=== PATIENT | female | born 1965 | race Caucasian/White ===

== ENCOUNTER → 2016-08-01 | Outpatient (CLI) | payer OTHER | LOC: RAD 12:21 | PROVIDERS: ATTEND Nurse Practitioner Adult Health | DX: M54.2 Cervicalgia (principal); M62.81 Muscle weakness (generalized) | CPT/HCPCS: 72141 ==

== ENCOUNTER 2016-08-24 13:17 | Observation (INO) | payer OTHER ==
--- NOTE | 2016-08-24 13:40 | ER Document Report ---
ED General - General Stated Complaint: FAINTING Mode of Arrival: Medic Information source: Patient Notes: 51-year-old female history of Ronnie de leon presents after a syncopal episode during which she had chest pressure sensation. Patient notes she is currently still having a pressure sensation, patient was found hypotensive by EMS bradycardic. Patient was given fluid bolus and blood pressure improved as well as the heart rate. Patient notes this happens about once every 2 years TRAVEL OUTSIDE OF THE [place] IN LAST 30 DAYS: No - HPI Onset: Just prior to arrival Onset/Duration: Sudden Quality of pain: Pressure Severity: Mild Pain Level: 1 Associated symptoms: Chest pain, Weakness Exacerbated by: Denies Relieved by: Denies Similar symptoms previously: Yes Recently seen / treated by doctor: No - Related Data Allergies/Adverse Reactions: pentazocine lactate [From Talwin] Allergy (Intermediate, Verified 11/30/13 14:04 ) diphenhydramine HCl [From Benadryl] Allergy (Mild, Verified 11/30/13 14:04) metoclopramide HCl [From Reglan] Adverse Reaction (Intermediate, Verified 14:04) Histalet Forte Allergy (Severe, Uncoded 11/30/13 14:04) Past Medical History - Social History Smoking Status: Never Smoker Cigarette use (# per day): No Chew tobacco use (# tins/day): No Smoking Education Provided: No Family History: CAD - Past Medical History Cardiac Medical History: Reports: Hx Hypertension Denies: Hx Pulmonary Embolism Pulmonary Medical History: Reports: Hx Asthma, Hx Bronchitis, Hx Pneumonia - received the pneumovax and influenza vaccine in April Denies: Hx Tuberculosis Neurological Medical History: Reports: Hx Migraine - awaiting an ablation, sees pain management in [place], on Dilaudid 4mg Endocrine Medical History: Reports: Hx Hypothyroidism GI Medical History: Reports: Hx Gastroesophageal Reflux Disease, Hx Ulcer - Stomach Musculoskeltal Medical History: Reports Hx Arthritis, Reports Hx Fibromyalgia Psychiatric Medical History: Reports: Hx Bipolar Disorder, Hx Depression - anxiety Past Surgical History: Reports: Hx Cardiac Catheterization - X 2, Hx Cholecystectomy, Hx Hysterectomy, Hx Orthopedic Surgery - r arm x 10, Hx Thyroid Surgery - thyroidectomy. Denies: Hx Pacemaker - Immunizations Immunizations up to date: Yes Hx Diphtheria, Pertussis, Tetanus Vaccination: Yes Hx Pneumococcal Vaccination: 09/01/10 Review of Systems - Review of Systems Notes: REVIEW OF SYSTEMS: CONSTITUTIONAL : Denies fever, chills, or sweats. Denies recent illness. EENT: Denies eye, ear, throat, or mouth pain or symptoms. Denies nasal or sinus congestion or discharge. Denies throat, tongue, or mouth swelling or difficulty swallowing. CARDIOVASCULAR: admits ot chest pain syncope RESPIRATORY: Denies cough, cold, or chest congestion. Denies shortness of breath, difficulty breathing, or wheezing. GASTROINTESTINAL: Denies abdominal pain or distention. Denies nausea, vomiting , or diarrhea. Denies blood in vomitus, stools, or per rectum. Denies black, tarry stools. Denies constipation. GENITOURINARY: Denies difficulty urinating, painful urination, burning, frequency, blood in urine, or discharge. FEMALE GENITOURINARY: Denies vaginal bleeding, heavy or abnormal periods, irregular periods. Denies vaginal discharge or odor. MUSCULOSKELETAL: Denies back or neck pain or stiffness. Denies joint pain or swelling. SKIN: Denies rash, lesions or sores. HEMATOLOGIC : Denies easy bruising or bleeding. LYMPHATIC: Denies swollen, enlarged glands. NEUROLOGICAL: Denies confusion or altered mental status. Denies passing out or loss of consciousness. Denies dizziness or lightheadedness. Denies headache. Denies weakness or paralysis or loss of use of either side. Denies problems with gait or speech. Denies sensory loss, numbness, or tingling. Denies seizures. PSYCHIATRIC: Denies anxiety or stress. Denies depression, suicidal ideation, or homicidal ideation. ALL OTHER SYSTEMS REVIEWED AND NEGATIVE. Dictation was performed using [employer] voice recognition software PHYSICAL EXAMINATION: GENERAL: Well-appearing, well-nourished and in no acute distress. HEAD: Atraumatic, normocephalic. EYES: Pupils equal round and reactive to light, extraocular movements intact, conjunctiva are normal. ENT: Nares patent, oropharynx clear without exudates. Moist mucous membranes. NECK: Normal range of motion, supple without lymphadenopathy LUNGS: Breath sounds clear to auscultation bilaterally and equal. No wheezes rales or rhonchi. HEART: Regular rate and rhythm without murmurs ABDOMEN: Soft, nontender, nondistended abdomen. No guarding, no rebound. No masses appreciated. Female : deferred Musculoskeletal: Normal range of motion, no pitting or edema. No cyanosis. NEUROLOGICAL: Cranial nerves grossly intact. Normal speech, normal gait. Normal sensory, motor exams PSYCH: Normal mood, normal affect. SKIN: Warm, Dry, normal turgor, no rashes or lesions noted. Physical Exam - Vital signs Vitals: Resp 27 H 08/24/16 13:29 Course - Re-evaluation Re-evalutation: 08/24/16 13:39 Patient initially bradycardic hypotensive currently asymptomatic 08/24/16 14:44 pts bp has improved , hr is now stable, cardiac enzymes negative. 08/24/16 14:47 We'll admit the patient for chest pain - Vital Signs Vital signs: Temp Pulse Resp BP Pulse Ox 98.1 F 63 20 95/71 L 97 08/24/16 13:51 08/24/16 13:51 08/24/16 14:20 08/24/16 14:21 08/24/16 14:21 - Laboratory Result Diagrams: 08/24/16 13:55 08/24/16 13:55 Laboratory results interpreted by me: 08/24/16 13:55 Glucose 121 H Total Bilirubin 1.6 H - Diagnostic Test Radiology reviewed: Image reviewed, Reports reviewed - EKG Interpretation by Nc EKG shows normal: Sinus rhythm, Carson, Intervals, QRS Complexes Discharge - Discharge Clinical Impression: Bradycardia Chest pain Qualifiers: Chest pain type: unspecified Qualified Code(s): R07.9 - Chest pain, unspecified Hypotension Qualifiers: Hypotension type: unspecified hypotension type Qualified Code(s): I95.9 - Hypotension, unspecified Syncope Qualifiers: Syncope type: unspecified Qualified Code(s): R55 - Syncope and collapse Condition: Stable Disposition: ADMITTED OBSERVATION Admitting Provider: Hospitalist Unit Admitted: Telemetry
[2016-08-24] MEDS ORDERED: NORMAL SALINE 1000 ML 1,000 ML IV ONE ×2 (14:09→15:32)
[2016-08-24 14:14] LABS: ABSOLUTE BASOPHILS # (AUTO) 0.1 10^3/uL (0.0-0.2); ABSOLUTE EOSINOPHILS # (AUTO) 0.2 10^3/uL (0.0-0.6); ABSOLUTE LYMPHOCYTES (AUTO) 2.1 10^3/uL (0.5-4.7); ABSOLUTE MONOCYTES (AUTO) 0.6 10^3/uL (0.1-1.4); ABSOLUTE NEUT (AUTO) 7.5 10^3/uL (1.7-8.2); BASOPHILS % (AUTO) 0.5 % (0-2); EOSINOPHILS % (AUTO) 1.6 % (0-6); HEMATOCRIT 39.2 % (36.0-47.0); HEMOGLOBIN 13.4 g/dL (12.0-15.5); LYMPHOCYTES % (AUTO) 20.4 % (13-45); MEAN CORPUSCULAR HEMOGLOBIN 30.8 pg (27.0-33.4); MEAN CORPUSCULAR HGB CONC 34.2 g/dL (32.0-36.0); MEAN CORPUSCULAR VOLUME 90 fl (80-97); MONOCYTES % (AUTO) 5.6 % (3-13); RED BLOOD COUNT 4.35 10^6/uL (3.72-5.28); RED CELL DISTRIBUTION WIDTH 12.9 % (11.5-14.0); SEGMENTED NEUTROPHILS % (AUTO) 71.9 % (42-78); WHITE BLOOD COUNT 10.4 10^3/uL (4.0-10.5)
[2016-08-24 14:32] LABS: ALANINE AMINOTRANSFERASE 22 U/L (9-52); ALBUMIN 3.9 g/dL (3.5-5.0); ALKALINE PHOSPHATASE 79 U/L (38-126); ANION GAP 10 (5-19); ASPARTATE AMINO TRANSFERASE 21 U/L (14-36); BILIRUBIN,TOTAL 1.6 mg/dL (0.2-1.3); BLOOD UREA NITROGEN 9 mg/dL (7-20); CALCIUM 9.2 mg/dL (8.4-10.2); CARBON DIOXIDE 24 mmol/L (22-30); CHLORIDE 105 mmol/L (98-107); CREATINE KINASE 48 U/L (30-135); CREATININE RESULT 0.57 mg/dL (0.52-1.25); GLUCOSE 121 mg/dL (75-110); POTASSIUM 3.8 mmol/L (3.6-5.0); SODIUM 138.8 mmol/L (137-145); TOTAL PROTEIN 6.6 g/dL (6.3-8.2)
[2016-08-24 14:42] LABS: CREATINE KINASE MB 0.35 ng/mL (<4.55)
[2016-08-24 14:44] LABS: TROPONIN I < 0.012 ng/mL
[2016-08-24] MEDS ORDERED: ACETAMINOPHEN 325 MG TABLET PO ONE (14:44)
[2016-08-24] MEDS ORDERED: ASPIRIN 325 MG TABLET PO ONE (14:47)
[2016-08-24] MEDS ORDERED: ACETAMINOPHEN 325 MG TABLET PO PRN (15:32)
[2016-08-24] MEDS ORDERED: MAGNESIUM HYDROXIDE SUSP 30 ML UDCUP PO PRN (15:32)
[2016-08-24] MEDS ORDERED: IPRATROPIUM/ALBUTEROL 0.5-2.5 MG/3 ML AMPUL NEB PRN ×2 (15:32→16:34)
[2016-08-24 16:14] LABS: PHOSPHORUS 3.9 mg/dL (2.5-4.5)
--- NOTE | 2016-08-24 16:18 | PDOC H&P ---
History of Present Illness Admission Date/PCP: JENNIFER JEWELL MD Patient complains of: Syncope History of Present Illness: RACHANA HODGE is a 51 year old female presents from home by EMS after a syncopal episode. She states she awoke this morning and just didn't feel right complaining of some heaviness in her chest and general malaise. Company arrived a few hours later and when she approached the front door to let them in the next thing she remembers she woke up on the floor with EMS standing over her. She reports worsening of the chest heaviness just prior to the episode. EMS reports sinus bradycardia with a rate of 42 and hypotension with a systolic blood pressure of 80, she was started on IV fluids and transported to the emergency department. She denies sharp chest pain, palpitations, dizziness, headache, vision changes, hearing changes, dysuria, fever/chills, melena, hematochezia, nausea vomiting or diarrhea, abdominal pain. No recent sick contacts. No recent travel. She does, however report recent glaucoma surgery and the use of 3 different kinds of eyedrops for the last several days though she is unsure of their names. Evaluation in the emergency department was relatively unrevealing and her blood pressure responded to fluids and is now 112/75 and heart rate is in the 70s and a normal sinus rhythm on monitor. We were asked to admit for further evaluation and management. Of note for sick cardiac enzymes are negative and her EKG shows no ischemic changes. Likewise she reports previous heart catheter in the and she was told she had a "weak heart" but no ballooning or stenting was performed at that time. Full details are a bit fuzzy. Past Medical History Cardiac Medical History: Reports: Hypertension Denies: Pulmonary Embolism Pulmonary Medical History: Reports: Asthma, Bronchitis, Pneumonia - received the pneumovax and influenza vaccine in April Denies: Tuberculosis Neurological Medical History: Reports: Migraine - awaiting an ablation, sees pain management in [place], on Dilaudid 4mg Endocrine Medical History: Reports: Hypothyroidism GI Medical History: Reports: Gastroesophageal Reflux Disease Musculoskeltal Medical History: Reports: Arthritis, Fibromyalgia Psychiatric Medical History: Reports: Bipolar Disorder, Depression - anxiety Past Surgical History Past Surgical History: Reports: Cardiac Catheterization - X 2, Cholecystectomy, Hysterectomy, Orthopedic Surgery - r arm x 10 Denies: Pacemaker Social History Smoking Status: Never Smoker Hx Recreational Drug Use: No Hx Prescription Drug Abuse: Yes - Advance Directive Resuscitation Status: Full Code Family History Family History: CAD Parental Family History Reviewed: Yes Children Family History Reviewed: Yes Sibling(s) Family History Reviewed.: Yes Medication/Allergy Home Medications: Albuterol Sulfate [Proair HFA] 2 puff IH Q4HP PRN 08/24/16 Atorvastatin Calcium [Lipitor 40 mg Tablet] 40 mg PO Q2DAYS 08/24/16 Citalopram Hydrobromide [Celexa] 40 mg PO DAILY 08/24/16 Diazepam [Valium 5 mg Tablet] 5 mg PO BIDP PRN 08/24/16 Furosemide [Lasix] 20 mg PO DAILY 08/24/16 Hydromorphone HCl [Dilaudid] 4 mg PO Q6HP PRN 08/24/16 Ipratropium/Albuterol Sulfate [Duoneb 3 ml Ampul] 1 vial IH Q4HP PRN 08/24/16 Levothyroxine Sodium [Synthroid 0.15 mg Tablet] 0.15 mg PO DAILY 08/24/16 Morphine Sulfate [Ms-Contin Sr 15 mg Tablet] 15 mg PO BID 08/24/16 Omeprazole 40 mg PO DAILY 08/24/16 Oxcarbazepine [Trileptal] 300 mg PO BID 08/24/16 Promethazine HCl [Phenergan 25 mg Tablet] 25 mg PO DAILYP PRN 08/24/16 Risperidone [Risperdal] 2 mg PO BID 08/24/16 Temazepam [Restoril 15 mg Capsule] 15 mg PO HSP PRN 08/24/16 Travoprost (Benzalkonium) [Travatan 0.004% Eye Drop] 1 drop OS QHS 08/24/16 Allergies/Adverse Reactions: pentazocine lactate [From Talwin] Allergy (Intermediate, Verified 11/30/13 14:04 ) diphenhydramine HCl [From Benadryl] Allergy (Mild, Verified 11/30/13 14:04) metoclopramide HCl [From Reglan] Adverse Reaction (Intermediate, Verified 14:04) Histalet Forte Allergy (Severe, Uncoded 11/30/13 14:04) Review of Systems Constitutional: ABSENT: chills, fever(s), headache(s), weight gain, weight loss Eyes: ABSENT: visual disturbances Ears: ABSENT: hearing changes Cardiovascular: PRESENT: chest pain. ABSENT: dyspnea on exertion, edema, orthropnea, palpitations Respiratory: ABSENT: cough, hemoptysis Gastrointestinal: ABSENT: abdominal pain, constipation, diarrhea, hematemesis, hematochezia, nausea, vomiting Genitourinary: ABSENT: dysuria, hematuria Musculoskeletal: ABSENT: joint swelling Integumentary: ABSENT: rash, wounds Neurological: ABSENT: abnormal gait, abnormal speech, confusion, dizziness, focal weakness, syncope Psychiatric: ABSENT: anxiety, depression Endocrine: ABSENT: cold intolerance, heat intolerance, polydipsia, polyuria Hematologic/Lymphatic: ABSENT: easy bleeding, easy bruising Physical Exam Vital Signs: Temp Pulse Resp BP Pulse Ox 98.1 F 63 20 95/71 L 97 08/24/16 13:51 08/24/16 13:51 08/24/16 14:20 08/24/16 14:21 08/24/16 14:21 Intake & Output 08/23/16 08/24/16 08/25/16 06:59 06:59 06:59 Weight 79.379 kg PHYSICAL EXAM GENERAL: NAD; well developed, well nourished; no obese; alert and oriented to person, place, time, situation HEENT: normocephalic, atraumatic; EOMI, PERRLA, right greater than left conjunctival injection, no scleral icterus; oral mucosa moist, neck supple, no LAD, normal ROM RESPIRATORY: no accessory muscle use, no increased WOB, good air entry bilaterally; no wheezes, rales, rhonchi; no inspiratory crackles CARDIO: no JVD; RRR; no systolic murmur; no tachycardia; normal sinus rhythm on the monitor without ectopy VASCULAR: no carotid bruit; no abdominal bruit; no pallor; 2+ radial, DP pulse ; normal capillary refill GI: soft; nondistended; normal bowel sounds; no hepato spleno megaly; no rebound, rigidity, guarding; nontender NEURO: normal patella reflexes; normal sensation; normal motor function; no dysarthria; no nystagmus; tongue protrudes midline; normal finger to nose; MSK: 5/5 strength; normal ROM hips; ambulatory without assistance; no tenderness EXTREMITIES: no calf tender; no palpable cords in calf; no clubbing, cyanosis , pedal edema PSYCH: normal affect, normal mood SKIN: warm; moist; no petechiae; no telengectasias; no jaundice; no rash Results Laboratory Results: 08/24/16 13:55 08/24/16 13:55 08/24/16 08/24/16 08/24/16 13:55 13:55 13:55 WBC 10.4 RBC 4.35 Hgb 13.4 Hct 39.2 MCV 90 MCH 30.8 MCHC 34.2 RDW 12.9 Plt Count 203 Seg Neutrophils % 71.9 Lymphocytes % 20.4 Monocytes % 5.6 Eosinophils % 1.6 Basophils % 0.5 Absolute Neutrophils 7.5 Absolute Lymphocytes 2.1 Absolute Monocytes 0.6 Absolute Eosinophils 0.2 Absolute Basophils 0.1 Sodium 138.8 Potassium 3.8 Chloride 105 Carbon Dioxide 24 Anion Gap 10 BUN 9 Creatinine 0.57 Est GFR ( Amer) > 60 Est GFR (Non-Af Amer) > 60 Glucose 121 H Lactic Acid 1.4 Calcium 9.2 Total Bilirubin 1.6 H AST 21 ALT 22 Alkaline Phosphatase 79 Total Protein 6.6 Albumin 3.9 08/24/16 08/24/16 13:55 13:55 Creatine Kinase 48 CK-MB (CK-2) 0.35 Troponin I < 0.012 Labs reviewed and relatively unremarkable Assessment & Plan - Diagnosis (1) Bradycardia Is this a current diagnosis for this admission?: YesPlan: Unclear etiology. Possible adverse reaction to medication if she is taking timolol eyedrops for her recent glaucoma. Admit to telemetry floor for overnight monitoring, trend cardiac enzymes and check a stat echocardiogram. (2) Hypotension Qualifiers: Hypotension type: unspecified hypotension type Qualified Code(s): I95.9 - Hypotension, unspecified Plan: Unclear etiology. Continue IV fluids started in the emergency department and monitor volume status. Otherwise investigation as above. (3) Syncope Qualifiers: Syncope type: unspecified Qualified Code(s): R55 - Syncope and collapse Is this a current diagnosis for this admission?: YesPlan: Likely related to the above, and investigation as noted. Also check magnesium, phosphorus, B12. Patient reports recent TSH that was normal. Check carotid Dopplers. (4) Bipolar I disorder Is this a current diagnosis for this admission?: YesPlan: Resume home regimen. (5) Opioid dependence Is this a current diagnosis for this admission?: YesPlan: Titrate home regimen and based on her clinical condition at the time. - Time Time Spent: 50 to 70 Minutes Medications reviewed and adjusted accordingly: Yes Anticipated discharge: Home Within: within 24 hours
[2016-08-24] MEDS ORDERED: ALBUTEROL SULFATE HFA (90 MCG/PUFF) 8 GM MDI (1 MDI/ER DISP) IH PRN (16:34)
[2016-08-24] MEDS ORDERED: PROMETHAZINE HCL 25 MG TABLET PO PRN (16:34)
[2016-08-24] MEDS ORDERED: TEMAZEPAM 15 MG CAPSULE PO PRN (16:34)
[2016-08-24 17:32] LABS: APPEARANCE,URINE SLIGHTLY-CLOUDY; BILIRUBIN,URINE NEGATIVE (NEGATIVE); GLUCOSE, URINE NEGATIVE (NEGATIVE); KETONES,URINE NEGATIVE (NEGATIVE); LEUKOCYTE ESTERASE,URINE NEGATIVE (NEGATIVE); NITRITE,URINE NEGATIVE (NEGATIVE); PROTEIN,URINE NEGATIVE (NEGATIVE); URINE SPECIFIC GRAVITY 1.005; UROBILINOGEN,URINE NEGATIVE mg/dL (<2.0)
[2016-08-24 17:48] LABS: URINE METHADONE SCREEN NEGATIVE; URINE OPIATES LOW UNCONFIRMED POSITIVE; URINE PHENCYCLIDINE SCREEN NEGATIVE
[2016-08-24 17:54] LABS: URINE BARBITURATES SCREEN NEGATIVE
[2016-08-24] MEDS ORDERED: BESIFLOXACIN HCL 0.6% OPH SUSP 5 ML BOTTLE OD SCH (18:00)
[2016-08-24] MEDS ORDERED: (PENDING PHARMACY ID) (Loteprednol Etabonate [Lotemax] 1 DROP) OD SCH (18:00)
[2016-08-24] MEDS: NORMAL SALINE 1000 ML 1,000 ML IV PRN (18:20)
--- NOTE | 2016-08-24 18:30 | XCELERA REPORT ---
[address] [address] Transthoracic Echocardiogram Report Name: RACHANA HODGE Age: 51 yrs Gender: Female : 1965 Patient Status: Inpatient Patient Location: \S\02\S\A Study Date: 08/24/2016 05:18 PM Height: 65 in Weight: 175 lb BSA: 1.9 m2 Procedure: A complete two-dimensional transthoracic echocardiogram was performed (2D, M-mode, spectral and color flow Doppler). The study was technically adequate with some images being suboptimal in quality. Reason For Study: SYNCOPE Ordering Physician: CARMEN DUVALL Performed By: Norma Pop Interpretation Summary The left ventricular ejection fraction is normal. Doppler measurements suggest pseudonormalized left ventricular relaxation, which is associated with grade II/IV or mild to moderate diastolic dysfunction There is borderline concentric left ventricular hypertrophy. The left ventricle is grossly normal size. Wall motion cannot be accurately commented on, but no definite regional wall motion abnormalities noted. Borderline right ventricular enlargement. The right ventricular systolic function is normal. The right atrium is normal in size The left atrial size is normal. There is no mitral valve stenosis. There is no mitral regurgitation noted. There is no aortic valve stenosis No aortic regurgitation is present. There is no tricuspid stenosis. There is a trace or physiologic amount of tricuspid regurgitation Tricuspid regurgitation jet envelope not well defined to measure RV systolic pressure accurately. There is no pericardial effusion. MMode/2D Measurements \T\ Calculations RVDd: 2.4 cm LVIDd: 4.5 cm FS: 32.9 % Ao root diam: 3.0 cm IVSd: 1.0 cm LVIDs: 3.0 cm EDV(Teich): 91.5 ml LVPWd: 0.95 cmESV(Teich): 35.2 ml Ao root area: 7.0 cm2 EF(Teich): 61.6 % LA dimension: 3.5 cm LVOT diam: 1.8 cm LVOT area: 2.5 cm2 Doppler Measurements \T\ Calculations MV E max yareli: MV P1/2t max yareli: Ao V2 max: LV V1 max P.1 cm/sec 110.1 cm/sec 159.5 cm/sec 6.1 mmHg MV A max yareli: MV P1/2t: 64.7 msec Ao max PG: LV V1 max: 101.2 cm/sec MVA(P1/2t): 3.4 cm2 10.2 mmHg 123.9 cm/sec MV E/A: 1.1 MV dec slope: KRYSTAL(V,D): 2.0 cm2 498.4 cm/sec2 PA V2 max: TR max yareli: 82.9 cm/sec 197.6 cm/sec PA max PG: TR max P.6 mmHg 2.8 mmHg Left Ventricle The left ventricle is grossly normal size. There is borderline concentric left ventricular hypertrophy. The left ventricular ejection fraction is normal. Doppler measurements suggest pseudonormalized left ventricular relaxation, which is associated with grade II/IV or mild to moderate diastolic dysfunction. Wall motion cannot be accurately commented on, but no definite regional wall motion abnormalities noted. Right Ventricle Borderline right ventricular enlargement. There is normal right ventricular wall thickness. The right ventricular systolic function is normal. Atria The right atrium is normal in size. The left atrial size is normal. Interarterial septum not well visualized and not well dopplered. Cannot comment on ASD/PFO presence. Mitral Valve The mitral valve is grossly normal. There is no mitral valve stenosis. There is no mitral regurgitation noted. Aortic Valve The aortic valve is grossly normal. There is no aortic valve stenosis. No aortic regurgitation is present. Tricuspid Valve The tricuspid valve is not well visualized, but is grossly normal. There is no tricuspid stenosis. There is a trace or physiologic amount of tricuspid regurgitation. Tricuspid regurgitation jet envelope not well defined to measure RV systolic pressure accurately. Pulmonic Valve The pulmonic valve is not well visualized. Great Vessels The aortic root is not well visualized but is probably normal size. The inferior vena cava was not well visualized. Effusions There is no pericardial effusion. : CARMEN DUVALL > Indigo [facility]
--- NOTE | 2016-08-24 19:29 | EKG REPORT ---
SEVERITY:- ABNORMAL ECG - SINUS RHYTHM LEFT VENTRICULAR HYPERTROPHY : Confirmed by: Yadi Rosas MD 24-Aug-2016 19:28:13
[2016-08-24] MEDS ORDERED: RISPERIDONE 1 MG TABLET PO SCH (22:00)
[2016-08-24] MEDS ORDERED: OXCARBAZEPINE 150 MG TABLET PO SCH (22:00)
[2016-08-24] MEDS ORDERED: MORPHINE SULFATE SR 15 MG TABLET PO SCH (22:00)
[2016-08-24] MEDS ORDERED: (PENDING PHARMACY ID) (Travoprost (Benzalkonium) [Travatan 0.004% Eye Drop] 1 DROP) OS SCH (22:00)
[2016-08-24] MEDS ORDERED: PROMETHAZINE HCL INJ 25 MG/1 ML VIAL IV PRN (22:55)
[2016-08-25] MEDS: NORMAL SALINE 1000 ML 1,000 ML IV PRN (05:30)
[2016-08-25] MEDS ORDERED: ENOXAPARIN SODIUM INJ 40 MG/0.4 ML DISP.SYRIN SUBCUT SCH (08:00)
[2016-08-25] MEDS ORDERED: LANSOPRAZOLE 30 MG TAB.RAP.DR PO SCH (08:00)
[2016-08-25 09:31] VITALS: BP 141/86
[2016-08-25] MEDS ORDERED: CITALOPRAM HYDROBROMIDE 20 MG TABLET PO SCH (10:00)
[2016-08-25] MEDS ORDERED: BRIMONIDINE TARTRATE 0.2% OPH SOLN 5 ML OS SCH (10:00)
[2016-08-25] MEDS ORDERED: DORZOLAMIDE HCL 2% OPH SOLN 10 ML OS SCH (10:00)
[2016-08-25] MEDS ORDERED: DOCUSATE SODIUM 100 MG CAPSULE PO SCH (10:00)
[2016-08-25] MEDS ORDERED: LEVOTHYROXINE SODIUM 0.15 MG TABLET PO SCH (10:00)
--- NOTE | 2016-08-25 13:47 | PDOC DISCHARGE SUMMARY ---
General - Admit/Disc Date/PCP Admission Date/Primary Care Provider: 08/24/16 15:32 JENNIFER JEWELL MD Discharge Date: 08/25/16 - Discharge Diagnosis (1) Bradycardia Is this a current diagnosis for this admission?: YesSummary: Unclear etiology. Possible adverse reaction to pain medication or vasovagal reaction. (2) Hypotension Summary: Possible volume completion due to lack of oral intake over the last 48 hours, seems to have resolved with IV fluids. Possibly vasovagal reaction as noted above. (3) Syncope Is this a current diagnosis for this admission?: YesSummary: Appears to be vasovagal syncope, unclear trigger. Patient reports several family members suffer from similar "drop attacks" and she too had multiple episodes of "falling out" as a teenager. This is the first such attack she has suffered in several years. She was instructed if this were to recur to pursue neurologic and cardiac evaluation with tilt table testing looking for vasovagal hyperactivity. (4) Bipolar I disorder Is this a current diagnosis for this admission?: Yes (5) Opioid dependence Is this a current diagnosis for this admission?: YesSummary: She was counseled that the potent narcotic regimen she takes predisposes to vasovagal syncope and sensitivity but she is reluctant to reduce her dosages. She is to follow-up with her pain clinic physician for further recommendations. - Additional Information Resuscitation Status: Full Code Discharge Diet: As Tolerated Discharge Activity: Activity As Tolerated Home Medications: Albuterol Sulfate [Proair HFA] 2 puff IH Q4HP PRN 08/24/16 Atorvastatin Calcium [Lipitor 40 mg Tablet] 40 mg PO Q2DAYS 08/24/16 Besifloxacin HCl [Besivance Drops] 1 drop OD TID 08/24/16 Brimonidine Tartrate [Alphagan 0.2% Oph Soln 5 ml] 1 drop OS TID 08/24/16 Citalopram Hydrobromide [Celexa] 40 mg PO DAILY 08/24/16 Diazepam [Valium 5 mg Tablet] 5 mg PO BIDP PRN 08/24/16 Dorzolamide HCl [Trusopt Plus 2% Oph Soln 10 ml] 1 drop OS TID 08/24/16 Furosemide [Lasix] 20 mg PO DAILY 08/24/16 Hydromorphone HCl [Dilaudid] 4 mg PO Q6HP PRN 08/24/16 Ipratropium/Albuterol Sulfate [Duoneb 3 ml Ampul] 1 vial IH Q4HP PRN 08/24/16 Levothyroxine Sodium [Synthroid 0.15 mg Tablet] 0.15 mg PO DAILY 08/24/16 Loteprednol Etabonate [Lotemax] 1 drop OD QID 08/24/16 Morphine Sulfate [Ms-Contin Sr 15 mg Tablet] 15 mg PO BID 08/24/16 Omeprazole 40 mg PO DAILY 08/24/16 Oxcarbazepine [Trileptal] 300 mg PO BID 08/24/16 Promethazine HCl [Phenergan 25 mg Tablet] 25 mg PO Q6H PRN 08/24/16 Risperidone [Risperdal] 2 mg PO BID 08/24/16 Temazepam [Restoril 15 mg Capsule] 15 mg PO HSP PRN 08/24/16 Travoprost (Benzalkonium) [Travatan 0.004% Eye Drop] 1 drop OS QHS 08/24/16 History of Present Illness Patient complains of: Syncope History of Present Illness: presents from home by EMS after a syncopal episode. Hospital Course Hospital Course: She states she awoke this morning and just didn't feel right complaining of some heaviness in her chest and general malaise. Company arrived a few hours later and when she approached the front door to let them in the next thing she remembers she woke up on the floor with EMS standing over her. She reports worsening of the chest heaviness just prior to the episode. EMS reports sinus bradycardia with a rate of 42 and hypotension with a systolic blood pressure of 80, she was started on IV fluids and transported to the emergency department. She denies sharp chest pain, palpitations, dizziness, headache, vision changes, hearing changes, dysuria, fever/chills, melena, hematochezia, nausea vomiting or diarrhea, abdominal pain. No recent sick contacts. No recent travel. She does, however report recent glaucoma surgery and the use of 3 different kinds of eyedrops for the last several days though she is unsure of their names. Evaluation in the emergency department was relatively unrevealing and her blood pressure responded to fluids and is now 112/75 and heart rate is in the 70s and a normal sinus rhythm on monitor. We were asked to admit for further evaluation and management. Of note for sick cardiac enzymes are negative and her EKG shows no ischemic changes. Likewise she reports previous heart catheter in the and she was told she had a "weak heart" but no ballooning or stenting was performed at that time. Full details are a bit fuzzy. She was admitted to the hospital and underwent an investigation with the laboratory work that showed no evidence of cardiac ischemia, echocardiogram was largely unremarkable just showing a mild LVH, carotid Dopplers did not reveal any significant plaquing or stenosis and all of her laboratory work was largely unrevealing, her B12 level was low normal. She was instructed to begin oral B12 replacement therapy. Overnight monitoring on telemetry revealed only a very mild bradycardia dropping to 57 and her BP responded to IVFs without recurrence of her symptoms throughout her stay. at this point she is stable for discharge home and expresses no concerns to me about doing so at this time. Physical Exam Vital Signs: Temp Pulse Resp BP Pulse Ox 97.7 F 64 16 141/86 H 99 08/25/16 09:00 08/25/16 09:00 08/25/16 09:00 08/25/16 09:00 08/25/16 09:00 Intake & Output 08/24/16 08/25/16 08/26/16 06:59 06:59 06:59 Intake Total 1600 Output Total 800 Balance 800 Weight 96.8 kg PHYSICAL EXAM GENERAL: NAD; well developed, well nourished; no obese; alert and oriented to person, place, time, situation HEENT: normocephalic, atraumatic; EOMI, PERRLA, right greater than left conjunctival injection, no scleral icterus; oral mucosa moist, neck supple, no LAD, normal ROM RESPIRATORY: no accessory muscle use, no increased WOB, good air entry bilaterally; no wheezes, rales, rhonchi; no inspiratory crackles CARDIO: no JVD; RRR; no systolic murmur; no tachycardia; normal sinus rhythm on the monitor without ectopy VASCULAR: no carotid bruit; no abdominal bruit; no pallor; 2+ radial, DP pulse ; normal capillary refill GI: soft; nondistended; normal bowel sounds; no hepato spleno megaly; no rebound, rigidity, guarding; nontender NEURO: normal patella reflexes; normal sensation; normal motor function; no dysarthria; no nystagmus; tongue protrudes midline; normal finger to nose; MSK: 5/5 strength; normal ROM hips; ambulatory without assistance; no tenderness EXTREMITIES: no calf tender; no palpable cords in calf; no clubbing, cyanosis , pedal edema PSYCH: normal affect, normal mood SKIN: warm; moist; no petechiae; no telengectasias; no jaundice; no rash Results Laboratory Results: 08/24/16 17:10 Urine Color YELLOW Urine Appearance SLIGHTLY-CLOUDY Urine pH 6.0 Ur Specific [place] 1.005 Urine Protein NEGATIVE Urine Glucose (UA) NEGATIVE Urine Ketones NEGATIVE Urine Blood NEGATIVE Urine Nitrite NEGATIVE Ur Leukocyte Esterase NEGATIVE Urine WBC (Auto) 2 08/24/16 08/25/16 08/25/16 20:50 02:02 08:27 Troponin I < 0.012 < 0.012 < 0.012 Impressions: Carotid Doppler Study 08/24/16 00:00 IMPRESSION: NO HEMODYNAMICALLY SIGNIFICANT STENOSIS. Head CT 08/24/16 00:00 IMPRESSION: NORMAL BRAIN CT WITHOUT CONTRAST. Qualifiers PATEINT BEING DISCHARGED WITH ANY OF THE FOLLOWING DIAGNOSIS?: No VTE patient discharged on overlapping Therapy?: Yes Plan Discharge Plan: Discharge home with outpatient follow-up with his primary care provider in one week, return to the emergency department for any recurrent symptoms.
== END 2016-08-25 10:05 | disposition home or self-care (01) ==
LOC: ER 13:17 → EH 15:32 → UNDOADMOB 15:41 → EH 15:41 → 4W 19:41
PROVIDERS: ADMIT Internal Medicine; ATTEND Internal Medicine
DX: R00.1 Bradycardia, unspecified (principal); I95.9 Hypotension, unspecified; R55 Syncope and collapse; F31.9 Bipolar disorder, unspecified; F11.20 Opioid dependence, uncomplicated; I10 Essential (primary) hypertension; J45.909 Unspecified asthma, uncomplicated; E03.9 Hypothyroidism, unspecified; K21.9 Gastro-esophageal reflux disease without esophagitis; R07.9 Chest pain, unspecified
CPT/HCPCS: 93005; 99285; 36415 ×2; 82553; 82607; 82550; 83605; 83735; 84100; 85025; 80053; 81001; 84484 ×2; 80307; 83036; 93306; 93880; 70450; 93010; G0378 ×3; J3490 ×4; J7030 ×2

== ENCOUNTER → 2018-02-21 | Outpatient (CLI) | payer OTHER ==
--- NOTE | 2018-02-22 10:49 | RADIOLOGY REPORT (SQ) ---
EXAM DESCRIPTION: MRI LUMBAR SPINE WITHOUT COMPLETED DATE/TIME: 02/21/2018 3:05 pm REASON FOR STUDY: LOW BACK PAIN M47.817 SPONDYLS W/O MYELOPATHY OR RADICULOPATHY, LUMBOSACR COMPARISON: None. TECHNIQUE: Sagittal and Axial imaging includes T1, T2, STIR and gradient echo sequences. Coronal T2/ HASTE imaging. LIMITATIONS: None. FINDINGS: VISUALIZED UPPER ABDOMEN: Limited evaluation. No acute or suspicious findings suggested. SEGMENTATION: No transitional anatomy. The lowest well-developed disc space is labeled L5-S1. ALIGNMENT: Minimal grade 1 listhesis L4-5. VERTEBRAE: Intact. BONE MARROW: Normal. No marrow replacement or reactive changes. DISC SIGNAL: Discs are relatively maintained. POSTERIOR ELEMENTS: No pars defect. Multilevel facet arthropathy. HARDWARE: None in the spine. CORD AND CONUS: Normal in size and signal intensity. Conus at the appropriate level. SOFT TISSUES: No aortic aneurysm seen. No bulky retroperitoneal adenopathy or mass. No paraspinal mas s or fluid. L1-L2: No significant spinal stenosis or exit foraminal stenosis. L2-L3: Mild left foraminal narrowing. L3-L4: Mild bilateral foraminal narrowing. L4-L5: Minimal central canal encroachment. Moderate bilateral foraminal narrowing. L5-S1: No significant spinal stenosis or exit foraminal stenosis. LOWER THORACIC: Incompletely imaged. No stenosis seen. SACRUM: Visualized upper sacrum intact. OTHER: No other significant findings. IMPRESSION: 1. Spondylosis. Degenerative changes are largely related to facet arthropathy. No lar ge disc bulges or hernias. No high-grade central narrowing. Up to moderate foraminal stenosis at th e L4-5 level. TECHNICAL DOCUMENTATION: JOB ID: [id number] [facility]- All Rights Reserved Reading location - IP/workstation name: [email or web address]
== END ==
LOC: RAD 14:28
PROVIDERS: ATTEND Physician Assistant
DX: M47.817 Spondylosis without myelopathy or radiculopathy, lumbosacral region (principal)
CPT/HCPCS: 72148

== ENCOUNTER → 2018-11-30 | Outpatient (CLI) | payer OTHER ==
--- NOTE | 2018-11-30 19:26 | EKG REPORT ---
SEVERITY:- ABNORMAL ECG - SINUS RHYTHM LEFT VENTRICULAR HYPERTROPHY : Confirmed by: Chivo Hsu MD 30-Nov-2018 19:25:23
== END ==
LOC: OD 15:14
PROVIDERS: ATTEND Physician Assistant
DX: Z79.899 Other long term (current) drug therapy (principal)
CPT/HCPCS: 93005; 93010

== ENCOUNTER 2019-06-01 10:49 | Emergency (ER) | payer OTHER ==
--- NOTE | 2019-06-01 11:08 | ER Document Report ---
ED Medical Screen (RME) - General Chief Complaint: Chest Pain Stated Complaint: CHEST PAIN Time Seen by Provider: 06/01/19 11:03 Primary Care Provider: RICHELLE ROSAS PA [Primary Care Provider] - Follow up as needed Notes: 53-year-old female with hypertension, hyperlipidemia, asthma, GERD, bipolar disorder, generalized anxiety disorder presents the emergency department with chest pain that started at 830 this morning. Patient states that she just felt very sluggish and was unable to get up to run errands and has had a pressure like feeling in her chest that radiates into her left arm. Patient did have some nausea last night. Denies diaphoresis, denies dyspnea on exertion or shortness of breath, patient is not a smoker Exam: Well acute appearing in no acute distress, lungs are clear to auscultation all [place], regular cardiac rate and rhythm, S1-S2 heard with no murmurs I have greeted and performed a rapid initial assessment of this patient. A comprehensive ED assessment and evaluation of the patient, analysis of test results and completion of medical decision making process will be conducted by an additional ED providers. TRAVEL OUTSIDE OF THE [place] IN LAST 30 DAYS: No - Related Data Allergies/Adverse Reactions: pentazocine lactate [From Talwin] Allergy (Intermediate, Verified 06/01/19 11:03) diphenhydramine HCl [From Benadryl] Allergy (Mild, Verified 06/01/19 11:03) metoclopramide HCl [From Reglan] Adverse Reaction (Intermediate, Verified 06/01/19 11:03) Histalet Forte Allergy (Severe, Uncoded 06/01/19 11:03) Past Medical History - Past Medical History Cardiac Medical History: Reports: Hx Hypertension Denies: Hx Pulmonary Embolism Pulmonary Medical History: Reports: Hx Asthma, Hx Bronchitis, Hx Pneumonia - received the pneumovax and influenza vaccine in April Denies: Hx Tuberculosis Neurological Medical History: Reports: Hx Migraine - awaiting an ablation, sees pain management in [place], on Dilaudid 4mg Endocrine Medical History: Reports: Hx Hypothyroidism GI Medical History: Reports: Hx Gastroesophageal Reflux Disease, Hx Ulcer - Stomach Musculoskeltal Medical History: Reports Hx Arthritis, Reports Hx Fibromyalgia Psychiatric Medical History: Reports: Hx Bipolar Disorder, Hx Depression - anxiety Past Surgical History: Reports: Hx Cardiac Catheterization - X 2, Hx Cholecystectomy, Hx Hysterectomy, Hx Orthopedic Surgery - r arm x 10, Hx Thyroid Surgery - thyroidectomy. Denies: Hx Pacemaker - Immunizations Immunizations up to date: Yes Hx Diphtheria, Pertussis, Tetanus Vaccination: Yes Doctor's Discharge - Discharge Referrals: RICHELLE ROSAS PA [Primary Care Provider] - Follow up as needed
[2019-06-01 11:39] LABS: ABSOLUTE BASOPHILS # (AUTO) 0.1 10^3/uL (0.0-0.2); ABSOLUTE EOSINOPHILS # (AUTO) 0.2 10^3/uL (0.0-0.6); ABSOLUTE LYMPHOCYTES (AUTO) 1.9 10^3/uL (0.5-4.7); ABSOLUTE MONOCYTES (AUTO) 0.6 10^3/uL (0.1-1.4); ABSOLUTE NEUT (AUTO) 4.8 10^3/uL (1.7-8.2); BASOPHILS % (AUTO) 0.8 % (0-2); EOSINOPHILS % (AUTO) 2.2 % (0-6); HEMATOCRIT 41.3 % (36.0-47.0); HEMOGLOBIN 14.4 g/dL (12.0-15.5); LYMPHOCYTES % (AUTO) 25.3 % (13-45); MEAN CORPUSCULAR HEMOGLOBIN 31.7 pg (27.0-33.4); MEAN CORPUSCULAR HGB CONC 34.8 g/dL (32.0-36.0); MEAN CORPUSCULAR VOLUME 91 fl (80-97); MONOCYTES % (AUTO) 8.2 % (3-13); PLATELET COUNT 193 10^3/uL (150-450); RED BLOOD COUNT 4.53 10^6/uL (3.72-5.28); RED CELL DISTRIBUTION WIDTH 13.6 % (11.5-14.0); SEGMENTED NEUTROPHILS % (AUTO) 63.5 % (42-78); TOTAL CELLS COUNTED % (AUTO) 100 %; WHITE BLOOD COUNT 7.6 10^3/uL (4.0-10.5)
[2019-06-01 12:16] LABS: ALKALINE PHOSPHATASE 70 U/L (38-126); ANION GAP 10 (5-19); ASPARTATE AMINO TRANSFERASE 20 U/L (14-36); BILIRUBIN,DIRECT 0.1 mg/dL (0.0-0.4); BILIRUBIN,TOTAL 0.9 mg/dL (0.2-1.3); BLOOD UREA NITROGEN 5 mg/dL (7-20); CALCIUM 8.9 mg/dL (8.4-10.2); CARBON DIOXIDE 26 mmol/L (22-30); CHLORIDE 105 mmol/L (98-107); GLUCOSE 129 mg/dL (75-110); POTASSIUM 3.6 mmol/L (3.6-5.0); TOTAL PROTEIN 7.1 g/dL (6.3-8.2)
--- NOTE | 2019-06-01 12:28 | RADIOLOGY REPORT (SQ) ---
EXAM DESCRIPTION: CHEST 2 VIEWS COMPLETED DATE/TIME: 06/01/2019 12:21 pm REASON FOR STUDY: chest pain COMPARISON: 12/01/2013 EXAM PARAMETERS: NUMBER OF VIEWS: two views TECHNIQUE: Digital Frontal and Lateral radiographic views of the chest acquired. RADIATION DOSE: NA LIMITATIONS: none FINDINGS: LUNGS AND PLEURA: No opacities, masses or pneumothorax. No pleural effusion. MEDIASTINUM AND HILAR STRUCTURES: No masses or contour abnormalities. HEART AND VASCULAR STRUCTURES: Heart normal size. No evidence for failure. BONES: No acute findings. HARDWARE: None in the chest. OTHER: No other significant finding. IMPRESSION: NO ACUTE RADIOGRAPHIC FINDING IN THE CHEST. TECHNICAL DOCUMENTATION: JOB ID: [id number] [employer]- All Rights Reserved Reading location - IP/workstation name: [email or web address]
[2019-06-01] MEDS ORDERED: HYDROMORPHONE HCL 2 MG TABLET PO ONE (14:17)
[2019-06-01] MEDS ORDERED: ASPIRIN 81 MG TABLET, CHEWABLE PO ONE (14:17)
--- NOTE | 2019-06-01 14:27 | ER Document Report ---
ED General - General Chief Complaint: Chest Pain Stated Complaint: CHEST PAIN Time Seen by Provider: 06/01/19 11:03 Primary Care Provider: MAYELA KEARNS MD [ACTIVE STAFF] - Follow up as needed RICHELLE ROSAS PA [PHYSICIAN DOOR INSTALLER] - Follow up as needed Notes: 53 year old female arrives with complaints of chest pain since 8:30-9:00 this am. She was up and watching tv when the pain first started. It is a heaviness in her left chest and radiates to left shoulder and down arm to about her elbow. Nothing seems to make this pain better or worse. No fever or chills. No recent illness. TRAVEL OUTSIDE OF THE [place] IN LAST 30 DAYS: No - HPI Exacerbated by: Denies Relieved by: Denies - Related Data Allergies/Adverse Reactions: pentazocine lactate [From Talwin] Allergy (Intermediate, Verified 06/01/19 11:03) diphenhydramine HCl [From Benadryl] Allergy (Mild, Verified 06/01/19 11:03) metoclopramide HCl [From Reglan] Adverse Reaction (Intermediate, Verified 06/01/19 11:03) Histalet Forte Allergy (Severe, Uncoded 06/01/19 11:03) Home Medications: HTN, HYPOGLYCEMIA, HIGH CHOLESTROL, ASTHMA, BIPOLAR, Past Medical History - Social History Smoking Status: Never Smoker Frequency of alcohol use: None Drug Abuse: None Family History: CAD Patient has suicidal ideation: No Patient has homicidal ideation: No - Past Medical History Cardiac Medical History: Reports: Hx Hypertension Denies: Hx Pulmonary Embolism Pulmonary Medical History: Reports: Hx Asthma, Hx Bronchitis, Hx Pneumonia - received the pneumovax and influenza vaccine in April Denies: Hx Tuberculosis Neurological Medical History: Reports: Hx Migraine - awaiting an ablation, sees pain management in [place], on Dilaudid 4mg Endocrine Medical History: Reports: Hx Hypothyroidism GI Medical History: Reports: Hx Gastroesophageal Reflux Disease, Hx Ulcer - Stomach Musculoskeletal Medical History: Reports Hx Arthritis, Reports Hx Fibromyalgia Psychiatric Medical History: Reports: Hx Bipolar Disorder, Hx Depression - anxiety Past Surgical History: Reports: Hx Cardiac Catheterization - X 2, Hx Cholecystectomy, Hx Hysterectomy, Hx Orthopedic Surgery - r arm x 10, Hx Thyroid Surgery - thyroidectomy. Denies: Hx Pacemaker - Immunizations Immunizations up to date: Yes Hx Diphtheria, Pertussis, Tetanus Vaccination: Yes Hx Pneumococcal Vaccination: 02/28/10 Review of Systems - Review of Systems Constitutional: No symptoms reported EENT: No symptoms reported Cardiovascular: See HPI, Chest pain. denies: No symptoms reported Respiratory: No symptoms reported Gastrointestinal: No symptoms reported Genitourinary: No symptoms reported Female Genitourinary: No symptoms reported Musculoskeletal: No symptoms reported Skin: No symptoms reported Hematologic/Lymphatic: No symptoms reported Neurological/Psychological: No symptoms reported Physical Exam - Vital signs Vitals: Temp Pulse Resp BP Pulse Ox 97.5 F 58 L 16 141/77 H 95 06/01/19 11:03 06/01/19 11:03 06/01/19 11:03 06/01/19 11:03 06/01/19 11:03 Interpretation: Normal - General General appearance: Appears well, Alert - HEENT Head: Normocephalic, Atraumatic Eyes: Normal Pupils: PERRL - Respiratory Respiratory status: No respiratory distress Chest status: Nontender Breath sounds: Normal Chest palpation: Normal - Cardiovascular Rhythm: Regular Heart sounds: Normal auscultation Murmur: No - Abdominal Inspection: Normal Distension: No distension Bowel sounds: Normal Tenderness: Nontender Organomegaly: No organomegaly - Back Back: Normal, Nontender - Extremities General upper extremity: Normal inspection, Nontender, Normal color, Normal ROM, Normal temperature General lower extremity: Normal inspection, Nontender, Normal color, Normal ROM, Normal temperature, Normal weight bearing. No: Leslie's sign - Neurological Neuro grossly intact: Yes Cognition: Normal Orientation: AAOx4 Les Coma Scale Eye Opening: Spontaneous [place] Coma Scale Verbal: Oriented [place] Coma Scale Motor: Obeys Commands Les Coma Scale Total: 15 Speech: Normal Motor strength normal: LUE, RUE, LLE, RLE Sensory: Normal - Psychological Associated symptoms: Normal affect, Normal mood - Skin Skin Temperature: Warm Skin Moisture: Dry Skin Color: Normal Course - Re-evaluation Re-evalutation: 06/01/19 15:22 mdm 53 year old with chest pain consistently since this am. Started while awake at 830 and continues upon arrival. Better after being here a bit. 2 sets of enzymes are nl. No acute abnormality on cxr or ekg. Feel she is safe for follow up and likely functional study. I have discussed this with her and she expressed understanding. Normotensive here. No dissection likely with cxr and vital findings and pain better here. Addiotionally no leg pain or h/o clots and carlos with nl sat so while pe is in differential it is very unlilkely at this time. She has social support and will follow up. Pain management pt takes 4mg dilaudid po at a time as needed for low back pain. Will not send home with any pain medicines but will rec aspirin be taken until follow up. - Vital Signs Vital signs: Temp Pulse Resp BP Pulse Ox 97.5 F 58 L 15 136/86 H 98 06/01/19 11:03 06/01/19 11:03 06/01/19 14:31 06/01/19 14:31 06/01/19 14:31 - Laboratory Result Diagrams: 06/01/19 11:24 06/01/19 11:24 Laboratory results interpreted by me: 06/01/19 11:24 BUN 5 L Glucose 129 H - Diagnostic Test Radiology reviewed: Reports reviewed - EKG Interpretation by Me EKG shows normal: Sinus rhythm Rate: Bradycardia Rhythm: Other - Sinus Carlos nl axis no st elevation or depression repolarization ab my interpretation. Discharge - Discharge Clinical Impression: Chest pain Qualifiers: Chest pain type: unspecified Qualified Code(s): R07.9 - Chest pain, unspecified Hypertension Qualifiers: Hypertension type: unspecified Qualified Code(s): I10 - Essential (primary) hypertension Condition: Good Disposition: HOME, SELF-CARE Instructions: Chest Pain of Unclear Cause ([facility]), Oral Narcotic Medication ([facility]) Additional Instructions: See your doctor or the referral doctor in follow up. Rest. Please return here for any problems or any concerns. Call Dr. Kearns from cardiology for follow up. Take 2 baby aspirin daily until you see the engineering lecturer and can discuss this. Referrals: RICHELLE ROSAS PA [PHYSICIAN DOOR INSTALLER] - Follow up as needed MAYELA KEARNS MD [ACTIVE STAFF] - Follow up as needed
--- NOTE | 2019-06-01 14:28 | EKG REPORT ---
SEVERITY:- NORMAL ECG - SINUS RHYTHM : Confirmed by: Yadi Rosas MD 01-Jun-2019 14:28:24
[2019-06-01 15:59] VITALS: BP 122/75
== END 2019-06-01 16:01 | disposition home or self-care (01) ==
LOC: ER 10:49
DX: R07.9 Chest pain, unspecified (principal); E78.00 Pure hypercholesterolemia, unspecified; I10 Essential (primary) hypertension; Z90.49 Acquired absence of other specified parts of digestive tract
CPT/HCPCS: 36415; 71046; 80053; 84484; 85025; 93005; 93010; 99285

== ENCOUNTER 2019-06-29 12:36 | Emergency (ER) | payer OTHER ==
[2019-06-29 12:53] VITALS: BP 143/75
[2019-06-29] MEDS ORDERED: LIDOCAINE 5% (700 MG) TRANSDERMAL ADH..PATCH TP ONE (12:59)
[2019-06-29] MEDS ORDERED: KETOROLAC TROMETHAMINE 60 MG/2 ML SDV IM ONE (12:59)
[2019-06-29] MEDS ORDERED: ACETAMINOPHEN 325 MG TABLET PO ONE (12:59)
--- NOTE | 2019-06-29 13:04 | ER Document Report ---
HPI - HPI Time Seen by Provider: 06/29/19 12:53 Pain Level: 5 Notes: Patient is a 53-year-old female with a history of chronic back pain and under the care of pain management taking Dilaudid and Robaxin regularly presents complaining of acute on chronic back pain status post twist injury earlier this morning. Patient states that she stepped off of a step awkwardly and twisted her back. She did not fall or have any other traumatic injury. Patient states that the pain has flared up mostly on the left side of her lower back and radiates down into her legs. Patient states that she normally has pain in these areas with radiculitis. She is able to eat and drink without difficulty. She is urinating normally and having normal bowel movements. Bending and twisting make the pain worse. Denies any headache, fever, neck pain, URI, sore throat, chest pain, palpitations, syncope, cough, shortness of breath, wheeze, dyspnea, abdominal pain, nausea/vomiting/diarrhea, urinary retention, dysuria, hematuria, loss of control of bowel or bladder, numbness, saddle anesthesia, muscle paralysis/weakness, or rash. - ROS Systems Reviewed and Negative: Yes All other systems reviewed and negative - REPRODUCTIVE Reproductive: DENIES: : Past Medical History - Social History Smoking Status: Never Smoker Frequency of alcohol use: None Drug Abuse: None Family History: CAD Patient has suicidal ideation: No Patient has homicidal ideation: No - Past Medical History Cardiac Medical History: Reports: Hx Hypertension Denies: Hx Pulmonary Embolism Pulmonary Medical History: Reports: Hx Asthma, Hx Bronchitis, Hx Pneumonia - received the pneumovax and influenza vaccine in April Denies: Hx Tuberculosis Neurological Medical History: Reports: Hx Migraine - awaiting an ablation, sees pain management in [place], on Dilaudid 4mg Endocrine Medical History: Reports: Hx Hypothyroidism GI Medical History: Reports: Hx Gastroesophageal Reflux Disease, Hx Ulcer - Stomach Musculoskeletal Medical History: Reports Hx Arthritis, Reports Hx Fibromyalgia Psychiatric Medical History: Reports: Hx Bipolar Disorder, Hx Depression - anxiety Past Surgical History: Reports: Hx Cardiac Catheterization - X 2, Hx Cholecystectomy, Hx Hysterectomy, Hx Orthopedic Surgery - r arm x 10, Hx Thyroid Surgery - thyroidectomy. Denies: Hx Pacemaker - Immunizations Immunizations up to date: Yes Hx Diphtheria, Pertussis, Tetanus Vaccination: Yes Hx Pneumococcal Vaccination: 09/01/10 Vertical Provider Document - CONSTITUTIONAL Agree With Documented VS: Yes Notes: PHYSICAL EXAMINATION: GENERAL: Well-appearing, well-nourished and in no acute distress. LUNGS: Breath sounds clear to auscultation bilaterally and equal. No wheezes rales or rhonchi. HEART: Regular rate and rhythm without murmurs, rubs, gallops. ABDOMEN: Soft, nontender, nondistended abdomen. No guarding, no rebound. Normal bowel sounds present. No CVA tenderness bilaterally. Musculoskeletal: LE's b/l: FROM to passive/active. Strength 5+/5. No deficits noted. No bony tenderness of extremities. Back: LROM to passive/active to flexion/extension due to pain. Strength 5+/5. No vertebral point tenderness, stepoffs, or deformities. No other bony tenderness, erythema, swelling, or ecchymosis. SLR negative b/l. + Reproducible tenderness to the L-paraspinal mm b/l. Mild spasming. No SI jt tenderness. No foot drop Extremities: No cyanosis, clubbing, or edema b/l. Peripheral pulses 2+. Capillary refill less than 2 seconds. NEUROLOGICAL: Normal speech, slow but otherwise normal gait (>4 steps). Normal sensory, motor exams. Reflexes 2+ b/l. PSYCH: Normal mood, normal affect. SKIN: Warm, Dry, normal turgor, no rashes or lesions noted. - INFECTION CONTROL TRAVEL OUTSIDE OF THE [place] IN LAST 30 DAYS: No Course - Re-evaluation Re-evalutation: 06/29/19 13:02 Patient is an afebrile, well-hydrated, 53-year-old female who presents to the ED with acute on chronic low back pain. Vitals are acceptable. PE is otherwise unremarkable for any focal neurological deficits. Patient was given Toradol, Lidoderm patch, and Tylenol. Patient is already on Dilaudid and Robaxin at home. She has no significant tachycardia, tachypnea, or hypoxia. She is nontoxic-appearing and is tolerating p.o. without difficulties. There are no signs of infection. No other red flag symptoms noted. No other labs or imaging warranted at this time based on H&P. Low suspicion for any meningitis, fracture, expanding/ruptured AAA, cauda equina syndrome, epidural mass lesion/abscess, herniated disc causing severe spinal stenosis, or other systemic infection at this time. Patient is aware that this condition can change from initial presentation and that she needs monitor symptoms closely for any acute changes. I will send him home with a prescription for lidoderm. Conservative measures otherwise for symptoms. Recheck with your PCM in 3-5 days. Call your pain management provider after the holiday. Return to the ED with any worsening/concerning symptoms otherwise as reviewed discharge. Patient is in agreement. - Vital Signs Vital signs: Temp Pulse Resp BP Pulse Ox 98.1 F 99 20 143/75 H 94 06/29/19 12:53 06/29/19 12:53 06/29/19 12:53 06/29/19 12:53 06/29/19 12:53 Discharge - Discharge Clinical Impression: Acute exacerbation of chronic low back pain Condition: Stable Disposition: HOME, SELF-CARE Instructions: Low Back Pain ([facility]) Additional Instructions: Rest, Ice Tylenol/ibuprofen as needed Light stretches daily Strength exercises as able Moist heat and massage may help F/u with your PCP in 3-5 days for a recheck Consider consult(s) with Orthopedics/physical therapy for ongoing/worsening symptoms Call your pain provider after the holiday Return to the ED with any worsening symptoms and/or development of fever, headache, chest pain, palpitations, syncope, shortness of breath, trouble breathing, abdominal pain, n/v/d, blood in stool/urine, loss of control of bowel/bladder, urinary retention, muscle weakness/paralysis, saddle anesthesia, numbness/tingling, or other worsening symptoms that are concerning to you. Prescriptions: Lidocaine [Lidoderm 5% (700 mg) Transdermal Patch] 1 patch TP DAILY #10 adh..patch Forms: Elevated Blood Pressure Referrals: BRIANDA QUIJANO MD [ACTIVE STAFF] - Follow up as needed
== END 2019-06-29 13:43 | disposition home or self-care (01) ==
LOC: ER 12:36
DX: M54.5 Low back pain (principal); M54.9 Dorsalgia, unspecified; G89.29 Other chronic pain; X50.1XXA Overexertion from prolonged static or awkward postures, initial encounter; M79.604 Pain in right leg; M79.605 Pain in left leg; I10 Essential (primary) hypertension; J45.909 Unspecified asthma, uncomplicated
CPT/HCPCS: 99283; 96372; J1885

== ENCOUNTER 2019-09-14 15:27 | Emergency (ER) | payer OTHER ==
[2019-09-14] MEDS ORDERED: KETOROLAC TROMETHAMINE INJ/PF 30 MG/1 ML SDV IV ONE (16:04)
[2019-09-14] MEDS ORDERED: NORMAL SALINE 1000 ML 1,000 ML IV ONE (16:05)
--- NOTE | 2019-09-14 16:06 | ER Document Report ---
ED Medical Screen (RME) - General Chief Complaint: Headache >24 hrs old Stated Complaint: MIGRAINE/NECK PAIN Time Seen by Provider: 09/14/19 15:58 Primary Care Provider: ELIZABETH STRANGE MD [Primary Care Provider] - Follow up as needed Mode of Arrival: Ambulatory Information source: Patient Notes: Patient is a 54-year-old female with history of migraines presenting to the emergency department with global headache that began yesterday. Patient reports this is the worst headache of her life. She states this feels much different than her typical migraines. She is taking all of her migraine medications at home without relief. No focal neurological deficits noted. Patient alert, oriented, answering all questions appropriately. I have greeted and performed a rapid initial assessment of this patient. A comprehensive ED assessment and evaluation of the patient, analysis of test results and completion of the medical decision making process will be conducted by additional ED providers. I have specifically instructed the patient or family members with the patient to immediately return to any nursing staff should anything change in the patient's condition or with their chief complaint. TRAVEL OUTSIDE OF THE [place] IN LAST 30 DAYS: No - Related Data Allergies/Adverse Reactions: pentazocine lactate [From Talwin] Allergy (Intermediate, Verified 06/01/19 11:03) diphenhydramine HCl [From Benadryl] Allergy (Mild, Verified 06/01/19 11:03) metoclopramide HCl [From Reglan] Adverse Reaction (Intermediate, Verified 06/01/19 11:03) Histalet Forte Allergy (Severe, Uncoded 06/01/19 11:03) Home Medications: Emgality. Dilaudid Past Medical History - Past Medical History Cardiac Medical History: Reports: Hx Hypertension Denies: Hx Pulmonary Embolism Pulmonary Medical History: Reports: Hx Asthma, Hx Bronchitis, Hx Pneumonia - received the pneumovax and influenza vaccine in April Denies: Hx Tuberculosis Neurological Medical History: Reports: Hx Migraine - awaiting an ablation, sees pain management in [place], on Dilaudid 4mg Endocrine Medical History: Reports: Hx Hypothyroidism GI Medical History: Reports: Hx Gastroesophageal Reflux Disease, Hx Ulcer - Stomach Musculoskeltal Medical History: Reports Hx Arthritis, Reports Hx Fibromyalgia Psychiatric Medical History: Reports: Hx Bipolar Disorder, Hx Depression - anxiety Past Surgical History: Reports: Hx Cardiac Catheterization - X 2, Hx Cholecystectomy, Hx Hysterectomy, Hx Orthopedic Surgery - r arm x 10, Hx Thyroid Surgery - thyroidectomy. Denies: Hx Pacemaker - Immunizations Immunizations up to date: Yes Hx Diphtheria, Pertussis, Tetanus Vaccination: Yes Physical Exam - Vital signs Vitals: Temp Pulse Resp BP Pulse Ox 97.9 F 89 18 117/68 94 09/14/19 15:53 09/14/19 15:53 09/14/19 15:53 09/14/19 15:53 09/14/19 15:53 Course - Vital Signs Vital signs: Temp Pulse Resp BP Pulse Ox 97.9 F 89 18 117/68 94 09/14/19 15:53 09/14/19 15:53 09/14/19 15:53 09/14/19 15:53 09/14/19 15:53 Doctor's Discharge - Discharge Referrals: ELIZABETH STRANGE MD [Primary Care Provider] - Follow up as needed
--- NOTE | 2019-09-14 16:42 | RADIOLOGY REPORT (SQ) ---
EXAM DESCRIPTION: CT HEAD WITHOUT COMPLETED DATE/TIME: 09/14/2019 4:26 pm REASON FOR STUDY: HEADACHE COMPARISON: CT brain 11/30/2013, 08/24/2016 TECHNIQUE: Axial images acquired through the brain without intravenous contrast. Images reviewed wi th bone, brain and subdural windows. Additional sagittal and coronal reconstructions were generated. Images stored on PACS. All CT scanners at this facility use dose modulation, iterative reconstruction, and/or weight based d osing when appropriate to reduce radiation dose to as low as reasonably achievable (ALARA). [facility]: Dose Right [facility]: CareDose [facility]: Dose Right [facility]: Teradose 4D [facility]: Smart Qumas RADIATION DOSE: CT Rad equipment meets quality standard of care and radiation dose reduction techniq ues were employed. CTDIvol: 53.2 mGy. DLP: 964 mGy-cm. mGy. LIMITATIONS: None. FINDINGS: VENTRICLES: Normal size and contour. CEREBRUM: No masses. No hemorrhage. No midline shift. No evidence for acute infarction. Normal gra y/white matter differentiation. No areas of low density in the white matter. CEREBELLUM: No masses. No hemorrhage. No alteration of density. No evidence for acute infarction. EXTRAAXIAL SPACES: No fluid collections. No masses. ORBITS AND GLOBE: No intra- or extraconal masses. Normal contour of globes with bilateral lens impla nts CALVARIUM: No fracture. PARANASAL SINUSES: No fluid or mucosal thickening. SOFT TISSUES: No mass or hematoma. OTHER: No other significant finding. IMPRESSION: NORMAL BRAIN CT WITHOUT CONTRAST. EVIDENCE OF ACUTE STROKE: NO. COMMENT: Quality ID # [id number]: Final reports with documentation of one or more dose reduction techniques (e.g., Automated exposure control, adjustment of the mA and/or kV according to patient size, use of iterative reconstruction technique) TECHNICAL DOCUMENTATION: JOB ID: [id number] 2010 [employer]- All Rights Reserved Reading location - IP/workstation name: [id number]
[2019-09-14] MEDS ORDERED: KETOROLAC TROMETHAMINE INJ/PF 30 MG/1 ML SDV ONE (18:25)
[2019-09-14] MEDS ORDERED: PROCHLORPERAZINE EDISYLATE INJ 10 MG/2 ML VIAL IV ONE (19:40)
[2019-09-14 20:12] LABS: ABSOLUTE EOSINOPHILS # (AUTO) 0.2 10^3/uL (0.0-0.6); ABSOLUTE LYMPHOCYTES (AUTO) 2.4 10^3/uL (0.5-4.7); ABSOLUTE MONOCYTES (AUTO) 0.7 10^3/uL (0.1-1.4); ABSOLUTE NEUT (AUTO) 3.8 10^3/uL (1.7-8.2); BASOPHILS % (AUTO) 0.7 % (0-2); EOSINOPHILS % (AUTO) 2.4 % (0-6); HEMATOCRIT 37.7 % (36.0-47.0); HEMOGLOBIN 13.3 g/dL (12.0-15.5); LYMPHOCYTES % (AUTO) 33.6 % (13-45); MEAN CORPUSCULAR HEMOGLOBIN 33.1 pg (27.0-33.4); MEAN CORPUSCULAR HGB CONC 35.2 g/dL (32.0-36.0); MEAN CORPUSCULAR VOLUME 94 fl (80-97); MONOCYTES % (AUTO) 10.3 % (3-13); PLATELET COUNT 164 10^3/uL (150-450); TOTAL CELLS COUNTED % (AUTO) 100 %; WHITE BLOOD COUNT 7.1 10^3/uL (4.0-10.5)
[2019-09-14 20:26] LABS: ALBUMIN 4.1 g/dL (3.5-5.0); ALKALINE PHOSPHATASE 54 U/L (38-126); ANION GAP 5 (5-19); ASPARTATE AMINO TRANSFERASE 31 U/L (14-36); BILIRUBIN,TOTAL 0.7 mg/dL (0.2-1.3); BLOOD UREA NITROGEN 12 mg/dL (7-20); CALCIUM 8.5 mg/dL (8.4-10.2); CARBON DIOXIDE 31 mmol/L (22-30); CHLORIDE 103 mmol/L (98-107); GLUCOSE 90 mg/dL (75-110); POTASSIUM 4.9 mmol/L (3.6-5.0)
[2019-09-14] MEDS ORDERED: HYDROMORPHONE HCL INJ/PF 2 MG/ML AMPULE IV ONE (22:03)
[2019-09-14] MEDS ORDERED: METOCLOPRAMIDE HCL INJ/PF 10 MG/2 ML SDV IV ONE (22:04)
[2019-09-15 02:24] VITALS: BP 145/86
== END 2019-09-15 01:05 | disposition home or self-care (01) ==
LOC: ER 15:27
DX: R51 Headache (principal); M54.2 Cervicalgia; I10 Essential (primary) hypertension; E03.9 Hypothyroidism, unspecified; Z90.49 Acquired absence of other specified parts of digestive tract; Z90.710 Acquired absence of both cervix and uterus
CPT/HCPCS: 99284; 96361; 96374; 96375; 36415; 85025; 80053; 70450; J1885; J0780; J7030

== ENCOUNTER 2019-10-26 15:58 | Emergency (ER) | payer OTHER ==
[2019-10-26] MEDS ORDERED: KETOROLAC TROMETHAMINE 60 MG/2 ML SDV IM ONE (19:15)
--- NOTE | 2019-10-26 19:21 | ER Document Report ---
ED General - General Stated Complaint: BACK PAIN Time Seen by Provider: 10/26/19 17:01 Primary Care Provider: ERIC PRIDE MD [Primary Care Provider] - Follow up as needed TRAVEL OUTSIDE OF THE U.S. IN LAST 30 DAYS: No - HPI Notes: Chief complaint: Low back pain HPI: 54-year-old female followed by [place] [facility] previously taking 4 mg of Dilaudid 4 times daily was taken off this medication last week and switch to some type of a synthetic narcotic administered as a buccal film. She says this is not adequately controlling her pain. She also says that she slipped in her kitchen while mopping 2 days ago and fell and that her pain in lumbar area has been considerably worse since then. She denies any radicular symptoms. She denies any bowel bladder dysfunction. - Related Data Allergies/Adverse Reactions: pentazocine lactate [From Talwin] Allergy (Intermediate, Verified 06/01/19 11:03) diphenhydramine HCl [From Benadryl] Allergy (Mild, Verified 06/01/19 11:03) metoclopramide HCl [From Reglan] Adverse Reaction (Intermediate, Verified 06/01/19 11:03) Histalet Forte Allergy (Severe, Uncoded 06/01/19 11:03) Past Medical History - General Information source: Patient, [facility] Records - Social History Smoking Status: Unknown if Ever Smoked Family History: CAD - Past Medical History Cardiac Medical History: Reports: Hx Hypertension Denies: Hx Pulmonary Embolism Pulmonary Medical History: Reports: Hx Asthma, Hx Bronchitis, Hx Pneumonia - received the pneumovax and influenza vaccine in April Denies: Hx Tuberculosis Neurological Medical History: Reports: Hx Migraine - awaiting an ablation, sees pain management in [place], on Dilaudid 4mg Endocrine Medical History: Reports: Hx Hypothyroidism GI Medical History: Reports: Hx Gastroesophageal Reflux Disease, Hx Ulcer - Stomach Musculoskeletal Medical History: Reports Hx Arthritis, Reports Hx Fibromyalgia Psychiatric Medical History: Reports: Hx Bipolar Disorder, Hx Depression - anxiety Past Surgical History: Reports: Hx Cardiac Catheterization - X 2, Hx Cholecystectomy, Hx Hysterectomy, Hx Orthopedic Surgery - r arm x 10, Hx Thyroid Surgery - thyroidectomy. Denies: Hx Pacemaker - Immunizations Immunizations up to date: Yes Hx Diphtheria, Pertussis, Tetanus Vaccination: Yes Hx Pneumococcal Vaccination: 02/28/10 Review of Systems - Review of Systems Notes: Constitutional: Negative for fever. HENT: Negative for sore throat. Eyes: Negative for visual changes. Cardiovascular: Negative for chest pain. Respiratory: Negative for shortness of breath. Gastrointestinal: Negative for abdominal pain, vomiting or diarrhea. Genitourinary: Negative for dysuria. Musculoskeletal: As per HPI. Skin: Negative for rash. Neurological: Negative for headaches, weakness or numbness. 10 point ROS negative except as marked above and in HPI. Physical Exam - Vital signs Vitals: Temp 97.8 F 10/26/19 15:59 - Notes Notes: GENERAL: Obese middle-aged female who appears moderately uncomfortable. SKIN: Good turgor no rashes. HEAD: Normocephalic atraumatic. EYES: PERRLA. EOMI. Conjunctivae and sclerae clear. EARS: CANALS AND TMS CLEAR. NOSE: CLEAR. MOUTH: Moist mucosa. Good dentition. No stridor or edema. No drooling. NECK: Supple. No masses or thyromegaly. No adenopathy. Carotids 2+ without bruits. No JVD. BACK: Moderate tenderness lumbar area. No visible ecchymoses. No crepitus. No step-off.. CHEST: Respirations unlabored. Breath sounds clear and symmetrical. HEART: Regular rhythm. No murmur gallop or rub. ABDOMEN: Obese. Soft nontender without masses, organomegaly or rebound. Bowel sounds normally active. No bruits. GENITALIA: Deferred. EXTREMITIES: No edema. No calf tenderness. Cap refill less than 1.5 seconds. Dorsalis pedis and posterior tibial pulses 3+ and symmetrical. NEUROLOGICAL: GCS 15. Alert and oriented x3. Fluent speech. Cranial nerves II through XII intact. Sensorimotor and cerebellar normal. Normal tone. PSYCHIATRIC: Flat affect. Course - Re-evaluation Re-evalutation: 10/26/19 19:20 Patient will receive Toradol IM. Plain films of lumbar spine requested. 10/26/19 19:54 I have reviewed the lumbar spine films and I do not see any obvious acute fracture. I am going to give her 2 mg of Dilaudid IM as a one-time dose and she has follow-up visit with her pain management doctor tomorrow morning. - Vital Signs Vital signs: Temp Pulse Resp BP Pulse Ox 98.3 F 78 16 187/105 H 95 10/26/19 16:41 10/26/19 16:41 10/26/19 16:41 10/26/19 16:41 10/26/19 16:41 Discharge - Discharge Clinical Impression: Chronic pain syndrome Acute low back pain Qualifiers: Back pain laterality: midline Sciatica presence: without sciatica Qualified Code(s): M54.5 - Low back pain Condition: Stable Disposition: HOME, SELF-CARE Referrals: ERIC PRIDE MD [Primary Care Provider] - Follow up as needed
[2019-10-26] MEDS ORDERED: HYDROMORPHONE HCL INJ/PF 2 MG/ML AMPULE IM ONE (19:53)
--- NOTE | 2019-10-26 19:55 | RADIOLOGY REPORT (SQ) ---
EXAM DESCRIPTION: L SPINE WHOLE IMAGES COMPLETED DATE/TIME: 10/26/2019 7:39 pm REASON FOR STUDY: fall COMPARISON: Lumbar spine films 06/08/2008 NUMBER OF VIEWS: Five views including obliques. TECHNIQUE: AP, lateral, oblique, and sacral radiographic images acquired of the lumbar spine. LIMITATIONS: None. FINDINGS: MINERALIZATION: Normal. SEGMENTATION: Normal. No transitional anatomy. ALIGNMENT: Normal. VERTEBRAE: Maintained height. No fracture or worrisome bone lesion. DISCS: Preserved height. No significant osteophytes or end plate irregularity. POSTERIOR ELEMENTS: Diffuse lumbar facet arthropathy present, most pronounced from L2-3 through L5-S1 . HARDWARE: None in the spine. PARASPINAL SOFT TISSUES: Normal. PELVIS: Mild sclerosis bilateral SI joints OTHER: No other significant finding. IMPRESSION: Diffuse lumbar facet arthropathy. Mild sclerosis bilateral SI joints. No acute fracture or malalignment TECHNICAL DOCUMENTATION: JOB ID: [id number] 2010 [employer]- All Rights Reserved Reading location - IP/workstation name: [id number]
[2019-10-26 20:46] VITALS: BP 145/82
== END 2019-10-26 20:45 | disposition home or self-care (01) ==
LOC: ER 15:58
DX: M54.5 Low back pain (principal); G89.4 Chronic pain syndrome; W01.0XXA Fall on same level from slipping, tripping and stumbling without subsequent striking against object, initial encounter; Y92.000 Kitchen of unspecified non-institutional (private) residence as the place of occurrence of the external cause; Z88.8 Allergy status to other drugs, medicaments and biological substances; I10 Essential (primary) hypertension; J45.909 Unspecified asthma, uncomplicated; Z79.899 Other long term (current) drug therapy
CPT/HCPCS: 99283; 96372; 72110; J1885; J1170

== ENCOUNTER 2019-12-05 16:14 | Emergency (ER) | payer OTHER ==
[2019-12-05] MEDS ORDERED: KETOROLAC TROMETHAMINE INJ/PF 30 MG/1 ML SDV IV ONE (18:29)
[2019-12-05 18:38] LABS: ABSOLUTE BASOPHILS # (AUTO) 0.1 10^3/uL (0.0-0.2); ABSOLUTE EOSINOPHILS # (AUTO) 0.1 10^3/uL (0.0-0.6); ABSOLUTE LYMPHOCYTES (AUTO) 1.8 10^3/uL (0.5-4.7); ABSOLUTE MONOCYTES (AUTO) 0.7 10^3/uL (0.1-1.4); ABSOLUTE NEUT (AUTO) 5.1 10^3/uL (1.7-8.2); BASOPHILS % (AUTO) 0.7 % (0-2); EOSINOPHILS % (AUTO) 1.4 % (0-6); HEMATOCRIT 40.4 % (36.0-47.0); HEMOGLOBIN 13.9 g/dL (12.0-15.5); LYMPHOCYTES % (AUTO) 23.3 % (13-45); MEAN CORPUSCULAR HEMOGLOBIN 32.7 pg (27.0-33.4); MEAN CORPUSCULAR HGB CONC 34.5 g/dL (32.0-36.0); MEAN CORPUSCULAR VOLUME 95 fl (80-97); MONOCYTES % (AUTO) 9.1 % (3-13); PLATELET COUNT 241 10^3/uL (150-450); RED BLOOD COUNT 4.26 10^6/uL (3.72-5.28); RED CELL DISTRIBUTION WIDTH 14.2 % (11.5-14.0); SEGMENTED NEUTROPHILS % (AUTO) 65.5 % (42-78); TOTAL CELLS COUNTED % (AUTO) 100 %; WHITE BLOOD COUNT 7.7 10^3/uL (4.0-10.5)
--- NOTE | 2019-12-05 18:40 | ER Document Report ---
ED General - General Chief Complaint: Shortness Of Breath Stated Complaint: DIFFICULTY BREATHING Time Seen by Provider: 12/05/19 16:17 Primary Care Provider: ERIC PRIDE MD [Primary Care Provider] - Follow up as needed TRAVEL OUTSIDE OF THE U.S. IN LAST 30 DAYS: No - HPI Notes: Chief complaint: Chest pain and nonproductive cough HPI: 54-year-old female with longstanding history of chronic asthma reports increasing dry cough over the past 5 to 7 days. No sputum production. No hemoptysis. No fever. Slight increase in wheezing. This is associated with pleuritic pain. She describes this as sharp along the left costal margin with deep inspiration. She denies any trauma. She denies any known exposure to COVID-19 virus. She denies any travel away from home. Patient states that she has had similar symptoms in the past and at that time was diagnosed with pleurisy. Patient denies any personal or family history of thromboembolic disease. She denies any lower extremity edema. She denies any recent trauma or immobilization. She is not on any type of hormone supplementation. Patient has been using metered-dose inhaler at home. She does not take steroids at any time because of her history of severe glaucoma. Patient is a non-smoker. She denies vaping. Patient has a history of chronic pain syndrome related to a back condition and is taking Dilaudid and using transdermal patches. PERC SCORE (HADCLOTS) H Hormone administration A Age>50 D NO DVT/PE previously C no hemoptysis L no leg swelling unilaterally O O2 sat greater than 95% T Tachycardia present S no surgery/Trauma recently - Related Data Allergies/Adverse Reactions: pentazocine lactate [From Talwin] Allergy (Intermediate, Verified 10/26/19 19:58) diphenhydramine HCl [From Benadryl] Allergy (Mild, Verified 10/26/19 19:58) metoclopramide HCl [From Reglan] Adverse Reaction (Intermediate, Verified 10/26/19 19:58) Histalet Forte Allergy (Severe, Uncoded 10/26/19 19:58) Past Medical History - General Information source: Patient, [facility] Records - Social History Smoking Status: Never Smoker Frequency of alcohol use: None Drug Abuse: None Family History: CAD Patient has homicidal ideation: No - Past Medical History Cardiac Medical History: Reports: Hx Hypertension Denies: Hx Pulmonary Embolism Pulmonary Medical History: Reports: Hx Asthma, Hx Bronchitis, Hx Pneumonia - received the pneumovax and influenza vaccine in April Denies: Hx Tuberculosis Neurological Medical History: Reports: Hx Migraine - awaiting an ablation, sees pain management in [place], on Dilaudid 4mg Endocrine Medical History: Reports: Hx Hypothyroidism GI Medical History: Reports: Hx Gastroesophageal Reflux Disease, Hx Ulcer - Stomach Musculoskeletal Medical History: Reports Hx Arthritis, Reports Hx Fibromyalgia Psychiatric Medical History: Reports: Hx Bipolar Disorder, Hx Depression - anxiety Past Surgical History: Reports: Hx Cardiac Catheterization - X 2, Hx Cholecystectomy, Hx Hysterectomy, Hx Orthopedic Surgery - r arm x 10, Hx Thyroid Surgery - thyroidectomy. Denies: Hx Pacemaker - Immunizations Immunizations up to date: Yes Hx Diphtheria, Pertussis, Tetanus Vaccination: Yes Hx Pneumococcal Vaccination: 02/28/10 Review of Systems - Review of Systems Notes: Constitutional: Negative for fever. HENT: Negative for sore throat. Eyes: Negative for visual changes. Cardiovascular: As per HPI. Respiratory: As per HPI. Gastrointestinal: Negative for abdominal pain, vomiting or diarrhea. Genitourinary: Negative for dysuria. Musculoskeletal: Chronic back pain. Skin: Negative for rash. Neurological: Negative for headaches, weakness or numbness. 10 point ROS negative except as marked above and in HPI. Physical Exam - Vital signs Vitals: Temp 98.0 F 12/05/19 16:50 - Notes Notes: Remote Exam Using Telemedicine System GENERAL: Obese middle-aged female appearing in no acute distress. SKIN: no rashes. HEAD: Normocephalic atraumatic. EYES: PERRL. EOMI. Conjunctivae and sclerae clear. NOSE: CLEAR. MOUTH: Moist mucosa. Good dentition. No stridor or edema. No drooling. NECK: Full ROM. No visible masses or thyromegaly. No JVD. BACK: Symmetrical. CHEST: Respirations unlabored. Mild splinting on the left. ABDOMEN: Obese. Non-distended. GENITALIA: Deferred. EXTREMITIES: No edema. NEUROLOGICAL: GCS 15. Alert and oriented x3. Normal gait. Fluent speech. Cranial nerves II through XII intact. Motor and cerebellar normal. PSYCHIATRIC: Appropriate affect. Course - Re-evaluation Re-evalutation: 12/05/19 20:51 Clinically I think this lady is likely to have a pleuritis but we wanted to be sure she did not have a PE. We did a d-dimer initially was negative. Chest x- ray is normal. Troponin is normal. EKG showed no acute changes. We discussed options for treatment with patient. We agreed to a short trial of steroids although she has been told long-term steroids would be problematic with her glaucoma. I asked her to call her child development specialist in the morning and let him know that were doing short-term steroids and discussed this with him as well. I am giving her 125 mg Solu-Medrol IV here and I will put her on 3 days of pr ednisone at home. I am also going to place her on low-dose indomethacin 25 mg 3 times daily. She can follow-up with her primary care physician. She indicates that her current symptoms are more or less identical to when she was previously diagnosed with pleuritis several years ago. Patient expresses understanding of current findings and recommendations and agreement with treatment plan. - Vital Signs Vital signs: Temp Pulse Resp BP Pulse Ox 98.0 F 94 19 153/93 H 93 12/05/19 16:53 12/05/19 16:53 12/05/19 16:53 12/05/19 16:53 12/05/19 16:53 - Laboratory Result Diagrams: 12/05/19 18:02 12/05/19 18:02 Laboratory results interpreted by me: 12/05/19 12/05/19 18:02 18:02 RDW 14.2 H Creatinine 0.46 L Discharge - Discharge Clinical Impression: Pleuritis, Asthma Condition: Stable Disposition: HOME, SELF-CARE Additional Instructions: Call your media theorist and author of tomorrow regarding discussion of treatment with steroids. Take prescribed medications as directed. Discontinue indomethacin if you have severe abdominal pain or vomiting. Follow-up with your primary care physician next 2 to 3 days. Prescriptions: Prednisone [Deltasone 20 mg Tablet] 2 tab PO DAILY 5 Days tablet Indomethacin 25 mg PO TID 7 Days #21 capsule Referrals: ERIC PRIDE MD [Primary Care Provider] - Follow up as needed
[2019-12-05 18:43] LABS: ALBUMIN 4.2 g/dL (3.5-5.0); ALKALINE PHOSPHATASE 92 U/L (38-126); ANION GAP 5 (5-19); ASPARTATE AMINO TRANSFERASE 30 U/L (14-36); BILIRUBIN,TOTAL 0.4 mg/dL (0.2-1.3); BLOOD UREA NITROGEN 8 mg/dL (7-20); CALCIUM 9.1 mg/dL (8.4-10.2); CARBON DIOXIDE 29 mmol/L (22-30); CHLORIDE 105 mmol/L (98-107); GLUCOSE 77 mg/dL (75-110); POTASSIUM 3.8 mmol/L (3.6-5.0); TOTAL PROTEIN 7.2 g/dL (6.3-8.2)
--- NOTE | 2019-12-05 19:02 | EKG REPORT ---
SEVERITY:- ABNORMAL ECG - SINUS RHYTHM LEFT VENTRICULAR HYPERTROPHY : Confirmed by: Indigo Alcantara 05-Dec-2019 19:01:48
--- NOTE | 2019-12-05 19:34 | RADIOLOGY REPORT (SQ) ---
EXAM DESCRIPTION: CHEST SINGLE VIEW IMAGES COMPLETED DATE/TIME: 12/05/2019 7:14 pm REASON FOR STUDY: CP, Cough COMPARISON: 06/01/2019 TECHNIQUE: Single frontal radiographic view of the chest acquired. NUMBER OF VIEWS: One view. LIMITATIONS: None. FINDINGS: LUNGS AND PLEURA: No pneumothorax. No consolidation or pleural effusion. MEDIASTINUM AND HILAR STRUCTURES: Stable. HEART AND VASCULAR STRUCTURES: Stable. BONES: No acute findings. HARDWARE: None in the chest. OTHER: No other significant finding. IMPRESSION: NO ACUTE FINDINGS. TECHNICAL DOCUMENTATION: JOB ID: [id number] 2010 [employer]- All Rights Reserved Reading location - IP/workstation name: [email or web address]
[2019-12-05] MEDS ORDERED: METHYLPREDNISOLONE INJ 125 MG/2 ML SDV IV ONE (20:51)
[2019-12-05 21:07] VITALS: BP 145/82
== END 2019-12-05 21:07 | disposition home or self-care (01) ==
LOC: ER 16:14
DX: R09.1 Pleurisy (principal); J45.909 Unspecified asthma, uncomplicated; R05 Cough; R07.81 Pleurodynia; R00.0 Tachycardia, unspecified; H40.9 Unspecified glaucoma; E66.9 Obesity, unspecified; I10 Essential (primary) hypertension; M54.9 Dorsalgia, unspecified; G89.4 Chronic pain syndrome; Z79.891 Long term (current) use of opiate analgesic; Z79.899 Other long term (current) drug therapy; Z87.01 Personal history of pneumonia (recurrent); Z88.6 Allergy status to analgesic agent; Z88.5 Allergy status to narcotic agent; Z88.8 Allergy status to other drugs, medicaments and biological substances; Z82.49 Family history of ischemic heart disease and other diseases of the circulatory system
CPT/HCPCS: 93005; 99285; 96374; 96375; 36415; 83735; 85025; 80053; 84484; 85379; 71045; 93010; J2930; J1885

== ENCOUNTER 2020-03-26 13:40 | Emergency (ER) | payer OTHER ==
[2020-03-26] MEDS ORDERED: ALBUTEROL SULFATE 0.083% NEB 2.5 MG/3 ML AMPUL NEB ONE (14:49)
[2020-03-26] MEDS ORDERED: OXYCODONE-ACETAMINOPHEN 5-325 MG TABLET PO ONE (14:49)
[2020-03-26] MEDS ORDERED: DEXAMETHASONE SOD PHOS INJ 10 MG/1 ML VIAL IM ONE (14:49)
--- NOTE | 2020-03-26 14:53 | ER Document Report ---
ED General - General Chief Complaint: Cough Stated Complaint: COUGH Time Seen by Provider: 03/26/20 14:32 Primary Care Provider: ERIC PRIDE MD [Primary Care Provider] - Follow up as needed Mode of Arrival: Ambulatory Information source: Patient Notes: 54-year-old female coming in today with 3 to 4 days of sharp chest pain. She has a history of asthma and feels like she is more short of breath than normal. She gets extremely short of breath with minimal exertion. She does not have any history of coronary artery disease. She does state that she feels weak and achy at the same time. States her symptoms are consistent with those that she gets when she has an asthma flareup. TRAVEL OUTSIDE OF THE [place] IN LAST 30 DAYS: No - Related Data Allergies/Adverse Reactions: pentazocine lactate [From Talwin] Allergy (Intermediate, Verified 10/26/19 19:58) diphenhydramine HCl [From Benadryl] Allergy (Mild, Verified 10/26/19 19:58) metoclopramide HCl [From Reglan] Adverse Reaction (Intermediate, Verified 10/26/19 19:58) Histalet Forte Allergy (Severe, Uncoded 10/26/19 19:58) Past Medical History - Social History Smoking Status: Former Smoker Family History: CAD Patient has homicidal ideation: No - Past Medical History Cardiac Medical History: Reports: Hx Hypertension Denies: Hx Pulmonary Embolism Pulmonary Medical History: Reports: Hx Asthma, Hx Bronchitis, Hx Pneumonia - received the pneumovax and influenza vaccine in April Denies: Hx Tuberculosis Neurological Medical History: Reports: Hx Migraine - awaiting an ablation, sees pain management in [place], on Dilaudid 4mg Endocrine Medical History: Reports: Hx Hypothyroidism GI Medical History: Reports: Hx Gastroesophageal Reflux Disease, Hx Ulcer - Sto mach Musculoskeletal Medical History: Reports Hx Arthritis, Reports Hx Fibromyalgia Psychiatric Medical History: Reports: Hx Bipolar Disorder, Hx Depression - anxiety Past Surgical History: Reports: Hx Cardiac Catheterization - X 2, Hx Cholecystectomy, Hx Hysterectomy, Hx Orthopedic Surgery - r arm x 10, Hx Thyroid Surgery - thyroidectomy. Denies: Hx Pacemaker - Immunizations Immunizations up to date: Yes Hx Diphtheria, Pertussis, Tetanus Vaccination: Yes Hx Pneumococcal Vaccination: 02/28/10 Review of Systems - Review of Systems Notes: Constitutional: No fevers. No chills. Positive for weakness EENT: No eye redness. No eye pain. No ear pain. No sore throat. Cardiovascular: Positive pleuritic chest pain. No palpitations. Respiratory: No cough. +shortness of breath. No respiratory distress. Gastrointestinal: No abdominal pain. No nausea, vomiting, or diarrhea. Genitourinary: Atraumatic. No lesions. No pain. No discharge. Musculoskeletal: Atraumatic. No swelling. No deformities. Skin: No rash or lesions. Lymphatic: No swollen lymph nodes. Neurologic: No headache. No syncope. Psychiatric: No suicidal or homicidal ideation. Physical Exam - Vital signs Vitals: Temp Pulse Resp BP Pulse Ox 98.4 F 84 20 137/87 H 95 03/26/20 13:47 03/26/20 13:47 03/26/20 13:47 03/26/20 13:47 03/26/20 13:47 - Notes Notes: General: Well-developed, well-nourished. In no acute distress. Non-toxic appearing. Cardiac: Well-perfused. Regular rate and rhythm. No murmurs, rubs, or gallops. Pulmonary: No respiratory distress. No cyanosis. Bilateral lung newton are diminished. Abdominal: Non-distended. Non-rigid. Bowels sounds are present in all four quadrants. No guarding or rebound. HEENT: Head is atraumatic. Conjunctivae not reddened. No tearing. PERRL. EOMI. Orbits atraumatic. No periorbital swelling or erythema. Oropharynx is without erythema, swelling, or exudates. Neck: Supple. No adenopathy. No meningismus. Dermatologic: Warm with good turgor. No rash. Atraumatic. Chest: Atraumatic. No chest wall tenderness to palpation. Musculoskeletal: Moves all extremities well. No range of motion deficits. no muscular or joint tenderness. No paraspinal muscle tenderness. no midline spinal tenderness or step-off. Genitourinary: Examination deferred Neurologic: No gross neurologic deficits. Psychiatric: Normal mood. Course - Re-evaluation Re-evalutation: 03/26/20 14:53 Most likely an asthma exacerbation but given her age and obesity and history of chest pain will also get some basic cardiac work-up. 03/26/20 17:41 Patient is developed a transaminitis insert previous visit. She is always had normal transaminases and today's levels are about 10 times the normal range. Patient denies alcohol abuse. Denies Tylenol abuse. 03/26/20 18:04 Patient feeling better after breathing treatment. Coronavirus screening is still pending. She does not have a pneumonia on x-ray. She does have a history of asthma. Most likely having asthma exacerbation. She also has an incidental transaminitis. She told me that she has a very good primary care doctor who can follow her up with this. I had offered to right upper quadrant ultrasound which she has declined in favor of having her doctor order it. We will put her on some dexamethasone for the next 5 days for her asthma exacerbation and have her continue to use her breathing treatments as needed. - Vital Signs Vital signs: Temp Pulse Resp BP Pulse Ox 98.4 F 84 20 137/87 H 95 03/26/20 13:47 03/26/20 13:47 03/26/20 13:47 03/26/20 13:47 03/26/20 13:47 - Laboratory Result Diagrams: 03/26/20 15:25 03/26/20 15:25 Laboratory results interpreted by me: 03/26/20 03/26/20 15:25 15:25 WBC 3.5 L RBC 3.26 L Hct 35.6 L MCV 109 H MCH 37.7 H RDW 14.2 H Plt Count 144 L [place] % (Auto) 15.9 H Absolute Neuts (auto) 1.6 L Sodium 146.7 H Chloride 111 H AST 394 H ALT 2048 H Total Protein 6.1 L - EKG Interpretation by [place] EKG shows normal: Sinus rhythm Rate: Normal Rhythm: NSR Discharge - Discharge Clinical Impression: Transaminitis Asthma exacerbation Qualifiers: Asthma severity: unspecified severity Asthma persistence: unspecified Qualified Code(s): J45.901 - Unspecified asthma with (acute) exacerbation Condition: Good Disposition: HOME, SELF-CARE Instructions: Liver Function Abnormality ([facility]), Asthma ([facility]) Prescriptions: Dexamethasone [Decadron 4 mg Tablet] 4 mg PO DAILY 5 Days #5 tablet Referrals: ERIC PRIDE MD [Primary Care Provider] - Follow up tomorrow
--- NOTE | 2020-03-26 15:16 | RADIOLOGY REPORT (SQ) ---
EXAM DESCRIPTION: CHEST SINGLE VIEW IMAGES COMPLETED DATE/TIME: 03/26/2020 2:40 pm REASON FOR STUDY: cough COMPARISON: 12/05/2019. EXAM PARAMETERS: NUMBER OF VIEWS: One view. TECHNIQUE: Single frontal radiographic view of the chest acquired. RADIATION DOSE: NA LIMITATIONS: None. FINDINGS: LUNGS AND PLEURA: No opacities, masses or pneumothorax. No pleural effusion. MEDIASTINUM AND HILAR STRUCTURES: No masses. Contour normal. HEART AND VASCULAR STRUCTURES: Heart normal in size. Normal vasculature. BONES: No acute findings. HARDWARE: None in the chest. OTHER: No other significant finding. IMPRESSION: NO ACUTE RADIOGRAPHIC FINDING IN THE CHEST. TECHNICAL DOCUMENTATION: JOB ID: [id number] 2010 [employer]- All Rights Reserved Reading location - IP/workstation name: [email or web address]
[2020-03-26 16:07] LABS: ABSOLUTE EOSINOPHILS # (AUTO) 0.1 10^3/uL (0.0-0.6); ABSOLUTE LYMPHOCYTES (AUTO) 1.2 10^3/uL (0.5-4.7); ABSOLUTE MONOCYTES (AUTO) 0.6 10^3/uL (0.1-1.4); ABSOLUTE NEUT (AUTO) 1.6 10^3/uL (1.7-8.2); EOSINOPHILS % (AUTO) 3.9 % (0-6); HEMATOCRIT 35.6 % (36.0-47.0); HEMOGLOBIN 12.3 g/dL (12.0-15.5); LYMPHOCYTES % (AUTO) 33.7 % (13-45); MEAN CORPUSCULAR HEMOGLOBIN 37.7 pg (27.0-33.4); MEAN CORPUSCULAR HGB CONC 34.5 g/dL (32.0-36.0); MEAN CORPUSCULAR VOLUME 109 fl (80-97); MONOCYTES % (AUTO) 15.9 % (3-13); PLATELET COUNT 144 10^3/uL (150-450); RED BLOOD COUNT 3.26 10^6/uL (3.72-5.28); RED CELL DISTRIBUTION WIDTH 14.2 % (11.5-14.0); SEGMENTED NEUTROPHILS % (AUTO) 45.5 % (42-78); TOTAL CELLS COUNTED % (AUTO) 100 %; WHITE BLOOD COUNT 3.5 10^3/uL (4.0-10.5)
[2020-03-26 16:18] LABS: ALBUMIN 3.5 g/dL (3.5-5.0); ALKALINE PHOSPHATASE 89 U/L (38-126); ANION GAP 7 (5-19); ASPARTATE AMINO TRANSFERASE 394 U/L (14-36); BILIRUBIN,DIRECT 0.4 mg/dL (0.0-0.4); BILIRUBIN,TOTAL 0.9 mg/dL (0.2-1.3); BLOOD UREA NITROGEN 19 mg/dL (7-20); CALCIUM 8.7 mg/dL (8.4-10.2); CARBON DIOXIDE 29 mmol/L (22-30); CHLORIDE 111 mmol/L (98-107); GLUCOSE 97 mg/dL (75-110); TOTAL PROTEIN 6.1 g/dL (6.3-8.2)
[2020-03-26 17:13] LABS: A TYPE INFLUENZA AG NEGATIVE (NEGATIVE); B INFLUENZA AG NEGATIVE (NEGATIVE)
[2020-03-26 18:34] VITALS: BP 152/89
--- NOTE | 2020-03-26 20:16 | EKG REPORT ---
SEVERITY:- BORDERLINE ECG - SINUS RHYTHM LVH BY VOLTAGE : Confirmed by: Yadi Rosas MD 26-Mar-2020 20:16:09
== END 2020-03-26 18:32 | disposition home or self-care (01) ==
LOC: ER 13:40
DX: J45.901 Unspecified asthma with (acute) exacerbation (principal); R74.0 Nonspecific elevation of levels of transaminase and lactic acid dehydrogenase [LDH]; R07.81 Pleurodynia; R06.02 Shortness of breath; R53.1 Weakness; I10 Essential (primary) hypertension; Z87.891 Personal history of nicotine dependence; Z88.6 Allergy status to analgesic agent; Z88.5 Allergy status to narcotic agent; Z88.8 Allergy status to other drugs, medicaments and biological substances; Z82.49 Family history of ischemic heart disease and other diseases of the circulatory system; Z20.828 Contact with and (suspected) exposure to other viral communicable diseases; Z87.01 Personal history of pneumonia (recurrent)
CPT/HCPCS: 93005; 94640; 99285; 96372; 36415; 85025; 80053; 87804; 71045; 93010; U0003; J1100; J7613; C9803; 87635

== ENCOUNTER 2020-04-04 08:30 | Emergency (ER) | payer OTHER ==
[2020-04-04] MEDS ORDERED: MORPHINE SULFATE 10 MG/ML INJ IV ONE ×2 (10:12→12:53)
[2020-04-04] MEDS ORDERED: NORMAL SALINE 1000 ML 1,000 ML IV ONE (10:12)
[2020-04-04] MEDS ORDERED: ONDANSETRON HCL INJ/PF 4 MG/2 ML SDV IV ONE (10:12)
[2020-04-04 10:23] LABS: ABSOLUTE EOSINOPHILS # (AUTO) 0.2 10^3/uL (0.0-0.6); ABSOLUTE LYMPHOCYTES (AUTO) 2.9 10^3/uL (0.5-4.7); ABSOLUTE NEUT (AUTO) 3.2 10^3/uL (1.7-8.2); BASOPHILS % (AUTO) 0.7 % (0-2); EOSINOPHILS % (AUTO) 2.7 % (0-6); HEMATOCRIT 39.4 % (36.0-47.0); HEMOGLOBIN 13.4 g/dL (12.0-15.5); LYMPHOCYTES % (AUTO) 39.5 % (13-45); MEAN CORPUSCULAR HEMOGLOBIN 37.3 pg (27.0-33.4); MEAN CORPUSCULAR VOLUME 110 fl (80-97); MONOCYTES % (AUTO) 13.5 % (3-13); PLATELET COUNT 212 10^3/uL (150-450); RED BLOOD COUNT 3.59 10^6/uL (3.72-5.28); SEGMENTED NEUTROPHILS % (AUTO) 43.6 % (42-78); TOTAL CELLS COUNTED % (AUTO) 100 %; WHITE BLOOD COUNT 7.3 10^3/uL (4.0-10.5)
[2020-04-04 10:28] LABS: APPEARANCE,URINE CLOUDY; BILIRUBIN,URINE SMALL (NEGATIVE); COLOR,URINE AMBER; GLUCOSE, URINE NEGATIVE (NEGATIVE); KETONES,URINE NEGATIVE (NEGATIVE); LEUKOCYTE ESTERASE,URINE NEGATIVE (NEGATIVE); NITRITE,URINE NEGATIVE (NEGATIVE); PROTEIN,URINE 100 mg/dL (NEGATIVE); URINE SPECIFIC GRAVITY 1.025
[2020-04-04 10:44] LABS: ALBUMIN 4.2 g/dL (3.5-5.0); ALKALINE PHOSPHATASE 67 U/L (38-126); ANION GAP 12 (5-19); ASPARTATE AMINO TRANSFERASE 30 U/L (14-36); BILIRUBIN,DIRECT 0.3 mg/dL (0.0-0.4); BILIRUBIN,TOTAL 0.8 mg/dL (0.2-1.3); BLOOD UREA NITROGEN 14 mg/dL (7-20); CALCIUM 9.2 mg/dL (8.4-10.2); CARBON DIOXIDE 29 mmol/L (22-30); CHLORIDE 101 mmol/L (98-107); GLUCOSE 105 mg/dL (75-110); POTASSIUM 4.1 mmol/L (3.6-5.0); TOTAL PROTEIN 6.8 g/dL (6.3-8.2)
--- NOTE | 2020-04-04 12:01 | RADIOLOGY REPORT (SQ) ---
EXAM DESCRIPTION: CT ABD/PELVIS WITH IV ONLY IMAGES COMPLETED DATE/TIME: 04/04/2020 11:37 am REASON FOR STUDY: upper abd pain COMPARISON: None. TECHNIQUE: CT scan of the abdomen and pelvis performed using helical scanning technique with dynamic intravenous contrast injection. No oral contrast. Images reviewed with lung, soft tissue, and bone windows. Reconstructed coronal and sagittal MPR images reviewed. Delayed images for evaluation of the urinary system also acquired. All images stored on PACS. All CT scanners at this facility use dose modulation, iterative reconstruction, and/or weight based d osing when appropriate to reduce radiation dose to as low as reasonably achievable (ALARA). [facility]: Dose Right [facility]: CareDose [facility]: Dose Right [facility]: Teradose 4D [facility]: Parents R People CONTRAST TYPE AND DOSE: contrast/concentration: Isovue 350.00 mmol/ml; Total Contrast Delivered: 78. 9 ml; Total Saline Delivered: 12.0 ml RENAL FUNCTION: BUN 19 creatinine 0.69. RADIATION DOSE: CT Rad equipment meets quality standard of care and radiation dose reduction techniq ues were employed. CTDIvol: 17.9 - 20.2 mGy. DLP: 2391 mGy-cm.. LIMITATIONS: None. FINDINGS: LOWER CHEST: No significant findings. No nodules or infiltrates. LIVER: Normal size. No masses. No dilated ducts. SPLEEN: Normal size. No focal lesions. PANCREAS: No masses. No significant calcifications. No adjacent inflammation or peripancreatic fluid collections. Pancreatic duct not dilated. GALLBLADDER: Surgically absent. ADRENAL GLANDS: No significant masses or asymmetry. RIGHT KIDNEY AND URETER: No solid masses. Small calyceal calculus. No hydronephrosis or hydrouret er. LEFT KIDNEY AND URETER: No solid masses. Small calyceal calculus. No hydronephrosis or hydrourete r. AORTA AND VESSELS: No aneurysm. No dissection. Renal arteries, SMA, celiac without stenosis. RETROPERITONEUM: No retroperitoneal adenopathy, hemorrhage or masses. BOWEL AND PERITONEAL CAVITY: No masses or inflammatory changes. No free fluid or peritoneal masses. APPENDIX: Normal. PELVIS: No mass. No free fluid. Normal bladder. ABDOMINAL WALL: No masses. No hernias. BONES: No significant or acute findings. OTHER: No other significant finding. IMPRESSION: SMALL NONOBSTRUCTING CALYCEAL CALCULI IN BOTH KIDNEYS. NO OTHER SIGNIFICANT OR ACUTE FI NDING IN THE ABDOMEN OR PELVIS ON CT SCAN WITH IV CONTRAST. TECHNICAL DOCUMENTATION: JOB ID: [id number] Quality ID # [id number]: Final reports with documentation of one or more dose reduction techniques (e.g., Au tomated exposure control, adjustment of the mA and/or kV according to patient size, use of iterative reconstruction technique) 2010 [employer]- All Rights Reserved Reading location - IP/workstation name: [email or web address]
[2020-04-04 12:36] VITALS: BP 103/87
[2020-04-04] MEDS ORDERED: CEFTRIAXONE 1 GM/D5W RTU 50 ML ONE (12:52)
[2020-04-04] MEDS ORDERED: CEFTRIAXONE 1 GM/D5W RTU 1 GM/50 ML RTUPB IV ONE (13:05)
--- NOTE | 2020-04-04 13:16 | ER Document Report ---
ED General - General Chief Complaint: Abdominal Pain Stated Complaint: ABDOMINAL PAIN Time Seen by Provider: 04/04/20 09:44 Primary Care Provider: ERIC PRIDE MD [Primary Care Provider] - Follow up as needed Information source: Patient TRAVEL OUTSIDE OF THE [place] IN LAST 30 DAYS: No - HPI Notes: Patient presents with upper abdominal pain. She states she has had this pain for several days. She states that the last time she was here for similar pain she was told that her liver functions were elevated and that it was most likely secondary to Tylenol usage. She states she has been trying to limit her usage of Tylenol. She has had some nausea but no vomiting. No trouble with stool. She states she has had no chest pain or shortness of breath. No problems with urination. This pain in the upper abdomen is constant. Nothing makes it better or worse. It does radiate across both sides of the abdomen and is sharp. - Related Data Allergies/Adverse Reactions: pentazocine lactate [From Talwin] Allergy (Intermediate, Verified 04/04/20 10:07) diphenhydramine HCl [From Benadryl] Allergy (Mild, Verified 04/04/20 10:07) metoclopramide HCl [From Reglan] Adverse Reaction (Intermediate, Verified 1 10:07) Histalet Forte Allergy (Severe, Uncoded 04/04/20 10:07) Past Medical History - General Information source: Patient - Social History Smoking Status: Former Smoker Frequency of alcohol use: None Drug Abuse: None Family History: CAD Patient has homicidal ideation: No - Past Medical History Cardiac Medical History: Reports: Hx Hypertension Denies: Hx Pulmonary Embolism Pulmonary Medical History: Reports: Hx Asthma, Hx Bronchitis, Hx Pneumonia - received the pneumovax and influenza vaccine in April Denies: Hx Tuberculosis Neurological Medical History: Reports: Hx Migraine - awaiting an ablation, sees pain management in [place], on Dilaudid 4mg Endocrine Medical History: Reports: Hx Hypothyroidism GI Medical History: Reports: Hx Gastroesophageal Reflux Disease, Hx Ulcer - Stomach Musculoskeletal Medical History: Reports Hx Arthritis, Reports Hx Fibromyalgia Psychiatric Medical History: Reports: Hx Bipolar Disorder, Hx Depression - anxiety Past Surgical History: Reports: Hx Cardiac Catheterization - X 2, Hx Cholecystectomy, Hx Hysterectomy, Hx Orthopedic Surgery - r arm x 10, Hx Thyroid Surgery - thyroidectomy. Denies: Hx Pacemaker - Immunizations Immunizations up to date: Yes Hx Diphtheria, Pertussis, Tetanus Vaccination: Yes Hx Pneumococcal Vaccination: 02/28/10 Review of Systems - Review of Systems Constitutional: denies: Chills, Fever Cardiovascular: denies: Chest pain, Palpitations Respiratory: denies: Cough, Short of breath -: Yes All other systems reviewed and negative Physical Exam - Vital signs Vitals: Temp Pulse Resp BP Pulse Ox 98.6 F 90 16 108/49 L 94 04/04/20 08:35 04/04/20 08:35 04/04/20 08:35 04/04/20 08:35 04/04/20 08:35 Interpretation: Normal - General General appearance: Appears well, Alert - HEENT Head: Normocephalic, Atraumatic Eyes: Normal Pupils: PERRL - Respiratory Respiratory status: No respiratory distress Chest status: Nontender Breath sounds: Normal Chest palpation: Normal - Cardiovascular Rhythm: Regular Heart sounds: Normal auscultation Murmur: No - Abdominal Inspection: Normal Distension: Distended Bowel sounds: Normal Tenderness: Tender - Patient has bilateral upper quadrant tenderness to palpation. But no rebound or guarding. Organomegaly: No organomegaly - Back Back: Normal, Nontender - Extremities General upper extremity: Normal inspection, Nontender, Normal color, Normal ROM, Normal temperature General lower extremity: Normal inspection, Nontender, Normal color, Normal ROM, Normal temperature, Normal weight bearing. No: Leslie's sign - Neurological Neuro grossly intact: Yes Cognition: Normal Orientation: AAOx4 Les Coma Scale Eye Opening: Spontaneous Les Coma Scale Verbal: Oriented Les Coma Scale Motor: Obeys Commands [place] Coma Scale Total: 15 Speech: Normal Motor strength normal: LUE, RUE, LLE, RLE Sensory: Normal - Psychological Associated symptoms: Normal affect, Normal mood - Skin Skin Temperature: Warm Skin Moisture: Dry Skin Color: Normal Course - Vital Signs Vital signs: Temp Pulse Resp BP Pulse Ox 98.6 F 90 13 103/87 H 96 04/04/20 08:35 04/04/20 08:35 04/04/20 13:00 04/04/20 12:09 04/04/20 13:00 - Laboratory Result Diagrams: 04/04/20 09:50 04/04/20 09:50 Laboratory results interpreted by me: 04/04/20 04/04/2004/04/20 09:50 09:50 10:03 RBC 3.59 L MCV 110 H MCH 37.3 [place] % (Auto) 13.5 H Est GFR ( Amer) 55 L Est GFR (MDRD) Non-Af 45 L ALT 153 H Urine Protein 100 H Urine Blood SMALL H Urine Bilirubin SMALL H Urine Urobilinogen 2.0 H - Diagnostic Test Radiology reviewed: Image reviewed, Reports reviewed - EKG Interpretation by Me EKG shows normal: Sinus rhythm Rate: Normal - 89 Rhythm: NSR Voltage: Consistent with LVH Discharge - Discharge Clinical Impression: UTI (urinary tract infection) Qualifiers: Urinary tract infection type: site unspecified Hematuria presence: with hematuria Qualified Code(s): N39.0 - Urinary tract infection, site not specified; R31.9 - Hematuria, unspecified Condition: Stable Disposition: HOME, SELF-CARE Instructions: Urinary Tract Infection ([facility]) Additional Instructions: Please follow-up with your pain management doctor and your primary doctor as scheduled Prescriptions: Cefdinir 300 mg PO BID 7 Days #14 capsule Forms: Return to Work Referrals: ERIC PRIDE MD [Primary Care Provider] - Follow up as needed
--- NOTE | 2020-04-04 17:37 | EKG REPORT ---
SEVERITY:- ABNORMAL ECG - SINUS RHYTHM LEFT VENTRICULAR HYPERTROPHY : Confirmed by: Yadi Rosas MD 04-Apr-2020 17:35:52
== END 2020-04-04 14:15 | disposition home or self-care (01) ==
LOC: ER 08:30
DX: N39.0 Urinary tract infection, site not specified (principal); R31.9 Hematuria, unspecified; N20.0 Calculus of kidney; R11.0 Nausea; J45.909 Unspecified asthma, uncomplicated; I10 Essential (primary) hypertension; Z87.891 Personal history of nicotine dependence; Z88.6 Allergy status to analgesic agent; Z88.5 Allergy status to narcotic agent; Z88.8 Allergy status to other drugs, medicaments and biological substances
CPT/HCPCS: 93005; 96376; 99285; 96361; 96375; 96365; 36415; 83690; 85025; 80053; 81001; 74177; 93010; J2270; J2405; J7030; J0696

== ENCOUNTER 2020-04-04 20:00 | Inpatient (IN) | payer OTHER ==
--- NOTE | 2020-04-04 20:50 | ER Document Report ---
ED General - General Chief Complaint: Altered Mental Status Stated Complaint: ALTERED MENTAL STATUS Time Seen by Provider: 04/04/20 20:49 Primary Care Provider: ERIC PRIDE MD [Primary Care Provider] - Follow up as needed TRAVEL OUTSIDE OF THE [place] IN LAST 30 DAYS: No - HPI Notes: 54-year-old female presents with concerns for altered mental status, shortness of breath and abdominal pain. Patient was seen in the emergency department earlier today for upper abdominal pain, she had a CT abdomen which not show any acute findings, she was diagnosed with a UTI. Patient's states that he noticed that when she was driving home from the emergency department today, her hands seemed very pale and cold. She also had some episodes of shaking and jerking when she got home. He states that he then left the house, however his sons called him around 6:30-7:00 PM saying that patient was sleeping but there is concerned that she had "stopped breathing". Called EMS and was told that she had shallow breathing, was started on BiPAP. Patient states that since she has been on BiPAP her breathing is better. She states that she "did not have enough air". She complains of upper abdominal pain, states it feels like she is being stabbed. Patient was seen in the emergency department on March 26, it was noted that she had elevated LFTs at that time. She states that she was told was from chronic Tylenol use, states that she would take 8-9 pills 4-5 times per da y. She states that she has stopped taking this amount of Tylenol. She was supposed to have an outpatient ultrasound of her liver done through her primary care doctor which she did not do. - Related Data Allergies/Adverse Reactions: pentazocine lactate [From Talwin] Allergy (Intermediate, Verified 04/04/20 10:07) diphenhydramine HCl [From Benadryl] Allergy (Mild, Verified 04/04/20 10:07) metoclopramide HCl [From Reglan] Adverse Reaction (Intermediate, Verified 04/04/20 10:07) Histalet Forte Allergy (Severe, Uncoded 04/04/20 10:07) Past Medical History - General Information source: Patient, Relative - Social History Smoking Status: Unknown if Ever Smoked Family History: CAD - Past Medical History Cardiac Medical History: Reports: Hx Hypertension Denies: Hx Pulmonary Embolism Pulmonary Medical History: Reports: Hx Asthma, Hx Bronchitis, Hx Pneumonia - received the pneumovax and influenza vaccine in April Denies: Hx Tuberculosis Neurological Medical History: Reports: Hx Migraine - awaiting an ablation, sees pain management in [place], on Dilaudid 4mg Endocrine Medical History: Reports: Hx Hypothyroidism GI Medical History: Reports: Hx Gastroesophageal Reflux Disease, Hx Ulcer - Stomach Musculoskeletal Medical History: Reports Hx Arthritis, Reports Hx Fibromyalgia Psychiatric Medical History: Reports: Hx Bipolar Disorder, Hx Depression - anxiety Past Surgical History: Reports: Hx Cardiac Catheterization - X 2, Hx Cholecystectomy, Hx Hysterectomy, Hx Orthopedic Surgery - r arm x 10, Hx Thyroid Surgery - thyroidectomy. Denies: Hx Pacemaker - Immunizations Immunizations up to date: Yes Hx Diphtheria, Pertussis, Tetanus Vaccination: Yes Hx Pneumococcal Vaccination: 02/28/10 Review of Systems - Review of Systems Constitutional: denies: Fever EENT: No symptoms reported Cardiovascular: denies: Chest pain Respiratory: Short of breath Gastrointestinal: Abdominal pain. denies: Diarrhea, Vomiting Genitourinary: Dysuria Female Genitourinary: No symptoms reported Musculoskeletal: No symptoms reported Skin: No symptoms reported Hematologic/Lymphatic: No symptoms reported Neurological/Psychological: Confusion Physical Exam - Vital signs Vitals: Resp Pulse Ox 12 93 04/04/20 20:06 04/04/20 20:06 - General General appearance: Alert In distress: None - HEENT Head: Normocephalic, Atraumatic Extraocular movements intact: Yes Pupils: PERRL - Pupils small approximately 2 mm, reactive bilaterally - Respiratory Respiratory status: No respiratory distress Breath sounds: Decreased air movement - Bases, consider limitation in exam due to body habitus - Cardiovascular Rhythm: Regular Heart sounds: Normal auscultation Decreased capillary refill in seconds: 3 - Abdominal Inspection: Obese Distension: No distension Bowel sounds: Normal Tenderness: Tender - Epigastric - Genitourinary Notes: A Wilder was placed prior to evaluation, appears to have clear urine draining - Extremities General upper extremity: Normal inspection General lower extremity: Normal inspection. No: Edema - Neurological Neuro grossly intact: Yes Cognition: Normal Orientation: AAOx4 Notes: Patient is awake and alert, GCS 15, follows commands. She does intermittently doze off, however arouses easily. Her speech is clear, face symmetric, motor strength symmetric between extremities. Intermittent myoclonic jerk of lower extremities - Psychological Associated symptoms: Normal affect - Skin Skin Temperature: Warm Course - Re-evaluation Re-evalutation: 54-year-old female arrives via EMS after concerns for respiratory depression at home, she was initiated on BiPAP. Currently her lungs are grossly clear, there is some decrease sounds at the bases but this could be from her body habitus. Sats are 90% on BiPAP. Patient is awake and alert, intermittently dozes off but arouses easily, no gross neuro deficits. She complains of upper abdominal pain, she has some mild tenderness in this area, overall non-peritoneal. I did look into her previous ED visits, she did have elevated LFTs on March 26, this is from presumed chronic Tylenol overdosing. I have checked a level today including liver function test. She was seen in the emergency department this morning, she had a CT abdomen done which showed calyceal calculi with overall no acute findings. There is no abnormalities or biliary ductal dilation seen per radiology. She was diagnosed with a UTI. She was hypotensive on arrival, her blood pressure improved in the room to >90 systolic. Additionally febrile 101.7 holding on administering Tylenol given her reported history. I suspect that her AMS/hypotension is likely multifactorial. UTI could be contributing. Have started Zosyn and 2 L of fluid. I am concerned potentially may be there is some component of unintentional opiate overdose as she is chronically on these medications, this could have also led to her respiratory depression. CO2 retention would likely as well. We will continue her on BiPAP and trend gases. 04/04/20 22:50 No leukocytosis, however there are toxic granulations on her differential. Based on VBG there is a respiratory acidosis with PCO2 87.6 and pH 7.1 Sodium within normal limits There has been an increase in her creatinine from today and from baseline AST is within normal limits, ALT elevated however has decreased from previous check today and overall from 2 weeks ago when it was greater than 1000. APAP is negative Urine is not overtly suggestive of UTI, however her urine from earlier today had pyuria, bacteria and leuk esterase 04/04/20 22:57 Patient looks to be improved. Systolic is now 102 after fluids. Updated patient and on results so far. Have ordered a repeat VBG 04/04/20 23:58 Informed by nursing that patient has only received 1 L fluid, second liter is being started now 04/05/20 01:02 Repeat gas with worsening of CO2 retention. Patient remains alert and communicative, she currently is off BiPAP at this time and is not hypoxic, BiPAP is off because she is getting ready to go to CT. We will have respiratory adjust settings 04/05/20 01:12 Mostly recent BP 98/53, heart rate 89 04/05/20 01:47 Patient came back from CT and was on nasal cannula, satting mid 70s. She is immediately being placed back on BiPAP 04/05/20 04:11 I gone in and seen patient, she remains alert and interactive. Blood pressure has remained above 100. Patient to be admitted to [facility] via the hospital team - Vital Signs Vital signs: Temp Pulse Resp BP Pulse Ox 101.7 F H 12 99/60 L 98 04/04/20 20:42 04/05/20 02:46 04/05/20 02:46 04/05/20 02:46 - Laboratory Result Diagrams: 04/04/20 20:44 04/04/20 20:44 Laboratory results interpreted by me: 04/04/20 04/04/20 04/04/20 20:44 20:44 20:44 RBC 3.26 L MCV 111 H MCH 37.8 H Dewey % (Auto) 13.6 H VBG pH 7.10 L* VBG pCO2 87.6 H* Creatinine 1.75 H Est GFR ( Amer) 37 L Est GFR (MDRD) Non-Af 30 L Glucose 112 H Calcium 8.3 L Phosphorus 7.3 H ALT 135 H Urine Protein Urine Blood Salicylates < 1.0 L Acetaminophen < 10 L 04/04/20 04/04/20 20:50 23:39 RBC MCV MCH [place] % (Auto) VBG pH 7.06 L* VBG pCO2 111.2 H* Creatinine Est GFR ( Amer) Est GFR (MDRD) Non-Af Glucose Calcium Phosphorus ALT Urine Protein 30 H Urine Blood SMALL H Salicylates Acetaminophen - Diagnostic Test Radiology reviewed: Image reviewed, Reports reviewed Discharge - Discharge Clinical Impression: IVET (acute kidney injury), CO2 retention, Respiratory acidosis Sepsis Qualifiers: Sepsis type: sepsis due to unspecified organism Sepsis acute organ dysfunction status: with acute organ dysfunction Severe sepsis acute organ dysfunction type: unspecified Severe sepsis shock status: unspecified Qualified Code(s): A41.9 - Sepsis, unspecified organism; R65.20 - Severe sepsis without septic shock Disposition: ADMITTED INPATIENT Admitting Provider: Aries (Hospitalist) Unit Admitted: IMCU Referrals: ERIC PRIDE MD [Primary Care Provider] - Follow up as needed
[2020-04-04] MEDS ORDERED: FAMOTIDINE INJ/PF 20 MG/2 ML SDV IV ONE (21:04)
[2020-04-04] MEDS ORDERED: PIPERACILLIN/TAZOBACTAM 4.5 GM VIAL IV ONE (21:08)
[2020-04-04 21:10] LABS: ABSOLUTE EOSINOPHILS # (AUTO) 0.1 10^3/uL (0.0-0.6); ABSOLUTE LYMPHOCYTES (AUTO) 1.7 10^3/uL (0.5-4.7); ABSOLUTE MONOCYTES (AUTO) 1.1 10^3/uL (0.1-1.4); ABSOLUTE NEUT (AUTO) 5.4 10^3/uL (1.7-8.2); BASOPHILS % (AUTO) 0.6 % (0-2); EOSINOPHILS % (AUTO) 1.5 % (0-6); HEMATOCRIT 36.1 % (36.0-47.0); HEMOGLOBIN 12.3 g/dL (12.0-15.5); LYMPHOCYTES % (AUTO) 20.3 % (13-45); MEAN CORPUSCULAR HEMOGLOBIN 37.8 pg (27.0-33.4); MEAN CORPUSCULAR HGB CONC 34.1 g/dL (32.0-36.0); MONOCYTES % (AUTO) 13.6 % (3-13); PLATELET COUNT 167 10^3/uL (150-450); RED BLOOD COUNT 3.26 10^6/uL (3.72-5.28); RED CELL DISTRIBUTION WIDTH 13.2 % (11.5-14.0); TOTAL CELLS COUNTED % (AUTO) 100 %; WHITE BLOOD COUNT 8.4 10^3/uL (4.0-10.5)
[2020-04-04 21:15] LABS: VENOUS BLOOD BASE EXCESS -5.7 mmol/L; VENOUS BLOOD HCO3 26.4 mmol/L (20-32)
[2020-04-04 21:18] LABS: VENOUS BLOOD PCO2 87.6 mmHg (35-63); VENOUS BLOOD PH 7.1 (7.30-7.42)
[2020-04-04 21:19] LABS: INTERNATIONAL RATION (INR) 1.01; PARTIAL THROMBOPLASTIN TIME 29.6 SEC (23.5-35.8); PROTHROMBIN TIME 13.6 SEC (11.4-15.4)
[2020-04-04 21:28] LABS: ALBUMIN 3.9 g/dL (3.5-5.0); ALKALINE PHOSPHATASE 64 U/L (38-126); ANION GAP 9 (5-19); ASPARTATE AMINO TRANSFERASE 28 U/L (14-36); BILIRUBIN,DIRECT 0.4 mg/dL (0.0-0.4); BILIRUBIN,TOTAL 0.6 mg/dL (0.2-1.3); BLOOD UREA NITROGEN 15 mg/dL (7-20); CALCIUM 8.3 mg/dL (8.4-10.2); CARBON DIOXIDE 29 mmol/L (22-30); CHLORIDE 102 mmol/L (98-107); CREATINE KINASE 80 U/L (30-135); GLUCOSE 112 mg/dL (75-110); PHOSPHORUS 7.3 mg/dL (2.5-4.5); POTASSIUM 4.4 mmol/L (3.6-5.0); TOTAL PROTEIN 6.4 g/dL (6.3-8.2)
[2020-04-04 21:29] LABS: ACETAMINOPHEN < 10 ug/mL (10-30); ALCOHOL < 10 mg/dL (NONE DETECTED); SALICYLATE < 1.0 mg/dL (2.0-20.0)
[2020-04-04] MEDS: RINGERS SOLUTION,LACTATED 1,000 ML IV PRN ×2 (21:33→23:53)
[2020-04-04 21:35] LABS: PLATELET CLUMPS PRESENT; PLATELET COMMENT ADEQUATE
[2020-04-04 21:36] LABS: STOMATOCYTES 3+
[2020-04-04 21:37] LABS: TOXIC GRANULATION SLIGHT
[2020-04-04 21:38] LABS: WBC MORPHOLOGY COMMENT MACROCYTIC NORMOCHRO
[2020-04-04 21:39] LABS: MEAN CORPUSCULAR VOLUME 111 fl (80-97)
[2020-04-04 21:48] LABS: APPEARANCE,URINE CLEAR; BILIRUBIN,URINE NEGATIVE (NEGATIVE); COLOR,URINE YELLOW; GLUCOSE, URINE NEGATIVE (NEGATIVE); KETONES,URINE NEGATIVE (NEGATIVE); LEUKOCYTE ESTERASE,URINE NEGATIVE (NEGATIVE); NITRITE,URINE NEGATIVE (NEGATIVE); PROTEIN,URINE 30 mg/dL (NEGATIVE); UROBILINOGEN,URINE NEGATIVE mg/dL (<2.0)
--- NOTE | 2020-04-04 21:57 | RADIOLOGY REPORT (SQ) ---
XR CHEST 1 VIEW HISTORY: SOB. COMPARISON: 03/26/2020 FINDINGS: The heart size is mildly enlarged. There is no pulmonary vascular congestion. No consolidation, pleural effusion, or pneumothorax is seen. No acute bony findings are seen. IMPRESSION: No evidence of acute cardiopulmonary disease.
[2020-04-04 22:06] LABS: URINE AMPHETAMINES SCREEN NEGATIVE; URINE BENZODIAZEPINES SCREEN NEGATIVE; URINE COCAINE SCREEN NEGATIVE; URINE MARIJUANA (THC) SCREEN NEGATIVE; URINE METHADONE SCREEN NEGATIVE; URINE PHENCYCLIDINE SCREEN NEGATIVE
[2020-04-04 22:08] LABS: URINE BARBITURATES SCREEN UNCONFIRMED POSITIVE
[2020-04-05] LABS: VENOUS BLOOD BASE EXCESS -2.4 mmol/L; VENOUS BLOOD HCO3 30.6 mmol/L (20-32)
[2020-04-05 00:06] LABS: VENOUS BLOOD PH 7.06 (7.30-7.42)
[2020-04-05 00:07] LABS: VENOUS BLOOD PCO2 111.2 mmHg (35-63)
--- NOTE | 2020-04-05 01:53 | RADIOLOGY REPORT (SQ) ---
EXAM DESCRIPTION: Contrast CT head CLINICAL HISTORY: 54 years Female AMS TECHNIQUE: Noncontrast CT head. All CT scans at this facility use dose modulation, iterative reconstruction, and/or weight based dosing when appropriate to reduce radiation dose to as low as reasonably achievable. COMPARISON: September 14, 2019 FINDINGS: Johns matter, white matter, ventricles, and cisterns are within normal limits. No acute hemorrhage or mass effect. Visualized portions of paranasal sinuses demonstrate a right maxillary mucous retention cyst versus polyp. Mastoids are clear. Rounded calcification along the left frontal inner calvarial table is nonspecific but stable in appearance and may represent an incidental small calcified meningioma. Bilateral lens implants. IMPRESSION: 1. No acute intracranial findings.
[2020-04-05] MEDS ORDERED: IPRATROPIUM/ALBUTEROL 0.5-2.5 MG/3 ML AMPUL NEB PRN (05:18)
[2020-04-05] MEDS ORDERED: ACETAMINOPHEN 325 MG TABLET PO PRN (05:18)
[2020-04-05] MEDS ORDERED: ONDANSETRON 4 MG TAB.RAPDIS PO PRN (05:18)
[2020-04-05] MEDS ORDERED: NALOXONE HCL INJ/PF 0.4 MG/1 ML SDV IV ONE (05:23)
[2020-04-05] MEDS ORDERED: PIPERACILLIN/TAZOBACTAM 4.5 GM VIAL IV ONE (06:07)
[2020-04-05] MEDS: PIPERACILLIN SODIUM/TAZOBACTAM 4.5 GM in NORMAL SALINE 100 ML IV SCH ×4 (06:22→23:51)
[2020-04-05] MEDS: HEPARIN SOD (PORCINE) 5,000 UNIT/ML 1 ML VIAL SUBCUT SCH ×3 (06:25→22:05)
[2020-04-05 06:28] LABS: ARTERIAL BLOOD HCO3 29.5 mmol/L (20-24); ARTERIAL BLOOD O2 SATURATION 95.2 % (94-98); ARTERIAL BLOOD PO2 97.2 mmHg (80-100)
[2020-04-05 06:50] LABS: ARTERIAL BLOOD FIO2 60%
[2020-04-05 06:52] LABS: ARTERIAL BLOOD PH 7.17 (7.35-7.45)
--- NOTE | 2020-04-05 06:58 | PDOC H&P ---
History of Present Illness Admission Date/PCP: 04/05/20 04:19 ERIC PRIDE MD History of Present Illness: RACHANA HODGE is a 54 year old female, past medical history of asthma, hypot hyroidism, hypertension, hyperlipidemia,, depression, bipolar disorder who was brought to the ED due to altered mental status. Patient was initially seen in the emergency room yesterday with complaints of abdominal pain for 2 days. She denies any fever, no diarrhea, no dysuria or other urinary symptoms. Pain is mainly epigastric to left upper quadrant area, sharp, nonradiating, 10 out of 10 at its most painful. Urinalysis that was done showed an matias-colored urine, small blood, negative nitrite, negative leukocyte esterase. CT of the abdomen showed small nonobstructing calyceal calculi in both kidneys. No other significant or acute findings in the abdomen or pelvis on CT scan with IV contrast. Eventually sent home with prescriptions for cefdinir. Came back a few hours after due to altered mental status. According to her he noticed that when she was driving home from the emergency room her hands seem very pale and cold. She also had some episodes of shaking and jerking when she got home. He was called by his sons at around 630 to 7 PM saying that the patient was sleeping but that it seemed that she had stopped breathing. EMS was called and she was noted to have shallow breathing and she was started on BiPAP. In the ED she was noted to be borderline hypotensive to 90s over 50s, heart rate of 88. BC showed a WBC count of 8.4, hemoglobin 12.3, platelet 167. CMP showed sodium of 140 potassium 4.4, creatinine 1.75 which was increased from yesterday's value of 1.24. Venous blood gas showed pH of 7.06, PCO2 111.2. There was a delay in adjusting her BiPAP settings. Of note, she told me that a few years ago she was using a "machine" to help her breathe but was told that she can stop using it because she did not need it. Per review of her medication she is also on diazepam, temazepam, hydromorphone which can worsen her hypoventilation. She does have a history of similar episode in 2017. She is on oxcarbazepine presently, unsure the indication. She follows with a pain management clinic at [place]. Past Medical History Cardiac Medical History: Reports: Hypertension Denies: Pulmonary Embolism Pulmonary Medical History: Reports: Asthma, Bronchitis, Pneumonia - received the pneumovax and influenza vaccine in April Denies: Tuberculosis Neurological Medical History: Reports: Migraine - awaiting an ablation, sees pain management in [place], on Dilaudid 4mg Endocrine Medical History: Reports: Hypothyroidism GI Medical History: Reports: Gastroesophageal Reflux Disease Musculoskeltal Medical History: Reports: Arthritis, Fibromyalgia Psychiatric Medical History: Reports: Bipolar Disorder, Depression - anxiety, General Anxiety Disorder Past Surgical History Past Surgical History: Reports: Cardiac Catheterization - X 2, Cholecystectomy, Hysterectomy, Orthopedic Surgery - r arm x 10 Denies: Pacemaker Social History Smoking Status: Unknown if Ever Smoked Electronic Cigarette use?: No Frequency of Alcohol Use: None Hx Recreational Drug Use: No Hx Prescription Drug Abuse: No - Advance Directive Resuscitation Status: Full Code Family History Family History: CAD Parental Family History Reviewed: Yes Children Family History Reviewed: Yes Sibling(s) Family History Reviewed.: Yes Medication/Allergy Home Medications: Albuterol Sulfate [Proair HFA] 2 puff IH Q4HP PRN 08/24/16 Atorvastatin Calcium [Lipitor 40 mg Tablet] 40 mg PO Q2DAYS 08/24/16 Besifloxacin HCl [Besivance Drops] 1 drop OD TID 08/24/16 Brimonidine Tartrate [Alphagan 0.2% Oph Soln 5 ml] 1 drop OS TID 08/24/16 Citalopram Hydrobromide [Celexa] 40 mg PO DAILY 08/24/16 Diazepam [Valium 5 mg Tablet] 5 mg PO BIDP PRN 08/24/16 Dorzolamide HCl [Trusopt Plus 2% Oph Soln 10 ml] 1 drop OS TID 08/24/16 Furosemide [Lasix] 20 mg PO DAILY 08/24/16 Hydromorphone HCl [Dilaudid] 4 mg PO Q6HP PRN 08/24/16 Ipratropium/Albuterol Sulfate [Duoneb 3 ml Ampul] 1 vial IH Q4HP PRN 08/24/16 Levothyroxine Sodium [Synthroid 0.15 mg Tablet] 0.15 mg PO DAILY 08/24/16 Loteprednol Etabonate [Lotemax] 1 drop OD QID 08/24/16 Morphine Sulfate [Ms-Contin Sr 15 mg Tablet] 15 mg PO BID 08/24/16 Omeprazole 40 mg PO DAILY 08/24/16 Oxcarbazepine [Trileptal] 300 mg PO BID 08/24/16 Promethazine HCl [Phenergan 25 mg Tablet] 25 mg PO Q6H PRN 08/24/16 Risperidone [Risperdal] 2 mg PO BID 08/24/16 Temazepam [Restoril 15 mg Capsule] 15 mg PO HSP PRN 08/24/16 Travoprost (Benzalkonium) [Travatan 0.004% Eye Drop] 1 drop OS QHS 08/24/16 Lidocaine [Lidoderm 5% (700 mg) Transdermal Patch] 1 patch TP DAILY #10 adh..patch 06/29/19 Ondansetron [Zofran Odt 4 mg Tablet] 1 - 2 tab PO Q4H PRN #15 tab.rapdis 09/15/19 Indomethacin 25 mg PO TID 7 Days #21 capsule 12/05/19 Prednisone [Deltasone 20 mg Tablet] 2 tab PO DAILY 5 Days tablet 12/05/19 Dexamethasone [Decadron 4 mg Tablet] 4 mg PO DAILY 5 Days #5 tablet 03/26/20 Cefdinir 300 mg PO BID 7 Days #14 capsule 04/04/20 Allergies/Adverse Reactions: pentazocine lactate [From Talwin] Allergy (Intermediate, Verified 04/04/20 10:07) diphenhydramine HCl [From Benadryl] Allergy (Mild, Verified 04/04/20 10:07) metoclopramide HCl [From Reglan] Adverse Reaction (Intermediate, Verified 04/04/20 10:07) Histalet Forte Allergy (Severe, Uncoded 04/04/20 10:07) Review of Systems Constitutional: ABSENT: fatigue, fever(s), night sweats Cardiovascular: ABSENT: chest pain Gastrointestinal: PRESENT: abdominal pain Neurological: PRESENT: abnormal movements - Myoclonic movements noted, confusion Psychiatric: ABSENT: hallucinations Physical Exam Vital Signs: Temp Pulse Resp BP Pulse Ox 97.6 F 15 111/60 100 04/05/20 03:00 04/05/20 04:46 04/05/20 04:46 04/05/20 04:46 Intake & Output 04/03/20 04/04/20 04/05/20 06:59 06:59 06:59 Intake Total 1000 Balance 1000 General appearance: PRESENT: mild distress, morbidly obese Head exam: PRESENT: atraumatic, normocephalic Eye exam: PRESENT: EOMI, PERRLA Ear exam: PRESENT: normal external ear exam Mouth exam: PRESENT: moist Neck exam: PRESENT: full ROM Respiratory exam: PRESENT: clear to auscultation rashaad, symmetrical, unlabored. ABSENT: rales, wheezes Cardiovascular exam: PRESENT: RRR, +S1, +S2 Pulses: PRESENT: +2 pedal pulses bilateral GI/Abdominal exam: PRESENT: normal bowel sounds, soft, tenderness - Gastric and left upper quadrant tenderness Extremities exam: PRESENT: full ROM Musculoskeletal exam: PRESENT: full ROM Neurological exam: PRESENT: alert, awake, oriented to person, oriented to place, oriented to time, other - Myoclonic jerks noted Psychiatric exam: PRESENT: normal mood Skin exam: PRESENT: normal color Results Laboratory Results: 04/04/20 20:44 04/04/20 20:44 04/04/20 04/04/20 04/04/20 20:44 20:44 20:44 WBC 8.4 RBC 3.26 L Hgb 12.3 Hct 36.1 MCV 111 H MCH 37.8 H MCHC 34.1 RDW 13.2 Plt Count 167 Seg Neutrophils % 64.0 VBG pH 7.10 L* VBG pCO2 87.6 H* VBG HCO3 26.4 VBG Base Excess -5.7 Sodium 140.0 Potassium 4.4 Chloride 102 Carbon Dioxide 29 Anion Gap 9 BUN 15 Creatinine 1.75 H Est GFR ( Amer) 37 L Glucose 112 H Lactic Acid Calcium 8.3 L Phosphorus 7.3 H Magnesium 1.8 Total Bilirubin 0.6 AST 28 Alkaline Phosphatase 64 Total Protein 6.4 Albumin 3.9 Lipase 63.3 Urine Color Urine Appearance Urine pH Ur Specific [place] Urine Protein Urine Glucose (UA) Urine Ketones Urine Blood Urine Nitrite Ur Leukocyte Esterase Urine WBC (Auto) Urine RBC (Auto) 04/04/20 04/04/20 04/04/20 20:44 20:50 23:39 WBC RBC Hgb Hct MCV MCH MCHC RDW Plt Count Seg Neutrophils % VBG pH 7.06 L* VBG pCO2 111.2 H* VBG HCO3 30.6 VBG Base Excess -2.4 Sodium Potassium Chloride Carbon Dioxide Anion Gap BUN Creatinine Est GFR ( Amer) Glucose Lactic Acid 1.3 Calcium Phosphorus Magnesium Total Bilirubin AST Alkaline Phosphatase Total Protein Albumin Lipase Urine Color YELLOW Urine Appearance CLEAR Urine pH 5.0 Ur Specific [place] 1.060 Urine Protein 30 H Urine Glucose (UA) NEGATIVE Urine Ketones NEGATIVE Urine Blood SMALL H Urine Nitrite NEGATIVE Ur Leukocyte Esterase NEGATIVE Urine WBC (Auto) 3 Urine RBC (Auto) 48 04/04/20 20:44 Creatine Kinase 80 Impressions: Chest X-Ray 04/04/20 21:02 IMPRESSION: No evidence of acute cardiopulmonary disease. Head CT 04/04/20 21:02 IMPRESSION: 1. No acute intracranial findings. Assessment and Plan - Diagnosis (1) Acute hypercapnic respiratory failure Is this a current diagnosis for this admission?: Yes Plan: - came in with AMS, decreased arousal, shallow breathing. She was using a "machine" for breathing a few years ago and was told to stop because she didn't need it. - +ve myoclonic jerks likely from CO2 retention - VBG pH 87.6, pCO2 111.2 - started on bipap improvement of mental status - CO2 retention likely from Obesity hypoventilation/EDILSON - repeat ABG pending - continue BIPAP (2) Acute metabolic encephalopathy Is this a current diagnosis for this admission?: Yes Plan: - improving - noted with myoclonic jerks - on oxcarbazepine unclear history of seizures - more likely 2/2 to hypercapnia aggravated by dilaudid and benzo intake - CT head negative - MRI ordered - urine drug screen ordered - ammonia pending (3) Respiratory acidosis Is this a current diagnosis for this admission?: Yes Plan: - VBG 7.06, pCO2 111.2 - Co2 retention likely from Obesity hypoventilation/EDILSON - continue bipap - repeat ABG (4) Abdominal pain Qualifiers: Abdominal location: left upper quadrant Qualified Code(s): R10.12 - Left upper quadrant pain Is this a current diagnosis for this admission?: Yes Plan: - 2 days duration, epigastric, LUQ, sharp - CT abd showed small non obstructing calyceal calculi - UA matias, small blood, RBC 26, negative nitrite and leukocyte esterase - pain likely from urolith - IV hydration (5) Sepsis Qualifiers: Sepsis type: sepsis due to unspecified organism Sepsis acute organ dysfunction status: with acute organ dysfunction Severe sepsis acute organ dysfunction type: encephalopathy Severe sepsis shock status: unspecified Qualified Code(s): A41.9 - Sepsis, unspecified organism; R65.20 - Severe sepsis without septic shock; G93.40 - Encephalopathy, unspecified Is this a current diagnosis for this admission?: Yes Plan: - with acute mental status, change, hypotension and new onset IVET - urine as likely source - given Iv fluids and zosyn in the ED - blood and urine culture pending - on zosyn - continue IV fluids (6) IVET (acute kidney injury) Is this a current diagnosis for this admission?: Yes Plan: - crea 1.24>1.75 - small kidney stones in CT, non obstructing, no hydronephrosis - continue IV fluids - monitor crea (7) Morbid obesity Is this a current diagnosis for this admission?: Yes Plan: - BMI >40 - advised lifestyle modification and diet (8) Hypothyroid Qualifiers: Hypothyroidism type: unspecified Qualified Code(s): E03.9 - Hypothyroidism, unspecified Is this a current diagnosis for this admission?: Yes Plan: - continue levothyroxine (9) Opioid dependence Is this a current diagnosis for this admission?: Yes Plan: - prior history of ED visit due to opioid overdose - on morphine 15 mg BID and dilaudid 4 mg Q6 PRN - ordered 1 dose of Narcan - (10) HLD (hyperlipidemia) Is this a current diagnosis for this admission?: Yes (11) Bipolar I disorder Is this a current diagnosis for this admission?: Yes Plan: - on risperidone and citalopram (12) Anxiety and depression Is this a current diagnosis for this admission?: Yes Plan: - on citalopram, temazepam and diazepam - i have not resumed any pf her benzo due to AMS, resume when appropriate - Time Time Spent with patient: 35 or more minutes Anticipated Discharge Disposition: Home, Self Care Anticipated Discharge Timeframe: within 48 hours - Inpatient Certification Medical Necessity: Risk of Complication if Not Cared For in Hospital
[2020-04-05 08:48] LABS: HEMATOCRIT 33.3 % (36.0-47.0); HEMOGLOBIN 11.4 g/dL (12.0-15.5); MEAN CORPUSCULAR HEMOGLOBIN 37.7 pg (27.0-33.4); MEAN CORPUSCULAR HGB CONC 34.2 g/dL (32.0-36.0); MEAN CORPUSCULAR VOLUME 110 fl (80-97); PLATELET COUNT 130 10^3/uL (150-450); RED BLOOD COUNT 3.03 10^6/uL (3.72-5.28); RED CELL DISTRIBUTION WIDTH 13.3 % (11.5-14.0); WHITE BLOOD COUNT 7.5 10^3/uL (4.0-10.5)
[2020-04-05 08:57] LABS: ALBUMIN 3.2 g/dL (3.5-5.0); ALKALINE PHOSPHATASE 61 U/L (38-126); ANION GAP 6 (5-19); ASPARTATE AMINO TRANSFERASE 38 U/L (14-36); BILIRUBIN,DIRECT 0.4 mg/dL (0.0-0.4); BILIRUBIN,TOTAL 0.8 mg/dL (0.2-1.3); BLOOD UREA NITROGEN 14 mg/dL (7-20); CARBON DIOXIDE 28 mmol/L (22-30); CHLORIDE 106 mmol/L (98-107); GLUCOSE 94 mg/dL (75-110); POTASSIUM 4.5 mmol/L (3.6-5.0); TOTAL PROTEIN 5.7 g/dL (6.3-8.2)
[2020-04-05] MEDS: LEVOTHYROXINE SODIUM 0.15 MG TABLET PO SCH (09:26)
[2020-04-05 11:39] LABS: ARTERIAL BLOOD BASE EXCESS 1.4 mmol/L; ARTERIAL BLOOD FIO2 50%; ARTERIAL BLOOD H2CO3 1.81 mmol/L (1.05-1.35); ARTERIAL BLOOD O2 SATURATION 97.8 % (94-98); ARTERIAL BLOOD PCO2 60.2 mmHg (35-45); ARTERIAL BLOOD PO2 116.6 mmHg (80-100); ARTERIAL BLOOD TOTAL CO2 30.8 mmol/L (21-25)
[2020-04-05 12:19] LABS: PATH REVIEW PATHOLOGIST REVIEWED
[2020-04-05] MEDS ORDERED: REGADENOSON INJ 0.4 MG/5 ML DISP.SYRIN IV ONE (13:14)
--- NOTE | 2020-04-05 13:42 | PDOC CONSULTATION ---
Consultation Consult Date: 04/05/20 Attending physician:: PAT LEMA Provider Consulted: SABINO PRIEST Consult reason:: Elevated troponin. History of Present Illness Admission Date/PCP: 04/05/20 04:19 ERIC PRIDE MD History of Present Illness: RACHANA HODGE is a 54 year old female with prior history of asthma, hypothyroidism, hypertension, hyperlipidemia,, depression, bipolar disorder who is consulted to our service for an elevated troponin level. She was initially seen in our emergency room approximately 2 days ago complaining of abdominal pain. That initial work-up was apparently negative and the patient was sent home. However she returned today by EMS due to altered mental status of unclear etiology. EMS started her on BiPAP due to respiratory distress. Per the emergency room physician's note the patient was hypotensive and tachycardic in t emergency room along with IVET. Her vital signs and IVET improved delete after receiving IV fluids and BiPAP was established. The patient is currently resting comfortably in her bed with a BiPAP machine. She specifically denies chest pain, shortness of breath, lower extremity edema, palpitations, syncope and presyncope. Her only complaints or back and abdominal pain. Physical exam on 04/05/2020: GENERAL: Older than stated age Pleasant and conversational. On a BiPAP machine oriented x3 with normal mood. Not in acute distress. Disheveled HEENT: Normocephalic, atraumatic. Pupils equal. Sclerae anicteric. Oropharynx moist. NECK: No JVD. No carotid bruits. LUNGS: Clear to auscultation bilaterally. Normal respiratory effort without the use of accessory muscles or intercostal retractions. CARDIOVASCULAR: Regular rate and rhythm, normal S1 and S2 without murmurs, rubs, or gallops. PMI not displaced. ABDOMEN: Diffusely tender to palpation particularly in the epigastric area. No bruit. Difficult to evaluate for organomegaly due to her obesity. No abdominal aorta bruit noted. EXTREMITIES: 1+ pitting edema bilaterally, no cyanosis, no clubbing. +2 pulses femoral and pedal pulses bilaterally. SKIN: No lesions or rashes. MUSCULOSKELETAL: No chest tenderness to palpation. NEUROLOGIC: Nonfocal. No gross sensory or motor deficits bilateral upper or lower extremities. Past Medical History Cardiac Medical History: Reports: Hypertension Denies: Pulmonary Embolism Pulmonary Medical History: Reports: Asthma, Bronchitis, Pneumonia - received the pneumovax and influenza vaccine in April Denies: Tuberculosis Neurological Medical History: Reports: Migraine - awaiting an ablation, sees pain management in [place], on Dilaudid 4mg Endocrine Medical History: Reports: Hypothyroidism GI Medical History: Reports: Gastroesophageal Reflux Disease Musculoskeltal Medical History: Reports: Arthritis, Fibromyalgia Psychiatric Medical History: Reports: Bipolar Disorder, Depression - anxiety, General Anxiety Disorder Past Surgical History Past Surgical History: Reports: Cardiac Catheterization - X 2, Cholecystectomy, Hysterectomy, Orthopedic Surgery - r arm x 10 Denies: Pacemaker Social History Smoking Status: Unknown if Ever Smoked Electronic Cigarette use?: No Frequency of Alcohol Use: None Hx Recreational Drug Use: No Hx Prescription Drug Abuse: No - Advance Directive Resuscitation Status: Full Code Family History Family History: CAD Parental Family History Reviewed: Yes Children Family History Reviewed: Yes Sibling(s) Family History Reviewed.: Yes Medication/Allergy Home Medications: Butalb/Acetaminophen/Caffeine [Fioricet 50-300-40 mg Capsule] 1 cap PO ASDIR PRN 04/05/20 Citalopram Hydrobromide [Citalopram HBr] 40 mg PO DAILY 04/05/20 Divalproex Sodium [Depakote ER 500 mg Tab.sr] 500 mg PO BID 04/05/20 Eszopiclone 3 mg PO HSP PRN 04/05/20 Gabapentin Enacarbil [Horizant] 600 mg PO Q12 04/05/20 Galcanezumab-Gnlm [Emgality Syringe] 120 mg INJ .QMONTHLY 04/05/20 Levothyroxine Sodium [Synthroid] 125 mcg PO Q6AM 04/05/20 Lorazepam [Ativan 1 mg Tablet] 1 mg PO DAILYP PRN 04/05/20 Losartan Potassium 100 mg PO DAILY 04/05/20 Metaxalone [Metaxall] 800 mg PO Q8 04/05/20 Metformin HCl [Metformin HCl ER] 500 mg PO QAM 04/05/20 Montelukast Sodium [Singulair 10 mg Tablet] 10 mg PO QHS 04/05/20 Oxycodone HCl [Oxy-Ir 5 mg Tablet] 10 mg PO Q12HP PRN 04/05/20 Oxycodone Myristate [Xtampza ER] 18 mg PO BID 04/05/20 Potassium Chloride [Klor-Con 10 Meq Tablet ER] 10 meq PO DAILY 04/05/20 Promethazine HCl [Phenergan 25 mg Tablet] 25 mg PO BIDP PRN 04/05/20 Risperidone [Risperdal 1 mg Tablet] 3 mg PO BID 04/05/20 Rosuvastatin Calcium [Crestor] 10 mg PO DAILY 04/05/20 Allergies/Adverse Reactions: pentazocine lactate [From Talwin] Allergy (Intermediate, Verified 04/04/20 10:07) diphenhydramine HCl [From Benadryl] Allergy (Mild, Verified 04/04/20 10:07) metoclopramide HCl [From Reglan] Adverse Reaction (Intermediate, Verified 10:07) Histalet Forte Allergy (Severe, Uncoded 04/04/20 10:07) Physical Exam Vital Signs: Temp Pulse Resp BP Pulse Ox 97.6 F 16 119/55 L 99 04/05/20 03:00 04/05/20 12:01 04/05/20 12:01 04/05/20 12:01 Intake & Output 04/04/20 04/05/20 04/06/20 06:59 06:59 06:59 Intake Total 1999 Balance 1999 Weight 102 kg Results Laboratory Results: 04/05/20 07:00 04/05/20 07:00 04/04/20 04/04/20 04/04/20 20:44 20:44 20:44 WBC 8.4 RBC 3.26 L Hgb 12.3 Hct 36.1 MCV 111 H MCH 37.8 H MCHC 34.1 RDW 13.2 Plt Count 167 Seg Neutrophils % 64.0 Carbonic Acid HCO3/H2CO3 Ratio ABG pH ABG pCO2 ABG pO2 ABG HCO3 ABG O2 Saturation ABG Base Excess VBG pH 7.10 L* VBG pCO2 87.6 H* VBG HCO3 26.4 VBG Base Excess -5.7 FiO2 Sodium 140.0 Potassium 4.4 Chloride 102 Carbon Dioxide 29 Anion Gap 9 BUN 15 Creatinine 1.75 H Est GFR ( Amer) 37 L Glucose 112 H Lactic Acid Calcium 8.3 L Phosphorus 7.3 H Magnesium 1.8 Total Bilirubin 0.6 AST 28 Alkaline Phosphatase 64 Ammonia Total Protein 6.4 Albumin 3.9 Lipase 63.3 TSH Free T4 Urine Color Urine Appearance Urine pH Ur Specific [place] Urine Protein Urine Glucose (UA) Urine Ketones Urine Blood Urine Nitrite Ur Leukocyte Esterase Urine WBC (Auto) Urine RBC (Auto) 04/04/20 04/04/20 04/04/20 20:44 20:50 23:39 WBC RBC Hgb Hct MCV MCH MCHC RDW Plt Count Seg Neutrophils % Carbonic Acid HCO3/H2CO3 Ratio ABG pH ABG pCO2 ABG pO2 ABG HCO3 ABG O2 Saturation ABG Base Excess VBG pH 7.06 L* VBG pCO2 111.2 H* VBG HCO3 30.6 VBG Base Excess -2.4 FiO2 Sodium Potassium Chloride Carbon Dioxide Anion Gap BUN Creatinine Est GFR ( Amer) Glucose Lactic Acid 1.3 Calcium Phosphorus Magnesium Total Bilirubin AST Alkaline Phosphatase Ammonia Total Protein Albumin Lipase TSH Free T4 Urine Color YELLOW Urine Appearance CLEAR Urine pH 5.0 Ur Specific [place] 1.060 Urine Protein 30 H Urine Glucose (UA) NEGATIVE Urine Ketones NEGATIVE Urine Blood SMALL H Urine Nitrite NEGATIVE Ur Leukocyte Esterase NEGATIVE Urine WBC (Auto) 3 Urine RBC (Auto) 48 04/05/20 04/05/20 04/05/20 06:01 07:00 07:00 WBC RBC Hgb Hct MCV MCH MCHC RDW Plt Count Seg Neutrophils % Carbonic Acid 2.50 H HCO3/H2CO3 Ratio 11:1 ABG pH 7.17 L* ABG pCO2 83.0 H* ABG pO2 97.2 ABG HCO3 29.5 H ABG O2 Saturation 95.2 ABG Base Excess -1.0 VBG pH VBG pCO2 VBG HCO3 VBG Base Excess FiO2 60% Sodium Potassium Chloride Carbon Dioxide Anion Gap BUN Creatinine Est GFR ( Amer) Glucose Lactic Acid Calcium Phosphorus Magnesium Total Bilirubin AST Alkaline Phosphatase Ammonia 18.0 Total Protein Albumin Lipase TSH 0.42 L Free T4 Urine Color Urine Appearance Urine pH Ur Specific [place] Urine Protein Urine Glucose (UA) Urine Ketones Urine Blood Urine Nitrite Ur Leukocyte Esterase Urine WBC (Auto) Urine RBC (Auto) 04/05/20 04/05/20 04/05/20 07:00 07:00 07:00 WBC 7.5 RBC 3.03 L Hgb 11.4 L Hct 33.3 L MCV 110 H MCH 37.7 H MCHC 34.2 RDW 13.3 Plt Count 130 L Seg Neutrophils % Carbonic Acid HCO3/H2CO3 Ratio ABG pH ABG pCO2 ABG pO2 ABG HCO3 ABG O2 Saturation ABG Base Excess VBG pH VBG pCO2 VBG HCO3 VBG Base Excess FiO2 Sodium 139.9 Potassium 4.5 Chloride 106 Carbon Dioxide 28 Anion Gap 6 BUN 14 Creatinine 1.30 H Est GFR ( Amer) 52 L Glucose 94 Lactic Acid Calcium 8.0 L Phosphorus Magnesium 1.8 Total Bilirubin 0.8 AST 38 H Alkaline Phosphatase 61 Ammonia Total Protein 5.7 L Albumin 3.2 L Lipase 47.4 TSH Free T4 Urine Color Urine Appearance Urine pH Ur Specific [place] Urine Protein Urine Glucose (UA) Urine Ketones Urine Blood Urine Nitrite Ur Leukocyte Esterase Urine WBC (Auto) Urine RBC (Auto) 04/05/20 04/05/20 04/05/20 07:00 09:58 11:17 WBC RBC Hgb Hct MCV MCH MCHC RDW Plt Count Seg Neutrophils % Carbonic Acid 1.81 H HCO3/H2CO3 Ratio 16:1 ABG pH 7.30 L ABG pCO2 60.2 H ABG pO2 116.6 H ABG HCO3 29.0 H ABG O2 Saturation 97.8 ABG Base Excess 1.4 VBG pH VBG pCO2 VBG HCO3 VBG Base Excess FiO2 50% Sodium Potassium Chloride Carbon Dioxide Anion Gap BUN Creatinine Est GFR ( Amer) Glucose Lactic Acid 0.8 Calcium Phosphorus Magnesium Total Bilirubin AST Alkaline Phosphatase Ammonia Total Protein Albumin Lipase TSH Free T4 0.96 Urine Color Urine Appearance Urine pH Ur Specific [place] Urine Protein Urine Glucose (UA) Urine Ketones Urine Blood Urine Nitrite Ur Leukocyte Esterase Urine WBC (Auto) Urine RBC (Auto) 04/04/20 04/05/20 20:44 07:00 Creatine Kinase 80 Troponin I 0.616 Impressions: Chest X-Ray 04/04/20 21:02 IMPRESSION: No evidence of acute cardiopulmonary disease. Head CT 04/04/20 21:02 IMPRESSION: 1. No acute intracranial findings. 04/05/20 07:00 04/05/20 07:00 MCV 110 fl (80-97) H 04/05/20 07:00 MCH 37.7 pg (27.0-33.4) H 04/05/20 07:00 MCHC 34.2 g/dL (32.0-36.0) 04/05/20 07:00 RDW 13.3 % (11.5-14.0) 04/05/20 07:00 Seg Neutrophils % 64.0 % (42-78) 04/04/20 20:44 Carbonic Acid 1.81 mmol/L (1.05-1.35) H 04/05/20 11:17 HCO3/H2CO3 Ratio 16:1 04/05/20 11:17 ABG pH 7.30 (7.35-7.45) L 04/05/20 11:17 ABG pCO2 60.2 mmHg (35-45) H 04/05/20 11:17 ABG pO2 116.6 mmHg (80-100) H 04/05/20 11:17 ABG HCO3 29.0 mmol/L (20-24) H 04/05/20 11:17 ABG O2 Saturation 97.8 % (94-98) 04/05/20 11:17 ABG Base Excess 1.4 mmol/L 04/05/20 11:17 VBG pH 7.06 (7.30-7.42) L* 04/04/20 23:39 VBG pCO2 111.2 mmHg (35-63) H* 04/04/20 23:39 VBG HCO3 30.6 mmol/L (20-32) 04/04/20 23:39 VBG Base Excess -2.4 mmol/L 04/04/20 23:39 FiO2 50% 04/05/20 11:17 Chloride 106 mmol/L (98-107) 04/05/20 07:00 Carbon Dioxide 28 mmol/L (22-30) 04/05/20 07:00 Anion Gap 6 (5-19) 04/05/20 07:00 Est GFR ( Amer) 52 (>60) L 04/05/20 07:00 Glucose 94 mg/dL (75-110) 04/05/20 07:00 Lactic Acid 0.8 mmol/L (0.7-2.1) 04/05/20 09:58 Calcium 8.0 mg/dL (8.4-10.2) L 04/05/20 07:00 Phosphorus 7.3 mg/dL (2.5-4.5) H 04/04/20 20:44 Magnesium 1.8 mg/dL (1.6-2.3) 04/05/20 07:00 Total Bilirubin 0.8 mg/dL (0.2-1.3) 04/05/20 07:00 AST 38 U/L (14-36) H 04/05/20 07:00 Alkaline Phosphatase 61 U/L (38-126) 04/05/20 07:00 Ammonia 18.0 umol/L (9-33) 04/05/20 07:00 Total Protein 5.7 g/dL (6.3-8.2) L 04/05/20 07:00 Albumin 3.2 g/dL (3.5-5.0) L 04/05/20 07:00 Lipase 47.4 U/L (23-300) 04/05/20 07:00 TSH 0.42 uIU/mL (0.47-4.68) L 04/05/20 07:00 Free T4 0.96 ng/dL (0.78-2.19) 04/05/20 07:00 Urine Color YELLOW 04/04/20 20:50 Urine Appearance CLEAR 04/04/20 20:50 Urine pH 5.0 (5.0-9.0) 04/04/20 20:50 Ur Specific [place] 1.060 04/04/20 20:50 Urine Protein 30 mg/dL (NEGATIVE) H 04/04/20 20:50 Urine Glucose (UA) NEGATIVE mg/dL (NEGATIVE) 04/04/20 20:50 Urine Ketones NEGATIVE mg/dL (NEGATIVE) 04/04/20 20:50 Urine Blood SMALL (NEGATIVE) H 04/04/20 20:50 Urine Nitrite NEGATIVE (NEGATIVE) 04/04/20 20:50 Ur Leukocyte Esterase NEGATIVE (NEGATIVE) 04/04/20 20:50 Urine WBC (Auto) 3 /HPF 04/04/20 20:50 Urine RBC (Auto) 48 /HPF 04/04/20 20:50 04/04/20 04/05/20 20:44 07:00 Creatine Kinase 80 Troponin I 0.616 Current Medication List Generic Name Dose Route Start Last Admin Trade Name Freq PRN Reason Stop Dose Admin Acetaminophen 650 mg 04/05/20 05:18 Tylenol 325 Mg Tablet PO 05/05/20 05:17 Q4HP PRN FEVER >101 Hydrocodone Bitart/Acetaminophen 1 tab 04/05/20 06:41 Murray 10-325 Mg Tablet PO 04/12/20 06:40 Q4HP PRN FOR PAIN Albuterol/Ipratropium 3 ml 04/05/20 05:18 Duoneb 3 Ml Ampul NEB 05/05/20 05:17 RTQ4HP PRN SHORTNESS OF BREATH Heparin Sodium (Porcine) 5,000 unit 04/05/20 06:00 04/05/20 06:25 Heparin Inj 5,000 Units/Ml 1 Ml Vial SUBCUT 05/05/20 05:59 5,000 unit Q8 TY Administration Piperacillin Sod/Tazobactam 100 mls @ 200 mls/hr 04/05/20 06:00 04/05/20 06:22 Sod 4.5 gm/ Sodium Chloride IV 04/12/20 05:59 200 mls/hr Q6 TY Administration Levothyroxine Sodium 0.15 mg 04/05/20 07:00 04/05/20 09:26 Synthroid 0.15 Mg Tablet PO 05/05/20 06:59 Not Given Q6AM TY Ondansetron HCl 4 mg 04/05/20 05:18 Zofran Odt 4 Mg Tablet PO 05/05/20 05:17 Q6HP PRN FOR NAUSEA/VOMITING Sodium Chloride 2.5 ml 04/05/20 06:00 04/05/20 09:36 Saline Flush 2.5 Ml Monoject Prefil Syrin IV 05/05/20 05:59 Not Given Q8 TY Discontinued Medications Generic Name Dose Route Start Last Admin Trade Name Wilberq PRN Reason Stop Dose Admin Famotidine 20 mg 04/04/20 21:04 04/04/20 21:32 Pepcid Inj/Pf 20 Mg/2 Ml Sdv IV 04/04/20 21:05 20 mg NOW ONE Administration Lactated Ringer's 1,000 mls @ 0 mls/hr 04/04/20 21:04 04/05/20 00:30 Lactated Ringers 1000 Ml Iv Soln IV Infused X 2 BAGS PRN Infusion THIS MED IS NOT "PRN" Wide Open Naloxone HCl 0.2 mg 04/05/20 05:23 04/05/20 06:04 Narcan Inj/Pf 0.4 Mg/1 Ml Sdv IV 04/05/20 05:24 0.2 mg NOW ONE Administration Piperacillin Sod/Tazobactam Sod 4.5 gm 04/04/20 21:08 04/04/20 21:31 Zosyn Inj 4.5 Gm Vial IV 04/04/20 21:09 4.5 gm IVBAG (ED) ONE Administration Piperacillin Sod/Tazobactam Sod Confirm 04/05/20 06:07 04/05/20 06:27 Zosyn Inj 4.5 Gm Vial Administered 04/05/20 06:08 Not Given Dose 4.5 gm IV .STK-MED ONE Assessment & Plan - Diagnosis (1) Elevated troponin I level Is this a current diagnosis for this admission?: Yes Plan: Although the patient has cardiac risk factors of sedentary lifestyle, hypertension, obesity and hyperlipidemia she does not have cardiac ischemic symptoms and is otherwise hemodynamically stable. Her EKG did not show ischemic changes either. Her elevated troponin is likely secondary to her overall medical condition given her hypotension, tachycardia and possible sepsis. Recommendations: -Continue with current medical management for now. -Obtain echocardiogram to assess for systolic function and regional wall motion abnormalities. -The patient will need ischemic assessment once her medical problems are resolved. -We will continue to follow with you.
--- NOTE | 2020-04-05 15:15 | EKG REPORT ---
SEVERITY:- NORMAL ECG - SINUS RHYTHM : Confirmed by: Yadi Rosas MD 05-Apr-2020 15:14:15
--- NOTE | 2020-04-05 15:15 | EKG REPORT ---
SEVERITY:- ABNORMAL ECG - SINUS TACHYCARDIA LEFT VENTRICULAR HYPERTROPHY : Confirmed by: Yadi Rosas MD 05-Apr-2020 15:14:18
[2020-04-05] MEDS: HYDROCODONE/ACETAMINOPHEN 10-325 MG TABLET PO PRN ×2 (17:59→22:33)
[2020-04-06] MEDS: HEPARIN SOD (PORCINE) 5,000 UNIT/ML 1 ML VIAL SUBCUT SCH ×3 (05:24→21:10)
[2020-04-06] MEDS: LEVOTHYROXINE SODIUM 0.15 MG TABLET PO SCH (05:29)
[2020-04-06] MEDS: PIPERACILLIN SODIUM/TAZOBACTAM 4.5 GM in NORMAL SALINE 100 ML IV SCH ×3 (05:30→17:13)
[2020-04-06 05:34] LABS: ABSOLUTE EOSINOPHILS # (AUTO) 0.1 10^3/uL (0.0-0.6); ABSOLUTE LYMPHOCYTES (AUTO) 1.3 10^3/uL (0.5-4.7); ABSOLUTE MONOCYTES (AUTO) 1.1 10^3/uL (0.1-1.4); BASOPHILS % (AUTO) 0.5 % (0-2); HEMATOCRIT 33.1 % (36.0-47.0); HEMOGLOBIN 11.5 g/dL (12.0-15.5); LYMPHOCYTES % (AUTO) 19.5 % (13-45); MEAN CORPUSCULAR HEMOGLOBIN 37.4 pg (27.0-33.4); MEAN CORPUSCULAR HGB CONC 34.8 g/dL (32.0-36.0); MEAN CORPUSCULAR VOLUME 108 fl (80-97); MONOCYTES % (AUTO) 17.2 % (3-13); PLATELET COUNT 121 10^3/uL (150-450); RED BLOOD COUNT 3.07 10^6/uL (3.72-5.28); RED CELL DISTRIBUTION WIDTH 12.7 % (11.5-14.0); SEGMENTED NEUTROPHILS % (AUTO) 60.8 % (42-78); TOTAL CELLS COUNTED % (AUTO) 100 %; WHITE BLOOD COUNT 6.6 10^3/uL (4.0-10.5)
[2020-04-06 05:53] LABS: ALBUMIN 3.2 g/dL (3.5-5.0); ALKALINE PHOSPHATASE 56 U/L (38-126); ASPARTATE AMINO TRANSFERASE 33 U/L (14-36); BILIRUBIN,DIRECT 0.3 mg/dL (0.0-0.4); BILIRUBIN,TOTAL 0.9 mg/dL (0.2-1.3); BLOOD UREA NITROGEN 12 mg/dL (7-20); CALCIUM 8.3 mg/dL (8.4-10.2); GLUCOSE 107 mg/dL (75-110); POTASSIUM 4.7 mmol/L (3.6-5.0); TOTAL PROTEIN 5.4 g/dL (6.3-8.2)
[2020-04-06 05:58] LABS: ANION GAP 5 (5-19); CARBON DIOXIDE 32 mmol/L (22-30); CHLORIDE 103 mmol/L (98-107)
--- NOTE | 2020-04-06 09:47 | PDOC PROGRESS REPORT ---
Subjective Progress Note for:: 04/06/20 Subjective:: RACHANA HODGE is a 54 year old female with prior history of asthma, hypothyroidism, hypertension, hyperlipidemia,, depression, bipolar disorder who is consulted to our service for an elevated troponin level. She was initially seen in our emergency room approximately 2 days ago complaining of abdominal pain. That initial work-up was apparently negative and the patient was sent home. However she returned today by EMS due to altered mental status of unclear etiology. EMS started her on BiPAP due to respiratory distress. Per the emergency room physician's note the patient was hypotensive and tachycardic in the emergency room along with IVET. Her vital signs and IVET improved delete after receiving IV fluids and BiPAP was established. The patient is currently resting comfortably in her bed with a BiPAP machine. She specifically denies chest pain, shortness of breath, lower extremity edema, palpitations, syncope and presyncope. Her only complaints or back and abdominal pain. 04/06/2020: The patient had an uneventful night and is found sleeping comfortably. BiPAP was discontinued. She has no specific cardiovascular complaints. She complains of generalized body pains. Her telemetry shows normal sinus rhythm with artifact. Physical exam on 04/06/2020: GENERAL: Older than stated age. Sleeping comfortably flat in the bed and easily arousable. Pleasant and conversational. On a BiPAP machine oriented x3 with normal mood. Not in acute distress. Disheveled HEENT: Normocephalic, atraumatic. Pupils equal. Sclerae anicteric. Oropharynx moist. NECK: No JVD. No carotid bruits. LUNGS: Clear to auscultation bilaterally. Normal respiratory effort without the use of accessory muscles or intercostal retractions. CARDIOVASCULAR: Regular rate and rhythm, normal S1 and S2 without murmurs, rubs, or gallops. PMI not displaced. ABDOMEN: Diffusely tender to palpation particularly in the epigastric area. No bruit. Difficult to evaluate for organomegaly due to her obesity. No abdominal aorta bruit noted. EXTREMITIES: Trace pitting edema bilaterally, no cyanosis, no clubbing. +2 pulses femoral and pedal pulses bilaterally. SKIN: No lesions or rashes. MUSCULOSKELETAL: No chest tenderness to palpation. NEUROLOGIC: Nonfocal. No gross sensory or motor deficits bilateral upper or lower extremities. Reason For Visit: ACUTE HYPERCAPNIC RESPIRATORY FAILURE,SEPSIS Physical Exam Vital Signs: Temp Pulse Resp BP Pulse Ox 98.0 F 69 16 144/73 H 98 04/06/20 03:34 04/06/20 03:34 04/06/20 03:34 04/06/20 03:34 04/06/20 03:34 Intake & Output 04/04/20 04/05/20 04/06/20 06:59 06:59 06:59 Intake Total 1999 222 Output Total 575 Balance 1999 - Weight 117.5 kg Results Laboratory Results: 04/06/20 05:08 04/05/20 04/05/20 04/05/20 06:01 07:00 07:00 WBC RBC Hgb Hct MCV MCH MCHC RDW Plt Count Seg Neutrophils % Carbonic Acid 2.50 H HCO3/H2CO3 Ratio 11:1 ABG pH 7.17 L* ABG pCO2 83.0 H* ABG pO2 97.2 ABG HCO3 29.5 H ABG O2 Saturation 95.2 ABG Base Excess -1.0 FiO2 60% Sodium Potassium Chloride Carbon Dioxide Anion Gap BUN Creatinine Est GFR ( Amer) Glucose Lactic Acid Calcium Magnesium Total Bilirubin AST Alkaline Phosphatase Ammonia 18.0 Total Protein Albumin Lipase TSH 0.42 L Free T4 04/05/20 04/05/20 04/05/20 07:00 07:00 07:00 WBC 7.5 RBC 3.03 L Hgb 11.4 L Hct 33.3 L MCV 110 H MCH 37.7 H MCHC 34.2 RDW 13.3 Plt Count 130 L Seg Neutrophils % Carbonic Acid HCO3/H2CO3 Ratio ABG pH ABG pCO2 ABG pO2 ABG HCO3 ABG O2 Saturation ABG Base Excess FiO2 Sodium 139.9 Potassium 4.5 Chloride 106 Carbon Dioxide 28 Anion Gap 6 BUN 14 Creatinine 1.30 H Est GFR ( Amer) 52 L Glucose 94 Lactic Acid Calcium 8.0 L Magnesium 1.8 Total Bilirubin 0.8 AST 38 H Alkaline Phosphatase 61 Ammonia Total Protein 5.7 L Albumin 3.2 L Lipase 47.4 TSH Free T4 04/05/20 04/05/20 04/05/20 07:00 09:58 11:17 WBC RBC Hgb Hct MCV MCH MCHC RDW Plt Count Seg Neutrophils % Carbonic Acid 1.81 H HCO3/H2CO3 Ratio 16:1 ABG pH 7.30 L ABG pCO2 60.2 H ABG pO2 116.6 H ABG HCO3 29.0 H ABG O2 Saturation 97.8 ABG Base Excess 1.4 FiO2 50% Sodium Potassium Chloride Carbon Dioxide Anion Gap BUN Creatinine Est GFR ( Amer) Glucose Lactic Acid 0.8 Calcium Magnesium Total Bilirubin AST Alkaline Phosphatase Ammonia Total Protein Albumin Lipase TSH Free T4 0.96 04/06/20 05:08 WBC 6.6 RBC 3.07 L Hgb 11.5 L Hct 33.1 L MCV 108 H MCH 37.4 H MCHC 34.8 RDW 12.7 Plt Count 121 L Seg Neutrophils % 60.8 Carbonic Acid HCO3/H2CO3 Ratio ABG pH ABG pCO2 ABG pO2 ABG HCO3 ABG O2 Saturation ABG Base Excess FiO2 Sodium Potassium Chloride Carbon Dioxide Anion Gap BUN Creatinine Est GFR ( Amer) Glucose Lactic Acid Calcium Magnesium Total Bilirubin AST Alkaline Phosphatase Ammonia Total Protein Albumin Lipase TSH Free T4 04/04/20 04/05/20 04/05/20 20:44 07:00 19:10 Creatine Kinase 80 Troponin I 0.616 0.306 Impressions: Chest X-Ray 04/04/20 21:02 IMPRESSION: No evidence of acute cardiopulmonary disease. Head CT 04/04/20 21:02 IMPRESSION: 1. No acute intracranial findings. 04/06/20 05:08 04/06/20 05:08 MCV 108 fl (80-97) H 04/06/20 05:08 MCH 37.4 pg (27.0-33.4) H 04/06/20 05:08 MCHC 34.8 g/dL (32.0-36.0) 04/06/20 05:08 RDW 12.7 % (11.5-14.0) 04/06/20 05:08 Seg Neutrophils % 60.8 % (42-78) 04/06/20 05:08 Carbonic Acid 1.81 mmol/L (1.05-1.35) H 04/05/20 11:17 HCO3/H2CO3 Ratio 16:1 04/05/20 11:17 ABG pH 7.30 (7.35-7.45) L 04/05/20 11:17 ABG pCO2 60.2 mmHg (35-45) H 04/05/20 11:17 ABG pO2 116.6 mmHg (80-100) H 04/05/20 11:17 ABG HCO3 29.0 mmol/L (20-24) H 04/05/20 11:17 ABG O2 Saturation 97.8 % (94-98) 04/05/20 11:17 ABG Base Excess 1.4 mmol/L 04/05/20 11:17 VBG pH 7.06 (7.30-7.42) L* 04/04/20 23:39 VBG pCO2 111.2 mmHg (35-63) H* 04/04/20 23:39 VBG HCO3 30.6 mmol/L (20-32) 04/04/20 23:39 VBG Base Excess -2.4 mmol/L 04/04/20 23:39 FiO2 50% 04/05/20 11:17 Chloride 103 mmol/L (98-107) 04/06/20 05:08 Carbon Dioxide 32 mmol/L (22-30) H 04/06/20 05:08 Anion Gap 5 (5-19) 04/06/20 05:08 Est GFR ( Amer) > 60 (>60) 04/06/20 05:08 Glucose 107 mg/dL (75-110) 04/06/20 05:08 Lactic Acid 0.8 mmol/L (0.7-2.1) 04/05/20 09:58 Calcium 8.3 mg/dL (8.4-10.2) L 04/06/20 05:08 Phosphorus 7.3 mg/dL (2.5-4.5) H 04/04/20 20:44 Magnesium 1.8 mg/dL (1.6-2.3) 04/05/20 07:00 Total Bilirubin 0.9 mg/dL (0.2-1.3) 04/06/20 05:08 AST 33 U/L (14-36) 04/06/20 05:08 Alkaline Phosphatase 56 U/L (38-126) 04/06/20 05:08 Ammonia 18.0 umol/L (9-33) 04/05/20 07:00 Total Protein 5.4 g/dL (6.3-8.2) L 04/06/20 05:08 Albumin 3.2 g/dL (3.5-5.0) L 04/06/20 05:08 Lipase 47.4 U/L (23-300) 04/05/20 07:00 TSH 0.17 uIU/mL (0.47-4.68) L 04/06/20 05:08 Free T4 0.96 ng/dL (0.78-2.19) 04/05/20 07:00 Urine Color YELLOW 04/04/20 20:50 Urine Appearance CLEAR 04/04/20 20:50 Urine pH 5.0 (5.0-9.0) 04/04/20 20:50 Ur Specific [employer] 1.060 04/04/20 20:50 Urine Protein 30 mg/dL (NEGATIVE) H 04/04/20 20:50 Urine Glucose (UA) NEGATIVE mg/dL (NEGATIVE) 04/04/20 20:50 Urine Ketones NEGATIVE mg/dL (NEGATIVE) 04/04/20 20:50 Urine Blood SMALL (NEGATIVE) H 04/04/20 20:50 Urine Nitrite NEGATIVE (NEGATIVE) 04/04/20 20:50 Ur Leukocyte Esterase NEGATIVE (NEGATIVE) 04/04/20 20:50 Urine WBC (Auto) 3 /HPF 04/04/20 20:50 Urine RBC (Auto) 48 /HPF 04/04/20 20:50 04/04/20 20:50 Catheterized Urine Urine Culture - Final NO GROWTH 2 DAYS 04/04/20 04/05/20 04/05/20 20:44 07:00 19:10 Creatine Kinase 80 Troponin I 0.616 0.306 Current Medication List Generic Name Dose Route Start Last Admin Trade Name Freq PRN Reason Stop Dose Admin Acetaminophen 650 mg 04/05/20 05:18 Tylenol 325 Mg Tablet PO 05/05/20 05:17 Q4HP PRN FEVER >101 Hydrocodone Bitart/Acetaminophen 1 tab 04/05/20 06:41 04/05/20 22:33 [place] 10-325 Mg Tablet PO 04/12/20 06:40 1 tab Q4HP PRN Administration FOR PAIN Albuterol/Ipratropium 3 ml 04/05/20 05:18 Duoneb 3 Ml Ampul NEB 05/05/20 05:17 RTQ4HP PRN SHORTNESS OF BREATH Heparin Sodium (Porcine) 5,000 unit 04/05/20 06:00 04/06/20 05:24 Heparin Inj 5,000 Units/Ml 1 Ml Vial SUBCUT 05/05/20 05:59 Not Given Q8 TY Piperacillin Sod/Tazobactam 100 mls @ 200 mls/hr 04/05/20 06:00 04/06/20 05:30 Sod 4.5 gm/ Sodium Chloride IV 04/12/20 05:59 200 mls/hr Q6 TY Administration Levothyroxine Sodium 0.15 mg 04/05/20 07:00 04/06/20 05:29 Synthroid 0.15 Mg Tablet PO 05/05/20 06:59 0.15 mg Q6AM TY Administration Ondansetron HCl 4 mg 04/05/20 05:18 Zofran Odt 4 Mg Tablet PO 05/05/20 05:17 Q6HP PRN FOR NAUSEA/VOMITING Sodium Chloride 2.5 ml 04/05/20 06:00 04/06/20 05:30 Saline Flush 2.5 Ml Monoject Prefil Syrin IV 05/05/20 05:59 2.5 ml Q8 TY Administration Discontinued Medications Generic Name Dose Route Start Last Admin Trade Name Wilberq PRN Reason Stop Dose Admin Famotidine 20 mg 04/04/20 21:04 04/04/20 21:32 Pepcid Inj/Pf 20 Mg/2 Ml Sdv IV 04/04/20 21:05 20 mg NOW ONE Administration Lactated Ringer's 1,000 mls @ 0 mls/hr 04/04/20 21:04 04/05/20 00:30 Lactated Ringers 1000 Ml Iv Soln IV Infused X 2 BAGS PRN Infusion THIS MED IS NOT "PRN" Wide Open Naloxone HCl 0.2 mg 04/05/20 05:23 04/05/20 06:04 Narcan Inj/Pf 0.4 Mg/1 Ml Sdv IV 04/05/20 05:24 0.2 mg NOW ONE Administration Piperacillin Sod/Tazobactam Sod 4.5 gm 04/04/20 21:08 04/04/20 21:31 Zosyn Inj 4.5 Gm Vial IV 04/04/20 21:09 4.5 gm IVBAG (ED) ONE Administration Piperacillin Sod/Tazobactam Sod Confirm 04/05/20 06:07 04/05/20 06:27 Zosyn Inj 4.5 Gm Vial Administered 04/05/20 06:08 Not Given Dose 4.5 gm IV .STK-MED ONE Assessment & Plan - Diagnosis (1) Elevated troponin I level Is this a current diagnosis for this admission?: Yes Plan: Although the patient has cardiac risk factors of sedentary lifestyle, hypertension, obesity and hyperlipidemia she does not have cardiac ischemic symptoms and is otherwise hemodynamically stable. Her EKG did not show ischemic changes either. Her elevated troponin is likely secondary to her overall medical condition given her hypotension, tachycardia and possible sepsis and consistent with a type II [place]. Recommendations: -Continue with current medical management for now. -Start baby aspirin. -Obtain echocardiogram to assess for systolic function and regional wall motion abnormalities. -The patient will need ischemic assessment once her medical problems are resolved, please let me know when she is ready to undergo stress testing. -We will discuss with you the results of her echocardiogram but will sign off the case for now.
[2020-04-06] MEDS ORDERED: LORAZEPAM 1 MG TABLET PO PRN (12:57)
[2020-04-06] MEDS ORDERED: HYDRALAZINE HCL INJ/PF 20 MG/1 ML SDV IV PRN (12:59)
[2020-04-06] MEDS ORDERED: (PENDING PHARMACY ID) (Losartan Potassium [Losartan Potassium] 100 MG) PO SCH (13:00)
--- NOTE | 2020-04-06 13:07 | XCELERA REPORT ---
[address] [address] Transthoracic Echocardiogram Report Name: RACHANA HODGE Age: 54 yrs Gender: Female : 1965 Patient Status: Inpatient Patient Location: [facility]^A Study Date: 04/06/2020 07:48 AM Height: 63 in Weight: 258 lb BSA: 2.2 m2 Procedure: A complete two-dimensional transthoracic echocardiogram was performed (2D, M-mode, spectral and color flow Doppler). The study was technically difficult with many images being suboptimal in quality. Reason For Study: NSTEMI, check LV EF and look for WMA Ordering Physician: PAT LEMA Performed By: Marcella Villarreal Interpretation Summary The left ventricle is normal in size. Left ventricular systolic function is normal. The Ejection Fraction estimate is 65-70%. Doppler measurements suggest normal left ventricular diastolic function. The left ventricular wall motion is normal. There is no thrombus. Trace MR, trace TR. MMode/2D Measurements & Calculations RVDd: 2.4 cm LVIDd: 4.9 cm FS: 36.0 % IVSd: 1.1 cm LVIDs: 3.2 cm EDV(Teich): 115.2 ml LVPWd: 1.0 cm ESV(Teich): 39.8 ml EF(Teich): 65.4 % Doppler Measurements & Calculations MV E max yareli: MV dec slope: Ao V2 max: LV V1 max P.1 cm/sec 647.7 cm/sec2 128.1 cm/sec 5.9 mmHg MV A max yareli: MV dec time: 0.20 secAo max PG: LV V1 max: 128.6 cm/sec 6.6 mmHg 121.2 cm/sec MV E/A: 1.0 PA V2 max: TR max yareli: 95.1 cm/sec 228.6 cm/sec PA max P.6 mmHg TR max P.9 mmHg Left Ventricle The left ventricle is normal in size. Left ventricular systolic function is normal. The Ejection Fraction estimate is 65-70%. Doppler measurements suggest normal left ventricular diastolic function. The left ventricular wall motion is normal. There is no thrombus. Right Ventricle The right ventricle is normal in size, thickness and function. The right ventricular systolic function is normal. Atria The right atrium is normal. The left atrial size is normal. The interatrial septum is difficult to see, but appears to be grossly normal. Mitral Valve The mitral valve leaflets are sclerotic, but show no functional abnormalities. There is a trace amount of mitral regurgitation. Aortic Valve The aortic valve is sclerotic, but shows no functional abnormality. No aortic regurgitation is present. Tricuspid Valve The tricuspid is normal in structure and function. There is a trace or physiologic amount of tricuspid regurgitation. Pulmonic Valve The pulmonic valve is normal in structure and function. There is no pulmonic valvular regurgitation. Effusions There is no pericardial effusion. : PAT LEMA, Abel
[2020-04-06 13:08] LABS: ARTERIAL BLOOD BASE EXCESS 4.5 mmol/L; ARTERIAL BLOOD HCO3 29.1 mmol/L (20-24); ARTERIAL BLOOD O2 SATURATION 94.4 % (94-98); ARTERIAL BLOOD PCO2 43.2 mmHg (35-45); ARTERIAL BLOOD PH 7.45 (7.35-7.45); ARTERIAL BLOOD TOTAL CO2 30.4 mmol/L (21-25)
[2020-04-06 13:11] LABS: ARTERIAL BLOOD FIO2 4LPM
[2020-04-06] MEDS: DIVALPROEX SODIUM 500 MG TAB.SR.24H PO SCH ×2 (13:50→17:13)
[2020-04-06] MEDS: RISPERIDONE 1 MG TABLET PO SCH ×2 (13:50→17:13)
[2020-04-06] MEDS: OXYCODONE HCL IR 5 MG TABLET PO PRN (13:51)
[2020-04-06] MEDS: LOSARTAN POTASSIUM 50 MG TABLET PO SCH (13:51)
--- NOTE | 2020-04-06 18:29 | PDOC PROGRESS REPORT ---
Subjective Progress Note for:: 04/06/20 Subjective:: She is feeling better today. She still feels SOB, stating that her chest feels "tight" like she needs a breathing treatment. Denies abdominal pain - states that this resolved after she had a BM today. Reason For Visit: ACUTE HYPERCAPNIC RESPIRATORY FAILURE,SEPSIS Physical Exam Vital Signs: Temp Pulse Resp BP Pulse Ox 98.3 F 70 16 168/86 H 98 04/06/20 15:28 04/06/20 15:28 04/06/20 15:28 04/06/20 15:28 04/06/20 15:28 Intake & Output 04/05/20 04/06/20 04/07/20 06:59 06:59 06:59 Intake Total 1999 222 492 Output Total 900 250 Balance 19998 242 Weight 117.2 kg General appearance: PRESENT: no acute distress, cooperative Eye exam: ABSENT: scleral icterus Mouth exam: PRESENT: moist Throat exam: ABSENT: post pharyngeal erythema Neck exam: ABSENT: JVD Respiratory exam: PRESENT: clear to auscultation rashaad, unlabored. ABSENT: accessory muscle use, chest wall tenderness, crackles, rhonchi, tachypnea, wheezes Cardiovascular exam: PRESENT: RRR GI/Abdominal exam: PRESENT: normal bowel sounds, soft. ABSENT: tenderness Extremities exam: ABSENT: pedal edema Neurological exam: PRESENT: alert, awake, oriented to person, oriented to place, oriented to time, oriented to situation Psychiatric exam: PRESENT: appropriate affect, normal mood Skin exam: ABSENT: rash Results Laboratory Results: 04/06/20 05:08 04/06/20 05:08 04/06/20 04/06/20 04/06/20 05:08 05:08 05:08 WBC 6.6 RBC 3.07 L Hgb 11.5 L Hct 33.1 L MCV 108 H MCH 37.4 H MCHC 34.8 RDW 12.7 Plt Count 121 L Seg Neutrophils % 60.8 Carbonic Acid HCO3/H2CO3 Ratio ABG pH ABG pCO2 ABG pO2 ABG HCO3 ABG O2 Saturation ABG Base Excess FiO2 Sodium 140.3 Potassium 4.7 Chloride 103 Carbon Dioxide 32 H Anion Gap 5 BUN 12 Creatinine 0.66 Est GFR ( Amer) > 60 Glucose 107 Calcium 8.3 L Total Bilirubin 0.9 AST 33 Alkaline Phosphatase 56 Total Protein 5.4 L Albumin 3.2 L TSH 0.17 L 04/06/20 12:40 WBC RBC Hgb Hct MCV MCH MCHC RDW Plt Count Seg Neutrophils % Carbonic Acid 1.30 HCO3/H2CO3 Ratio 22:1 ABG pH 7.45 ABG pCO2 43.2 ABG pO2 69.0 L ABG HCO3 29.1 H ABG O2 Saturation 94.4 ABG Base Excess 4.5 FiO2 4LPM Sodium Potassium Chloride Carbon Dioxide Anion Gap BUN Creatinine Est GFR ( Amer) Glucose Calcium Total Bilirubin AST Alkaline Phosphatase Total Protein Albumin TSH 04/04/20 20:50 Catheterized Urine Urine Culture - Final NO GROWTH 2 DAYS 04/04/20 04/05/20 04/05/20 20:44 07:00 19:10 Creatine Kinase 80 Troponin I 0.616 0.306 Impressions: Chest X-Ray 04/04/20 21:02 IMPRESSION: No evidence of acute cardiopulmonary disease. Head CT 04/04/20 21:02 IMPRESSION: 1. No acute intracranial findings. Assessment and Plan - Diagnosis (1) IVET (acute kidney injury) Is this a current diagnosis for this admission?: Yes (2) Acute hypercapnic respiratory failure Is this a current diagnosis for this admission?: Yes (3) Acute metabolic encephalopathy Is this a current diagnosis for this admission?: Yes (4) Anxiety and depression Is this a current diagnosis for this admission?: Yes (6) Elevated troponin I level Is this a current diagnosis for this admission?: Yes (7) Hypotension Qualifiers: Hypotension type: unspecified hypotension type Qualified Code(s): I95.9 - Hypotension, unspecified Is this a current diagnosis for this admission?: Yes (8) Poisoning by opiate AND/OR related narcotic Is this a current diagnosis for this admission?: Yes (9) Opioid dependence Is this a current diagnosis for this admission?: Yes - Plan Summary Summary: RACHANA HODGE is a 54 year old female with past medical history of asthma, hypothyroidism, hypertension, hyperlipidemia, depression, bipolar disorder who was brought to the ED on 04/04/2020 due to altered mental status. Per her and sons, she was witnessed to have several episodes of asymmetric limb jerking at home and she appeared to have "stopped breathing." EMS was called and she was noted to have shallow breathing and was started on BiPAP. In the ED she was noted to be borderline hypotensive to 90s over 50s, heart rate of 88. Venous blood gas showed pH of 7.06, PCO2 111.2. Acute Hypercapnic Respiratory Failure Hypoventilation Accidental Opioid Overdose Respiratory acidosis resolved with BIPAP and Narcan administration. Today, she tells me that she "doubled" the doses of all her home pain medications on the night of the above incident due to worse than usual pain, likely causing an accidental overdose. This patient is at high risk for future similar episodes due to multiple concomitant prescriptions known to cause respiratory depression, including BZD/opioids. She should be discharged with Rx for Narcan, and should follow up closely with pain management for adjusting of medication doses. She has been advised that she should not operate heavy machinery and/or drive while on these medications, and that she should absolutely never take more than prescribed. Her home medication doses have been adjusted while inpatient. Possible EDILSON She told me that a few years ago she was using a CPAP machine to help her breathe but was told that she can stop using it because she did not need it. However, she has frequent night-time awakenings and feels tired all day. Based on her body habitus and history, she likely has EDILSON +/- OHS and needs a repeat sleep study as outpatient. Asthma Not in acute exacerbation. DuoNebs PRN Polypharmacy Chronic Opioid Use Chronic Benzodiazepine Use Per review of her medication list, she is also on diazepam, temazepam, hydromorphone which can worsen hypoventilation. She does have a history of sim ilar episode in 2017. She follows with a pain management clinic at [place]. See plan above. Essential HTN Restart home medications. IVET vs ATN Likely ATN due to hypotension in the s/o overdose, now resolved. NSTEMI, type II Likely demand ischemia in the s/o hypotension/overdose and respiratory failure. TTE showed no WMA, normal EF. Cardiology consulted, recommend stress test tomorrow AM. NPO past MN. Hypoxemia Unclear etiology. She tells me that she used to be on home O2 therapy for chronic hypoxemia which she believes was due to asthma, but then was told that she doesn't need home O2 any more and it was taken away. Here, she has been requiring O2. Will wean O2 and perform ambulatory saturation to see if she is still hypoxemic. - Time Time Spent with patient: 35 or more minutes Anticipated Discharge Disposition: Home, Self Care Anticipated Discharge Timeframe: within 24 hours
[2020-04-06] MEDS: GABAPENTIN 300 MG CAPSULE PO SCH (21:05)
[2020-04-06] MEDS ORDERED: MONTELUKAST SODIUM 10 MG TABLET PO SCH (22:00)
[2020-04-07] MEDS: OXYCODONE HCL IR 5 MG TABLET PO PRN (05:03)
[2020-04-07] MEDS: LEVOTHYROXINE SODIUM 0.15 MG TABLET PO SCH (05:03)
[2020-04-07] MEDS: HEPARIN SOD (PORCINE) 5,000 UNIT/ML 1 ML VIAL SUBCUT SCH ×2 (05:07→14:21)
[2020-04-07] MEDS ORDERED: INFLUENZA QUAD (6MOS+) 2020-21 VAC 0.5 ML SYR IM ONE (08:00)
[2020-04-07] MEDS: LOSARTAN POTASSIUM 50 MG TABLET PO SCH (10:26)
[2020-04-07] MEDS: RISPERIDONE 1 MG TABLET PO SCH (10:26)
[2020-04-07] MEDS: GABAPENTIN 300 MG CAPSULE PO SCH (10:26)
[2020-04-07] MEDS: DIVALPROEX SODIUM 500 MG TAB.SR.24H PO SCH (10:27)
--- NOTE | 2020-04-07 13:41 | DRAGON STRESS TEST REPORT ---
Name: Larisa Hutton : Jun Date: APR 18 The patient underwent a stress/rest, single isotope SPECT Imaging with pharmacological stress and gated SPECT imaging on for evaluation of. The patient underwent infusion of regadnoson 0.4mg IV using the standard protocol. The heart rate was 77 beats per minute at baseline and increased to 102 beats during the infusion of regadenoson. The resting blood pressure was 163/84 mm/Hg and decreased to 118/62 mm/Hg, which is a normal response. The patient complained of no symptoms during the procedure. The resting electrocardiogram demonstrated normal sinus rhythm. Stress electrocardiogram is non-diagnostic in the setting of pharmacological stress. Myocardial perfusion imaging was performed at rest following the injection of 15.84 mCi of sestamibi. At peak pharmacolgic effect, the patient was injected with 44.4 mCi of sestamibi. Gating post-stress tomographic imaging was performed 60 minutes after stress. Findings The overall quality of the study is excellent. Raw images demonstrate no significant artifacts. Left ventricular cavity is noted to be normal on the rest and stress studies. Resting SPECT images demonstrate homogeneous tracer distribution throughout the myocardium. The stress images reveal homogeneous tracer distribution throughout the myocardium. Gated SPECT imaging reveals normal myocardial thickening and wall motion. The left ventricular ejection fraction was calculated to be 54% Impression -Myocardial perfusion imaging is normal. -There is no scintigraphic evidence of ischemia or infarct. -Overall left ventricular systolic function was normal without wall motion abnormalities. -There are no prior studies for comparison. MTDD
[2020-04-07] MEDS ORDERED: OXYCODONE HCL IR 5 MG TABLET PO PRN (14:19)
[2020-04-07 15:03] VITALS: BP 114/53
[2020-04-07] MEDS ORDERED: REGADENOSON INJ 0.4 MG/5 ML DISP.SYRIN IV ONE (16:22)
--- NOTE | 2020-04-07 17:36 | PDOC DISCHARGE SUMMARY ---
Impression - Admit/DC Date/PCP Admission Date/Primary Care Provider: 04/05/20 04:19 ERIC PRIDE MD Discharge Date: 04/07/20 - Discharge Diagnosis (1) IVET (acute kidney injury) Is this a current diagnosis for this admission?: Yes (2) Acute hypercapnic respiratory failure Is this a current diagnosis for this admission?: Yes (3) Acute metabolic encephalopathy Is this a current diagnosis for this admission?: Yes (4) Anxiety and depression Is this a current diagnosis for this admission?: Yes (5) CO2 retention Is this a current diagnosis for this admission?: Yes (6) Elevated troponin I level Is this a current diagnosis for this admission?: Yes (7) Hypotension Is this a current diagnosis for this admission?: Yes (8) Poisoning by opiate AND/OR related narcotic Is this a current diagnosis for this admission?: Yes (9) Opioid dependence Is this a current diagnosis for this admission?: Yes - Assessment Summary: RACHANA HODGE is a 54 year old female with past medical history of asthma, hypothyroidism, hypertension, hyperlipidemia, depression, bipolar disorder who was brought to the ED on 04/04/2020 due to altered mental status. Per her and sons, she was witnessed to have several episodes of asymmetric limb jerking at home and she appeared to have "stopped breathing." EMS was called and she was noted to have shallow breathing and was started on BiPAP. In the ED she was noted to be borderline hypotensive to 90s over 50s, heart rate of 88. Venous blood gas showed pH of 7.06, PCO2 111.2. Acute Hypercapnic Respiratory Failure Hypoventilation Accidental Opioid Overdose Respiratory acidosis resolved with BIPAP and Narcan administration. She tells me that she "doubled" the doses of all her home pain medications on the night of the above incident due to worse than usual pain, likely causing an accidental overdose. This patient is at high risk for future similar episodes due to multiple concomitant prescriptions known to cause respiratory depression, including BZD/opioids. She will be discharged with Rx for Narcan, and should follow up closely with pain management for adjusting of medication doses. She has been advised that she should not operate heavy machinery and/or drive while on these medications, and that she should absolutely never take more than prescribed. Her home medication doses have been adjusted while inpatient. Possible EDILSON She told me that a few years ago she was using a CPAP machine to help her breathe but was told that she can stop using it because she did not need it. However, she has frequent night-time awakenings and feels tired all day. Based on her body habitus and history, she likely has EDILSON +/- OHS and needs a repeat sleep study as outpatient. Asthma Not in acute exacerbation. Polypharmacy Chronic Opioid Use Chronic Benzodiazepine Use Per review of her medication list, she is also on diazepam, temazepam, hydromorphone which can worsen hypoventilation. She does have a history of similar episode in 2017. She follows with a pain management clinic at [facility]. See plan above. Essential HTN Restart home medications. IVET vs ATN Likely ATN due to hypotension in the s/o overdose, now resolved. NSTEMI, type II Likely demand ischemia in the s/o hypotension/overdose and respiratory failure. TTE showed no WMA, normal EF. Cardiology consulted, recommend stress test which was normal. - Additional Information Resuscitation Status: Full Code Discharge Activity: Activity As Tolerated Referrals: ERIC PRIDE MD [Primary Care Provider] - 04/13/20 2:30 pm Prescriptions: Naloxone HCl [Narcan] 4 mg NS ONCE PRN #1 spray PRN Reason: overdose Home Medications: Butalb/Acetaminophen/Caffeine [Fioricet 50-300-40 mg Capsule] 1 cap PO ASDIR PRN 04/05/20 Citalopram Hydrobromide [Citalopram HBr] 40 mg PO DAILY 04/05/20 Divalproex Sodium [Depakote ER 500 mg Tab.sr] 500 mg PO BID 04/05/20 Eszopiclone 3 mg PO HSP PRN 04/05/20 Gabapentin Enacarbil [Horizant] 600 mg PO Q12 04/05/20 Galcanezumab-Gnlm [Emgality Syringe] 120 mg INJ .QMONTHLY 04/05/20 Levothyroxine Sodium [Synthroid] 125 mcg PO Q6AM 04/05/20 Lorazepam [Ativan 1 mg Tablet] 1 mg PO DAILYP PRN 04/05/20 Losartan Potassium 100 mg PO DAILY 04/05/20 Metaxalone [Metaxall] 800 mg PO Q8 04/05/20 Metformin HCl [Metformin HCl ER] 500 mg PO QAM 04/05/20 Montelukast Sodium [Singulair 10 mg Tablet] 10 mg PO QHS 04/05/20 Oxycodone HCl [Oxy-Ir 5 mg Tablet] 10 mg PO Q12HP PRN 04/05/20 Oxycodone Myristate [Xtampza ER] 18 mg PO BID 04/05/20 Potassium Chloride [Klor-Con 10 Meq Tablet ER] 10 meq PO DAILY 04/05/20 Promethazine HCl [Phenergan 25 mg Tablet] 25 mg PO BIDP PRN 04/05/20 Risperidone [Risperdal 1 mg Tablet] 3 mg PO BID 04/05/20 Rosuvastatin Calcium [Crestor] 10 mg PO DAILY 04/05/20 Naloxone HCl [Narcan] 4 mg NS ONCE PRN #1 spray 04/07/20 History of Present Illiness History of Present Illness: RACHANA HODGE is a 54 year old female Physical Exam Vital Signs: Temp Pulse Resp BP Pulse Ox 98.1 F 79 18 114/53 L 98 04/07/20 14:49 04/07/20 14:49 04/07/20 14:49 04/07/20 14:49 04/07/20 14:49 Intake & Output 04/06/20 04/07/20 04/08/20 06:59 06:59 06:59 Intake Total 222 974 480 Output Total 900 1202 250 Balance -678 -228 230 Weight 117.2 kg 114.7 kg Results Laboratory Results: WBC 6.6 10^3/uL (4.0-10.5) 04/06/20 05:08 RBC 3.07 10^6/uL (3.72-5.28) L 04/06/20 05:08 Hgb 11.5 g/dL (12.0-15.5) L 04/06/20 05:08 Hct 33.1 % (36.0-47.0) L 04/06/20 05:08 MCV 108 fl (80-97) H 04/06/20 05:08 MCH 37.4 pg (27.0-33.4) H 04/06/20 05:08 MCHC 34.8 g/dL (32.0-36.0) 04/06/20 05:08 RDW 12.7 % (11.5-14.0) 04/06/20 05:08 Plt Count 121 10^3/uL (150-450) L 04/06/20 05:08 Lymph % (Auto) 19.5 % (13-45) 04/06/20 05:08 [place] % (Auto) 17.2 % (3-13) H 04/06/20 05:08 Eos % (Auto) 2.0 % (0-6) 04/06/20 05:08 Baso % (Auto) 0.5 % (0-2) 04/06/20 05:08 Absolute Neuts (auto) 4.0 10^3/uL (1.7-8.2) 04/06/20 05:08 Absolute Lymphs (auto) 1.3 10^3/uL (0.5-4.7) 04/06/20 05:08 Absolute Monos (auto) 1.1 10^3/uL (0.1-1.4) 04/06/20 05:08 Absolute Eos (auto) 0.1 10^3/uL (0.0-0.6) 04/06/20 05:08 Absolute Basos (auto) 0.0 10^3/uL (0.0-0.2) 04/06/20 05:08 Seg Neutrophils % 60.8 % (42-78) 04/06/20 05:08 Toxic Granulation SLIGHT 04/04/20 20:44 WBC Morphology Comment MACROCYTIC NORMOCHRO 04/04/20 20:44 Clumped Platelets PRESENT 04/04/20 20:44 Platelet Comment ADEQUATE 04/04/20 20:44 Macrocytosis 2+ 04/04/20 20:44 Stomatocytes 3+ 04/04/20 20:44 PT 13.6 SEC (11.4-15.4) 04/04/20 20:44 INR 1.01 04/04/20 20:44 APTT 29.6 SEC (23.5-35.8) 04/04/20 20:44 Carbonic Acid 1.30 mmol/L (1.05-1.35) 04/06/20 12:40 HCO3/H2CO3 Ratio 22:1 04/06/20 12:40 ABG pH 7.45 (7.35-7.45) 04/06/20 12:40 ABG pCO2 43.2 mmHg (35-45) 04/06/20 12:40 ABG pO2 69.0 mmHg (80-100) L 04/06/20 12:40 ABG HCO3 29.1 mmol/L (20-24) H 04/06/20 12:40 ABG Total CO2 30.4 mmol/L (21-25) H 04/06/20 12:40 ABG O2 Saturation 94.4 % (94-98) 04/06/20 12:40 ABG Base Excess 4.5 mmol/L 04/06/20 12:40 VBG pH 7.06 (7.30-7.42) L* 04/04/20 23:39 VBG pCO2 111.2 mmHg (35-63) H* 04/04/20 23:39 VBG HCO3 30.6 mmol/L (20-32) 04/04/20 23:39 VBG Base Excess -2.4 mmol/L 04/04/20 23:39 FiO2 4LPM 04/06/20 12:40 Sodium 140.3 mmol/L (137-145) 04/06/20 05:08 Potassium 4.7 mmol/L (3.6-5.0) 04/06/20 05:08 Chloride 103 mmol/L (98-107) 04/06/20 05:08 Carbon Dioxide 32 mmol/L (22-30) H 04/06/20 05:08 Anion Gap 5 (5-19) 04/06/20 05:08 BUN 12 mg/dL (7-20) 04/06/20 05:08 Creatinine 0.66 mg/dL (0.52-1.25) 04/06/20 05:08 Est GFR ( Amer) > 60 (>60) 04/06/20 05:08 Est GFR (MDRD) Non-Af > 60 (>60) 04/06/20 05:08 Glucose 107 mg/dL (75-110) 04/06/20 05:08 POC Glucose 88 mg/dL (70-110) 04/04/20 20:14 Lactic Acid 0.8 mmol/L (0.7-2.1) 04/05/20 09:58 Calcium 8.3 mg/dL (8.4-10.2) L 04/06/20 05:08 Phosphorus 7.3 mg/dL (2.5-4.5) H 04/04/20 20:44 Magnesium 1.8 mg/dL (1.6-2.3) 04/05/20 07:00 Total Bilirubin 0.9 mg/dL (0.2-1.3) 04/06/20 05:08 Direct Bilirubin 0.3 mg/dL (0.0-0.4) 04/06/20 05:08 Neonat Total Bilirubin Not Reportable 04/06/20 05:08 Neonat Direct Bilirubin Not Reportable 04/06/20 05:08 Neonat Indirect Bili Not Reportable 04/06/20 05:08 AST 33 U/L (14-36) 04/06/20 05:08 ALT 92 U/L (<35) H 04/06/20 05:08 Alkaline Phosphatase 56 U/L (38-126) 04/06/20 05:08 Ammonia 18.0 umol/L (9-33) 04/05/20 07:00 Creatine Kinase 80 U/L (30-135) 04/04/20 20:44 Troponin I 0.306 ng/mL 04/05/20 19:10 Total Protein 5.4 g/dL (6.3-8.2) L 04/06/20 05:08 Albumin 3.2 g/dL (3.5-5.0) L 04/06/20 05:08 Lipase 47.4 U/L (23-300) 04/05/20 07:00 TSH 0.17 uIU/mL (0.47-4.68) L 04/06/20 05:08 Free T4 0.96 ng/dL (0.78-2.19) 04/05/20 07:00 Cortisol AM Sample 8.34 ug/dL (4.46-22.7) 04/05/20 07:00 Urine Color YELLOW 04/04/20 20:50 Urine Appearance CLEAR 04/04/20 20:50 Urine pH 5.0 (5.0-9.0) 04/04/20 20:50 Ur Specific [place] 1.060 04/04/20 20:50 Urine Protein 30 mg/dL (NEGATIVE) H 04/04/20 20:50 Urine Glucose (UA) NEGATIVE mg/dL (NEGATIVE) 04/04/20 20:50 Urine Ketones NEGATIVE mg/dL (NEGATIVE) 04/04/20 20:50 Urine Blood SMALL (NEGATIVE) H 04/04/20 20:50 Urine Nitrite NEGATIVE (NEGATIVE) 04/04/20 20:50 Urine Bilirubin NEGATIVE (NEGATIVE) 04/04/20 20:50 Urine Urobilinogen NEGATIVE mg/dL (<2.0) 04/04/20 20:50 Ur Leukocyte Esterase NEGATIVE (NEGATIVE) 04/04/20 20:50 Urine WBC (Auto) 3 /HPF 04/04/20 20:50 Urine RBC (Auto) 48 /HPF 04/04/20 20:50 Squamous Epi Cells Auto <1 /HPF 04/04/20 20:50 Urine Mucus (Auto) RARE /LPF 04/04/20 20:50 Urine Ascorbic Acid NEGATIVE (NEGATIVE) 04/04/20 20:50 Salicylates < 1.0 mg/dL (2.0-20.0) L 04/04/20 20:44 Urine Opiates Screen UNCONFIRMED POSITIVE 04/04/20 20:50 Urine Methadone Screen NEGATIVE 04/04/20 20:50 Acetaminophen < 10 ug/mL (10-30) L 04/04/20 20:44 Ur Barbiturates Screen UNCONFIRMED POSITIVE 04/04/20 20:50 Ur Phencyclidine Scrn NEGATIVE 04/04/20 20:50 Ur Amphetamines Screen NEGATIVE 04/04/20 20:50 U Benzodiazepines Scrn NEGATIVE 04/04/20 20:50 Urine Cocaine Screen NEGATIVE 04/04/20 20:50 U Marijuana (THC) Screen NEGATIVE 04/04/20 20:50 Serum Alcohol < 10 mg/dL (NONE DETECTED) 04/04/20 20:44 Slides for Path Review PATHOLOGIST REVIEWED 04/04/20 20:44 04/05/20 04/05/20 07:00 19:10 Troponin I 0.616 0.306 Impressions: Chest X-Ray 04/04/20 21:02 IMPRESSION: No evidence of acute cardiopulmonary disease. Head CT 04/04/20 21:02 IMPRESSION: 1. No acute intracranial findings. Stroke Is this a Stroke Patient?: No Acute Heart Failure Is this a Heart Failure Patient?: No
== END 2020-04-07 16:58 | disposition home or self-care (01) | DRG 917 ==
LOC: ER 20:00 → EH 04-05 04:19 → 3W 04-05 13:06
PROVIDERS: ADMIT Internal Medicine; ATTEND Hospitalist
PROC: 5A09457 Assistance with Respiratory Ventilation, 24-96 Consecutive Hours, Continuous Positive Airway Pressure (ICD-10-PCS; principal; 2020-04-05)
PROC: B24BZZ4 Ultrasonography of Heart with Aorta, Transesophageal (ICD-10-PCS; 2020-04-06)
DX: T40.2X1A Poisoning by other opioids, accidental (unintentional), initial encounter (principal); G93.41 Metabolic encephalopathy; J96.02 Acute respiratory failure with hypercapnia; N17.0 Acute kidney failure with tubular necrosis; I21.A1 Myocardial infarction type 2; G92 Toxic encephalopathy; E87.2 Acidosis; F11.20 Opioid dependence, uncomplicated; Z68.41 Body mass index [BMI] 40.0-44.9, adult; F32.9 Major depressive disorder, single episode, unspecified; F41.9 Anxiety disorder, unspecified; I95.9 Hypotension, unspecified; E03.9 Hypothyroidism, unspecified; I10 Essential (primary) hypertension; E78.5 Hyperlipidemia, unspecified; F31.9 Bipolar disorder, unspecified; Y92.009 Unspecified place in unspecified non-institutional (private) residence as the place of occurrence of the external cause; K21.9 Gastro-esophageal reflux disease without esophagitis; M79.7 Fibromyalgia; F41.1 Generalized anxiety disorder; G47.33 Obstructive sleep apnea (adult) (pediatric); E66.01 Morbid (severe) obesity due to excess calories; J45.909 Unspecified asthma, uncomplicated; Z79.891 Long term (current) use of opiate analgesic; Z79.84 Long term (current) use of oral hypoglycemic drugs; Z79.890 Hormone replacement therapy; Z88.6 Allergy status to analgesic agent; Z88.8 Allergy status to other drugs, medicaments and biological substances; Z84.89 Family history of other specified conditions; Z72.89 Other problems related to lifestyle
CPT/HCPCS: 36415; 36600; 70450; 71045; 78452; 80053; 80307; 81001; 82140; 82533; 82550; 82803; 82962; 83605; 83690; 83735; 84100; 84439; 84443; 84484; 85025; 85027; 85610; 85730; 87040; 87070; 87086; 93005; 93010; 93017; 93306; 94660; 96361; 96365; 96375; 99285; A9500; J1644; J2310; J2543; J2785; J3490; J7050; J7120; Q9969; S0028

== ENCOUNTER 2020-04-18 18:06 | Emergency (ER) | payer OTHER ==
[2020-04-18] MEDS ORDERED: KETOROLAC TROMETHAMINE 60 MG/2 ML SDV IM ONE (18:23)
--- NOTE | 2020-04-18 18:26 | ER Document Report ---
HPI - HPI Time Seen by Provider: 04/18/20 18:17 Notes: 54-year-old female presents to the emergency room for shoulder pain that has become progressively worse over the last 3 weeks. Patient states she was hospitalized for a UTI, is just being in the bed she states that her shoulder had become aggravated. She states she has tried Tylenol without for relief. Patient denies any fall or trauma. She does state that she has had 10 surgeries on her right upper extremity and she is also had bone spurs on her right shoulder. Patient does have appointment tomorrow to see her primary care provider but she was having a lot of pain so she came to the emergency room tonight. She reports pain is 4 out of 5, throbbing and achy. Denies any numbness or tingling down bilateral upper extremities. Denies fevers, chills, chest pain,palpitations, shortness of breath, dyspnea, nausea, vomiting, diarrhea, abdominal pain, hematuria,blurred vision, double vision, loss of vision, speech changes, LH, dizziness, syncope, headaches, wheezing, ST, URI, neck pain, weakness, bowel or bladder dysfunction, saddle anesthesia, numbness or tingling in bilateral upper or lower extremities equally, muscle paralysis, weakness in bilateral upper or lower extremities equally or rash. Denies IV drug use. MEDICATIONS: I agree with the patient medications as charted by the RN. ALLERGIES: I agree with the allergies as charted by the RN. PAST MEDICAL HISTORY/PAST SURGICAL HISTORY: Reviewed and agree as charted by RN. SOCIAL HISTORY: Reviewed and agree as charted by RN. FAMILY HISTORY: No significant familial comorbid conditions directly related to patient complaint EXAM: Reviewed vital signs as charted by RN. REVIEW OF SYSTEMS:reviewed vital signs by RN CONSTITUTIONAL : Denies fever, chills, or sweats. Denies recent illness. EENT: Denies eye, ear, throat, or mouth pain or symptoms. Denies nasal or sinus congestion or discharge. Denies throat, tongue, or mouth swelling or difficulty swallowing. CARDIOVASCULAR: Denies chest pain. Denies palpitations or racing or irregular heart beat. Denies ankle edema. RESPIRATORY: Denies cough, cold, or chest congestion. Denies shortness of breath, difficulty breathing, or wheezing. GASTROINTESTINAL: Denies abdominal pain or distention. Denies nausea, vomiting, or diarrhea. Denies blood in vomitus, stools, or per rectum. Denies black, tarry stools. Denies constipation. GENITOURINARY: Denies difficulty urinating, painful urination, burning, frequency, blood in urine, or discharge. FEMALE GENITOURINARY: Denies vaginal bleeding, heavy or abnormal periods, irregular periods. Denies vaginal discharge or odor. MUSCULOSKELETAL: reports right shoulder pain. Denies back or neck pain or stiffness. Denies joint pain or swelling. SKIN: Denies rash, lesions or sores. HEMATOLOGIC : Denies easy bruising or bleeding. LYMPHATIC: Denies swollen, enlarged glands. NEUROLOGICAL: Denies confusion or altered mental status. Denies passing out or loss of consciousness. Denies dizziness or lightheadedness. Denies headache. Denies weakness or paralysis or loss of use of either side. Denies problems with gait or speech. Denies sensory loss, numbness, or tingling. Denies seizures. PSYCHIATRIC: Denies anxiety or stress. Denies depression, suicidal ideation, or homicidal ideation. ALL OTHER SYSTEMS REVIEWED AND NEGATIVE. PHYSICAL EXAMINATION: GENERAL: Well-appearing, well-nourished and in no acute distress. HEAD: Atraumatic, normocephalic. EYES: Pupils equal round and reactive to light, extraocular movements intact, conjunctiva are normal. ENT: Nares patent, oropharynx clear without exudates. Moist mucous membranes. NECK: Normal range of motion, supple without lymphadenopathy LUNGS: Breath sounds clear to auscultation bilaterally and equal. No wheezes rales or rhonchi. HEART: Regular rate and rhythm without murmurs ABDOMEN: Soft, nontender, nondistended abdomen. No guarding, no rebound. No masses appreciated. Female : deferred Musculoskeletal: Normal range of motion, no pitting or edema. No cyanosis. right shoulder pain with adduction and flexion. no pain with supination, pronation, extension. Sludge Filtration Operator + 2 BUE equally. APROM in shoulder. DTR +2 in BUE equally. Noted crepitus with APROM in elbow. negative drop arm, neer sign, dennis test bilaterally. slightly positive impingement sign all on right. No vascular compromise. Neck with full APROM, no cervical spinal tenderness. No te nderness over clavicles or step off noted bilaterally. Strength 5 out of 5 in bilateral upper extremities equally. NEUROLOGICAL: Cranial nerves grossly intact. Normal speech, normal gait. Normal sensory, motor exams PSYCH: Normal mood, normal affect. SKIN: Warm, Dry, normal turgor, no rashes or lesions noted. Dictation was performed using [employer] voice recognition software - REPRODUCTIVE Reproductive: DENIES: : Past Medical History - General Information source: Patient - Social History Smoking Status: Unknown if Ever Smoked Family History: Reviewed & Not Pertinent, CAD - Past Medical History Cardiac Medical History: Reports: Hx Hypertension Denies: Hx Pulmonary Embolism Pulmonary Medical History: Reports: Hx Asthma, Hx Bronchitis, Hx Pneumonia - received the pneumovax and influenza vaccine in April Denies: Hx Tuberculosis Neurological Medical History: Reports: Hx Migraine - awaiting an ablation, sees pain management in [place], on Dilaudid 4mg Endocrine Medical History: Reports: Hx Hypothyroidism GI Medical History: Reports: Hx Gastroesophageal Reflux Disease, Hx Ulcer - Stomach Musculoskeletal Medical History: Reports Hx Arthritis, Reports Hx Fibromyalgia Psychiatric Medical History: Reports: Hx Bipolar Disorder, Hx Depression - anxiety Past Surgical History: Reports: Hx Cardiac Catheterization - X 2, Hx Cholecystectomy, Hx Hysterectomy, Hx Orthopedic Surgery - r arm x 10, Hx Thyroid Surgery - thyroidectomy. Denies: Hx Pacemaker - Immunizations Immunizations up to date: Yes Hx Diphtheria, Pertussis, Tetanus Vaccination: Yes Hx Pneumococcal Vaccination: 02/28/10 Vertical Provider Document - CONSTITUTIONAL Agree With Documented VS: Yes Exam Limitations: No Limitations General Appearance: WD/WN - INFECTION CONTROL TRAVEL OUTSIDE OF THE [place] IN LAST 30 DAYS: No Course - Re-evaluation Re-evalutation: 04/18/20 20:05 Afebrile vital stable no distress. Nurses notes reviewed. X-ray of right shoulder shows a AC grade 1 ligamentous injury per radiology. No acute fracture dislocation or foreign body. Patient placed in a sling as treatment. Given muscle relaxers anti-inflammatories and a sixpack of [place] to go. Advised to not drink, drive or operate heavy machinery while taking medication as it can cause sedation or impairment of cognitive function. Advised to follow-up with adjudication specialist within the next 24 to 48 hours. Rice therapy. After performing a Medical Screening Examination, I estimate there is LOW risk for OPEN FRACTURE, COMPARTMENT SYNDROME, DEEP VENOUS THROMBOSIS, ACUTE TENDON RUPTURE, or NEUROVASCULAR INJURY thus I consider the discharge disposition reasonable. I have reevaluated this patient multiple times and no significant life threatening changes are noted. The patient and I have discussed the diagnosis and risks, and we agree with discharging home to closely follow-up with their primary doctor or the referral orthopedist with the understanding that symptoms and presentations can change. We also discussed returning to the Emergency Department immediately if new or worsening symptoms occur. We have discussed the symptoms which are most concerning (e.g., changing or worsening pain, numbness, weakness) that necessitate immediate return 04/18/20 20:05 - Vital Signs Vital signs: Temp Pulse Resp BP Pulse Ox 98.0 F 93 18 157/107 H 95 04/18/20 18:12 04/18/20 18:12 04/18/20 18:12 04/18/20 18:12 04/18/20 18:12 Discharge - Discharge Clinical Impression: Right shoulder pain Qualifiers: Chronicity: acute Qualified Code(s): M25.511 - Pain in right shoulder Condition: Stable Disposition: HOME, SELF-CARE Instructions: Muscle Relaxers ([facility]), Muscle Strain ([facility]), Myalagia (Muscle Pain) ([facility]), Exercise Program for the Shoulder ([facility]), Shoulder Injury ([facility]), Sling as Treatment ([facility]) Referrals: ERIC PRIDE MD [Primary Care Provider] - Follow up as needed NASIR HARRIS DO [ACTIVE STAFF] - Follow up as needed
--- NOTE | 2020-04-18 18:48 | RADIOLOGY REPORT (SQ) ---
EXAM DESCRIPTION: SHOULDER RIGHT 2 OR MORE VIEWS IMAGES COMPLETED DATE/TIME: 04/18/2020 6:35 pm REASON FOR STUDY: R shoulder pain x 3 weeks, no trauma, hx of spurs COMPARISON: 12/05/2019 radiographs. NUMBER OF VIEWS: Three views. TECHNIQUE: Internal rotation, external rotation, and Y view images acquired of the right shoulder. LIMITATIONS: None. FINDINGS: MINERALIZATION: Normal. BONES: No acute fracture. No worrisome bone lesions. JOINTS: No dislocation. Widening at the acromioclavicular space, stable from prior. Acromioclavicul ar and osteophytosis. VISUALIZED LUNGS AND RIBS: No pneumothorax. No rib fracture. SOFT TISSUES: No radiopaque foreign body. OTHER: No other significant finding. IMPRESSION: No evidence of fracture. Stable widening at the acromioclavicular joint may represent remote grade 1 ligamentous injury. Mild Acromioclavicular and glenohumeral osteoarthropathy. TECHNICAL DOCUMENTATION: JOB ID: [id number] 2010 [employer]- All Rights Reserved Reading location - IP/workstation name: [email or web address]
[2020-04-18] MEDS ORDERED: HYDROCODONE/ACETAMINOPHEN 5-325 MG (6 TAB/ER DISP) PO PRN (19:04)
[2020-04-18 19:23] VITALS: BP 144/89
== END 2020-04-18 19:15 | disposition home or self-care (01) ==
LOC: ER 18:06
DX: M25.511 Pain in right shoulder (principal); I10 Essential (primary) hypertension; Z90.49 Acquired absence of other specified parts of digestive tract; Z90.710 Acquired absence of both cervix and uterus
CPT/HCPCS: 99284; 96372; 73030; J1885

== ENCOUNTER 2020-05-02 17:02 | Emergency (ER) | payer OTHER ==
[2020-05-02 17:11] VITALS: BP 155/115
--- NOTE | 2020-05-02 17:49 | ER Document Report ---
ED Medical Screen (RME) - General Chief Complaint: Abdominal Pain >50 Stated Complaint: BLOOD IN URINE,LOW BACK PAIN Time Seen by Provider: 05/02/20 17:41 Primary Care Provider: ERIC PRIDE MD [Primary Care Provider] - Follow up as needed Mode of Arrival: Ambulatory Information source: Patient Notes: 54-year-old female presents to ED for complaint of abdominal, pelvic, back pain. She states on March 26 she came to the emergency room with UTI got antibiotics they did work came back on the they gave her some more antibiotics but she did not fill them because she was feeling so bad went home took some of her Lunesta which reacted with her home medicines and ended up coming into the hospital EMS and coded and was on ICU in [facility] and was discharged on April 07. She states since then she has had been having the abdominal pain pelvic pain and back pain. She was seen here on 18 April for shoulder pain. But today she is having shooting pains to her abdomen pelvis and back. She states she called her Dr. Pride and [place] still and had an appointment for tomorrow but later on in the day when she noticed blood in the urine she called her back and her doctor told her to come to the emergency room and be evaluated tonight but to keep the appointment for tomorrow. I have greeted and performed a rapid initial assessment of this patient. A comprehensive ED assessment and evaluation of the patient, analysis of test results and completion of medical decision making process will be conducted by an additional ED providers. TRAVEL OUTSIDE OF THE [place] IN LAST 30 DAYS: No - Related Data Allergies/Adverse Reactions: pentazocine lactate [From Talwin] Allergy (Intermediate, Verified 04/18/20 18:17) diphenhydramine HCl [From Benadryl] Allergy (Mild, Verified 04/18/20 18:17) metoclopramide HCl [From Reglan] Adverse Reaction (Intermediate, Verified 04/18/20 18:17) Histalet Forte Allergy (Severe, Uncoded 04/18/20 18:17) Past Medical History - Past Medical History Cardiac Medical History: Reports: Hx Hypertension Denies: Hx Pulmonary Embolism Pulmonary Medical History: Reports: Hx Asthma, Hx Bronchitis, Hx Pneumonia - received the pneumovax and influenza vaccine in April Denies: Hx Tuberculosis Neurological Medical History: Reports: Hx Migraine - awaiting an ablation, sees pain management in [place], on Dilaudid 4mg Endocrine Medical History: Reports: Hx Hypothyroidism GI Medical History: Reports: Hx Gastroesophageal Reflux Disease, Hx Ulcer - Stomach Musculoskeltal Medical History: Reports Hx Arthritis, Reports Hx Fibromyalgia Psychiatric Medical History: Reports: Hx Bipolar Disorder, Hx Depression - anxiety Past Surgical History: Reports: Hx Cardiac Catheterization - X 2, Hx Cholecystectomy, Hx Hysterectomy, Hx Orthopedic Surgery - r arm x 10, Hx Thyroid Surgery - thyroidectomy. Denies: Hx Pacemaker - Immunizations Immunizations up to date: Yes Hx Diphtheria, Pertussis, Tetanus Vaccination: Yes Physical Exam - Vital signs Vitals: Temp Pulse Resp BP Pulse Ox 97.3 F 90 18 155/115 H 98 05/02/20 17:10 05/02/20 17:10 05/02/20 17:10 05/02/20 17:10 05/02/20 17:10 Course - Vital Signs Vital signs: Temp Pulse Resp BP Pulse Ox 97.3 F 90 18 155/115 H 98 05/02/20 17:10 05/02/20 17:10 05/02/20 17:10 05/02/20 17:10 05/02/20 17:10 Doctor's Discharge - Discharge Referrals: ERIC PRIDE MD [Primary Care Provider] - Follow up as needed
[2020-05-02 19:11] LABS: ALBUMIN 4.1 g/dL (3.5-5.0); ALKALINE PHOSPHATASE 80 U/L (38-126); ANION GAP 10 (5-19); ASPARTATE AMINO TRANSFERASE 27 U/L (14-36); BILIRUBIN,DIRECT 0.1 mg/dL (0.0-0.4); BILIRUBIN,TOTAL 0.4 mg/dL (0.2-1.3); BLOOD UREA NITROGEN 11 mg/dL (7-20); CALCIUM 8.9 mg/dL (8.4-10.2); CARBON DIOXIDE 26 mmol/L (22-30); CHLORIDE 104 mmol/L (98-107); GLUCOSE 100 mg/dL (75-110); POTASSIUM 3.1 mmol/L (3.6-5.0); TOTAL PROTEIN 6.9 g/dL (6.3-8.2)
[2020-05-02 19:12] LABS: APPEARANCE,URINE SLIGHTLY-CLOUDY; BILIRUBIN,URINE NEGATIVE (NEGATIVE); COLOR,URINE YELLOW; GLUCOSE, URINE NEGATIVE (NEGATIVE); KETONES,URINE NEGATIVE (NEGATIVE); LEUKOCYTE ESTERASE,URINE NEGATIVE (NEGATIVE); NITRITE,URINE NEGATIVE (NEGATIVE); PROTEIN,URINE 100 mg/dL (NEGATIVE)
== END 2020-05-02 20:12 | disposition left against medical advice (07) ==
LOC: ER 17:02
DX: R10.9 Unspecified abdominal pain (principal); M54.5 Low back pain; R31.9 Hematuria, unspecified; R10.2 Pelvic and perineal pain; I10 Essential (primary) hypertension
CPT/HCPCS: 36415; 80053; 81001; 87086; 87088; 99281

== ENCOUNTER 2020-07-17 21:23 | Emergency (ER) | payer OTHER ==
[2020-07-17 21:53] LABS: ABSOLUTE BASOPHILS # (AUTO) 0.1 10^3/uL (0.0-0.2); ABSOLUTE EOSINOPHILS # (AUTO) 0.1 10^3/uL (0.0-0.6); ABSOLUTE LYMPHOCYTES (AUTO) 1.8 10^3/uL (0.5-4.7); ABSOLUTE MONOCYTES (AUTO) 0.7 10^3/uL (0.1-1.4); ABSOLUTE NEUT (AUTO) 4.2 10^3/uL (1.7-8.2); EOSINOPHILS % (AUTO) 1.6 % (0-6); HEMATOCRIT 33.7 % (36.0-47.0); HEMOGLOBIN 11.8 g/dL (12.0-15.5); LYMPHOCYTES % (AUTO) 26.4 % (13-45); MEAN CORPUSCULAR HEMOGLOBIN 35.4 pg (27.0-33.4); MEAN CORPUSCULAR HGB CONC 34.9 g/dL (32.0-36.0); MEAN CORPUSCULAR VOLUME 101 fl (80-97); MONOCYTES % (AUTO) 9.5 % (3-13); PLATELET COUNT 181 10^3/uL (150-450); RED BLOOD COUNT 3.33 10^6/uL (3.72-5.28); RED CELL DISTRIBUTION WIDTH 13.3 % (11.5-14.0); SEGMENTED NEUTROPHILS % (AUTO) 61.5 % (42-78); TOTAL CELLS COUNTED % (AUTO) 100 %; WHITE BLOOD COUNT 6.9 10^3/uL (4.0-10.5)
--- NOTE | 2020-07-17 22:14 | ER Document Report ---
ED General - General Chief Complaint: Accidental Overdose Stated Complaint: ACCIDENTAL OVERDOSE Time Seen by Provider: 07/17/20 22:09 Primary Care Provider: ERIC PRIDE MD [Primary Care Provider] - Follow up as needed TRAVEL OUTSIDE OF THE [place] IN LAST 30 DAYS: No - HPI Notes: 54-year-old female presents after accidental overdose. Patient is on chronic opioids for right shoulder pain. States that she believes she has a torn rotator cuffs, she had an MRI on 06/22 in [place], she has a follow-up appointment on August 10 to get the results. She sees pain management for this pain. She is on Xtampza ER which is an extended release oxycodone twice a day, she also has oxycodone immediate release twice a day for breakthrough pain. She states that she accidentally took an extra extended release instead of an immediate release for increased pain today. She reports that she typically does not take her extra medications. She reports that she gets pill counts at pain management and has never had an issue with abnormal pill counts. She denies any self-harm. She is unsure what time she took the extra pill, though notes it was this evening. Per EMS/nursing note, patient son called EMS when she was noted to have an altered level of consciousness at home. - Related Data Allergies/Adverse Reactions: pentazocine lactate [From Talwin] Allergy (Intermediate, Verified 04/18/20 18:17) diphenhydramine HCl [From Benadryl] Allergy (Mild, Verified 04/18/20 18:17) metoclopramide HCl [From Reglan] Adverse Reaction (Intermediate, Verified 04/18/20 18:17) Histalet Forte Allergy (Severe, Uncoded 04/18/20 18:17) Past Medical History - General Information source: Patient - Social History Smoking Status: Unknown if Ever Smoked Family History: CAD - Past Medical History Cardiac Medical History: Reports: Hx Hypertension Denies: Hx Pulmonary Embolism Pulmonary Medical History: Reports: Hx Asthma, Hx Bronchitis, Hx Pneumonia - received the pneumovax and influenza vaccine in April Denies: Hx Tuberculosis Neurological Medical History: Reports: Hx Migraine - awaiting an ablation, sees pain management in [place], on Dilaudid 4mg Endocrine Medical History: Reports: Hx Hypothyroidism GI Medical History: Reports: Hx Gastroesophageal Reflux Disease, Hx Ulcer - Stomach Musculoskeletal Medical History: Reports Hx Arthritis, Reports Hx Fibromyalgia Psychiatric Medical History: Reports: Hx Bipolar Disorder, Hx Depression - anxiety Past Surgical History: Reports: Hx Cardiac Catheterization - X 2, Hx Cholecystectomy, Hx Hysterectomy, Hx Orthopedic Surgery - r arm x 10, Hx Thyroid Surgery - thyroidectomy. Denies: Hx Pacemaker - Immunizations Immunizations up to date: Yes Hx Diphtheria, Pertussis, Tetanus Vaccination: Yes Hx Pneumococcal Vaccination: 02/28/10 Review of Systems - Review of Systems Constitutional: No symptoms reported EENT: No symptoms reported Cardiovascular: No symptoms reported Respiratory: No symptoms reported Gastrointestinal: No symptoms reported Genitourinary: No symptoms reported Female Genitourinary: No symptoms reported Musculoskeletal: No symptoms reported Skin: No symptoms reported Hematologic/Lymphatic: No symptoms reported Neurological/Psychological: No symptoms reported Physical Exam - Vital signs Vitals: Resp BP Pulse Ox 14 111/58 L 93 07/17/20 21:30 07/17/20 21:30 07/17/20 21:30 - General General appearance: Appears well In distress: None Notes: Intermittent somnolence, but awakens to voice and is able to carry on a conversation - HEENT Head: Normocephalic, Atraumatic Extraocular movements intact: Yes Pupils: PERRL - Respiratory Respiratory status: No: Depressed respirations Breath sounds: Normal - Cardiovascular Rhythm: Regular Heart sounds: Normal auscultation - Abdominal Inspection: Obese Tenderness: Nontender - Extremities General lower extremity: No: Edema - Neurological Neuro grossly intact: Yes Cognition: Normal Orientation: AAOx4 - Psychological Associated symptoms: Normal affect - Skin Skin Temperature: Warm Course - Re-evaluation Re-evalutation: 54-year-old female presents after taking extra dose of extended release oxycodone, totaling 3 doses today. Had decreased level of consciousness at home. On exam patient is intermittently somnolent, though she will awaken and carry on a conversation. She denies any intent of self-harm. She is well- appearing, hemodynamically stable, lungs are clear and there are no decreased respirations. Will continue to monitor while in the emergency department, I suspect she is likely experiencing effects of too many narcotics, will monitor closely for any need for Narcan. Hopefully will metabolize off in a few hours. 07/18/20 01:01 Patient's mental status has markedly improved. She is currently awake and using her cell phone. She did not have any decline in respirations. Feel she is appropriate for discharge at this time. She is currently trying to call a ride. Return precautions given, stable at time of discharge. - Vital Signs Vital signs: Temp Pulse Resp BP Pulse Ox 98.4 F 87 14 98/63 L 98 07/17/20 21:35 07/17/20 21:35 07/17/20 23:22 07/17/20 23:22 07/17/20 23:22 - Laboratory Results Result Diagrams: 07/17/20 21:43 07/17/20 21:43 Laboratory Results Interpreted: 07/17/20 07/17/20 21:43 21:43 RBC 3.33 L Hgb 11.8 L Hct 33.7 L MCV 101 H MCH 35.4 H Chloride 108 H Anion Gap 4 L Glucose 118 H Critical Laboratory Results Reviewed: No Critical Results - Radiology Results Critical Radiology Results Reviewed: No Critical Results - EKG Interpretation by Me Additional EKG results interpreted by me: EKG is interpreted by me. Sinus rhythm, rate 84. Narrow QRS, QTC within normal limits. No ST segment elevation or depression. Discharge - Discharge Clinical Impression: Opioid intoxication Qualifiers: Complication of substance-induced condition: uncomplicated Qualified Code(s): F11.920 - Opioid use, unspecified with intoxication, uncomplicated Disposition: HOME, SELF-CARE Additional Instructions: Please continue medications as prescribed. Please follow-up with pain management to have a formal pill count. Return to the emergency department for any concerning worsening symptoms. Referrals: ERIC PRIDE MD [Primary Care Provider] - Follow up as needed
[2020-07-17 22:22] LABS: ALBUMIN 3.9 g/dL (3.5-5.0); ALKALINE PHOSPHATASE 63 U/L (38-126); ASPARTATE AMINO TRANSFERASE 27 U/L (14-36); BILIRUBIN,DIRECT 0.2 mg/dL (0.0-0.4); BILIRUBIN,TOTAL 0.6 mg/dL (0.2-1.3); BLOOD UREA NITROGEN 17 mg/dL (7-20); CALCIUM 8.5 mg/dL (8.4-10.2); CARBON DIOXIDE 29 mmol/L (22-30); CHLORIDE 108 mmol/L (98-107); GLUCOSE 118 mg/dL (75-110); POTASSIUM 4.2 mmol/L (3.6-5.0); TOTAL PROTEIN 6.8 g/dL (6.3-8.2)
[2020-07-17 22:29] LABS: ALCOHOL < 10 mg/dL (NONE DETECTED)
[2020-07-17 22:34] LABS: ANION GAP 4 (5-19)
[2020-07-18 05:56] VITALS: BP 113/65
--- NOTE | 2020-07-18 07:37 | EKG REPORT ---
SEVERITY:- ABNORMAL ECG - SINUS RHYTHM LEFT VENTRICULAR HYPERTROPHY : Confirmed by: Chivo Hsu MD 18-Jul-2020 07:37:24
== END 2020-07-18 05:57 | disposition home or self-care (01) ==
LOC: ER 21:23
DX: F11.920 Opioid use, unspecified with intoxication, uncomplicated (principal); T40.2X1A Poisoning by other opioids, accidental (unintentional), initial encounter; G89.29 Other chronic pain; M25.511 Pain in right shoulder; I10 Essential (primary) hypertension
CPT/HCPCS: 36415; 80053; 80307; 83735; 85025; 93005; 93010; 99284